=== PATIENT | female | born 1965 | race Caucasian/White ===

== ENCOUNTER 2020-09-06 07:46 | Outpatient (REF) | payer BC, SELFPAY ==
--- NOTE | 2020-09-06 08:43 | XR_ITS ---
EXAMINATION: XR CERVICAL SPINE CLINICAL INFORMATION: Pain COMPARISON: None TECHNIQUE: 3 views of the cervical spine were obtained. FINDINGS: Bone alignment is normal. No fracture or dislocation is seen. There is degenerative spondylosis and degenerative disc disease at C5-C6 and C6-C7. There is mild degenerative spondylosis at C4-C5. Prevertebral soft tissues are normal. XR/XR cervical spine 2V IMPRESSION: Degenerative changes.
[2020-09-06 10:12] LABS: Alanine Aminotransferase 21 U/L (0-31); Albumin Level 4.7 g/dL (3.5-5.0); Alkaline Phosphatase 92 U/L (39-117); Anion Gap 11 (12-20); Aspartate Amino Transferase 22 U/L (5-31); Bilirubin Total 0.4 mg/dL (0.0-1.0); Blood Urea Nitrogen 22 mg/dL (9-16); C Reactive Protein 0.26 mg/dL (< or = 0.50); Calcium 9.6 mg/dL (8.4-10.2); Carbon Dioxide 30 mmol/L (22-29); Chloride 101 mmol/L (96-108); Estimated Glomerular Filt Rate > 60; Glucose Random 93 mg/dL (60-115); Potassium 4.2 mmol/l (3.3-5.1); Rheumatoid Factor < 15.0 IU/mL (<15.0); Sodium 138 mmol/L (135-145); Total Protein 7.4 g/dL (6.5-8.0)
[2020-09-06 10:35] LABS: Thyroid Stimulating Hormone 1.24 uIU/mL (0.32-4.0)
[2020-09-07 11:42] LABS: Thyroglobulin Antibodies <1 IU/mL (< or = 1); Thyroid Peroxidase Antibodies 1 IU/mL (<9)
[2020-09-07 12:53] LABS: Anti DNA DS Antibody 1 IU/mL; Antibody to SS-A Antigen <1.0 NEG AI (<1.0 NEG); Antibody to SS-B Antigen <1.0 NEG AI (<1.0 NEG); SM/Ribonucleoprotein Ab <1.0 NEG AI (<1.0 NEG); Smith Protein <1.0 NEG AI (<1.0 NEG)
[2020-09-07 13:17] LABS: Complement C3 127 mg/dL (83-193)
[2020-09-10 11:37] LABS: Vitamin D 25-OH, D2 <4 ng/mL; Vitamin D 25-OH, D3 27 ng/mL; Vitamin D 25-OH, Total 27 ng/mL (30-100)
[2020-09-11 13:03] LABS: Anti Nuclear Antibody Screen POSITIVE (NEGATIVE); Anti Nuclear Antibody Titer 1:40 titer
[2020-09-11 13:33] LABS: Cyclic Citrullinated Peptide <16 UNITS
== END 2020-09-06 07:47 | disposition home or self-care (01) ==
LOC: HO.LAB 07:46
PROVIDERS: PCP Internal Medicine; Referring Provider Internal Medicine; Visit Provider Student in an Organized Health Care Education/Training Program
DX: M54.5 Low back pain (principal); M54.2 Cervicalgia
CPT/HCPCS: 36415; 72040; 80053; 82306; 82550; 84443; 86038; 86039; 86140; 86160; 86200; 86225; 86235; 86376; 86431; 86800

== ENCOUNTER → 2020-09-22 07:36 | Outpatient (BNVA) | payer BC, SELFPAY | PROVIDERS: PCP Internal Medicine; Visit Provider Student in an Organized Health Care Education/Training Program | DX: Z13.89 Encounter for screening for other disorder (principal) ==

== ENCOUNTER 2020-11-18 18:33 | Emergency (ER) | payer BC, SELFPAY ==
--- NOTE | ~2020-11-18 | XR_ITS ---
EXAMINATION: XR SHOULDER, RIGHT CLINICAL INFORMATION: Fall. Pain COMPARISON: None TECHNIQUE: Three views of the right shoulder. FINDINGS: Normal alignment. No fracture focal lesion or periosteal new bone. Surgical clips project in the axilla. No suspicious abnormality in the visualized portions of the chest. XR/XR shoulder RT min 2V IMPRESSION: No fracture or subluxation around the right shoulder.
[2020-11-18 18:44] VITALS: BP 138/75; PULSE 71; RESP 18; TEMP 36.7; O2SAT 98; BMI 29.2
--- NOTE | 2020-11-18 19:16 | ED.EXTPRO ---
HPI - Extremity Problem General Chief complaint: Extremity Injury, Upper Stated complaint: R shoulder pain Time Seen by Provider: 11/18/20 18:49 Source: patient Mode of arrival: ambulatory Limitations: no limitations History of Present Illness HPI Narrative: 55 yo female here with shoulder pain s/p fall. Patient tells me she was out hiking and slipped on the ice. She tried to catch herself with her right arm and so she grabbed a tree branch externally rotating and hyperextending her arm backwards. Denies hitting her head or loss of consciousness. The patient is here with right upper extremity pain and limited range of motion Related Data Home Medications Medication Instructions Recorded Confirmed acetaminophen 325 mg tablet 650 mg PO Q6H PRN 09/06/20 09/06/20 ibuprofen 200 mg tablet 400 mg PO Q8H 09/06/20 09/06/20 Previous Rx's Medication Instructions Recorded levothyroxine 50 mcg tablet 50 mcg PO DAILY #90 tab 08/15/20 lisinopril 10 1 tab PO DAILY #90 tab 08/15/20 mg-hydrochlorothiazide 12.5 mg tablet citalopram 20 mg tablet 10 mg PO DAILY #45 tab 09/01/20 trazodone 50 mg tablet 50 mg PO BEDTIME PRN #90 tab 09/06/20 Allergies Allergy/AdvReac Type Severity Reaction Status Date / Time codeine [CODEINE] Allergy Intermediate VOMIT Verified 09/22/20 07:40 Review of Systems Review of Systems: Yes all other systems are reviewed and are negative Constitutional: Constitutional: Reports no additional constitutional complaints, Denies body ache(s), Denies chills, Denies fever(s), Denies headache(s) and Denies weakness Eyes: Eyes: Reports no additional eye complaints and Denies change in vision ENT: Reports system reviewed and no additional complaints, except as documented, Denies dizziness, Denies headache(s), Denies nasal congestion, Denies nasal discharge and Denies neck pain Cardiovascular: Cardiovascular: Reports no additional cardiovascular complaints, Denies chest pain, Denies leg edema and Denies dyspnea Respiratory: Respiratory: Reports no additional respiratory complaints, Denies cough and Denies dyspnea Gastrointestinal: Gastrointestinal: Reports no additional gastrointestinal complaints, Denies abdominal pain, Denies diarrhea, Denies nausea and Denies vomiting Genitourinary: Genitourinary: Reports no additional female genitourinary complaints and Denies urinary incontinence Musculoskeletal: Musculoskeletal: Reports no additional musculoskeletal complaints, Denies back pain, Reports arthralgias, Denies joint swelling, Reports limited range of motion, Denies neck pain, Denies numbness and Denies tingling Integumentary/Breasts: Skin/Breast: Reports system reviewed and no additional complaints, except as docu and Denies rash Neurologic: Reports system reviewed and no additional complaints, except as documented, Denies Abnormal speech present, Denies dizziness, Denies headache(s), Denies numbness, Denies tingling and Denies weakness PMF Past Medical History Attestation statement: The following information was validated with the patient. Source: old records reviewed and nursing notes reviewed Medical History Breast cancer Hypertension Hypothyroid Surgical History H/O bilateral mastectomy Social History Social History Alcohol intake: never Smoking Status: Never smoker Advance Directives: No Advance Directives Information Provided: No Physical Exam Vital Signs: Vital Signs: Last Vital Signs Temp 98.1 F 11/18/20 18:44 Pulse 71 11/18/20 18:44 Resp 18 11/18/20 18:44 BP 138/75 11/18/20 18:44 Pulse Ox 98 11/18/20 18:44 Body Mass Index 29.2 Const: General: cooperative, healthy appearing, comfortable and no acute distress Orientation/consciousness: patient oriented x3 Limitations: no limitations HENMT: Head: Yes normal to inspection Ears: hearing grossly normal bilaterally General nose exam: Normal external nose present Face and sinus: Yes normal facial exam Mouth: Normal oral and palatal mucosa present Throat: Yes posterior oropharynx normal Eyes: General: appearance normal, both eyes and all related structures Pupils: Equal, round and reactive pupils present Neck: Neck: Yes normal visual inspection Chest: Chest palpation & inspection: normal inspection of the chest Resp: Effort & Inspection: normal respiratory effort Auscultation: clear to auscultation bilaterally Cardio: Rate: regular rate Rhythm: regular rhythm Peripheral pulses: Peripheral pulses 2+ throughout GI: Inspection: Yes normal to inspection Palpation (GI): Soft to palpation and nontender Auscultation: normal bowel sounds Back/Spine/Pelvis: Thoracic/Lumbar Spine: thoracic and lumbar spine normal to inspection Skin: General skin exam: no rashes or lesions noted Neuro: General: patient oriented x3, no focal motor deficits and normal sensation to monofilament Cranial nerves: Yes Equal, round and reactive pupils present Cognition (Neuro): normal cognition Speech: No Abnormal speech present Gait exam (Neuro): Normal gait present Motor exam (neuro): 5/5 motor strength present throughout Extrem: General: Yes normal to inspection Right upper extremity: normal to inspection (Tenderness over the anterior shoulder), full ROM (Patient with very limited range of motion with abduction. ) and normal capillary refill; no cyanosis, no edema and joint enlargement noted Course Course Course Narrative: 55 yo female here with right shoulder pain, limited rom after a external rotation/hyperextension injury today. X-rays show no acute fracture or subluxation. Over the mid shaft of the clavicle concern for ?fx however discussed with radiologist who tells me this is a nutrient vessel and no fx. AC joint intact. Due to limited ROM and moderate pain on exam will place in sling and refer to orthopedics for repeat evaluation. Reviewed worrisome signs and symptoms would return to the emergency department. Comfortable discharge home. Procedures Orthopedic Splinting/Casting Injury #1: Side: right Upper Extremity Injury Location: shoulder Upper Extremity Immobilizer: sling/shoulder immobilizer MDM - Extremity (Nontraumatic) Imaging Data shoulder x-ray: Attestation: I personally reviewed and interpreted this imaging study as follows: Radiologist's impression: [address] [id number] ReportSigned Patient: Shana Dove#: [id number]: 1965Acct:[id number]/Sex: 55 / FADM Date: 11/18/20Loc: [facility] Dr: Ordering Physician: VIN WILKINSON NP Date of Service: 11/18/20 Procedure(s): XR shoulder RT min 2V Accession Number(s): [id number] cc: VIN WILKINSON NP~ EXAMINATION: XR SHOULDER, RIGHT CLINICAL INFORMATION: Fall. Pain COMPARISON: None TECHNIQUE: Three views of the right shoulder. FINDINGS: Normal alignment. No fracture focal lesion or periosteal new bone. Surgical clips project in the axilla. No suspicious abnormality in the visualized portions of the chest. XR/XR shoulder RT min 2V IMPRESSION: No fracture or subluxation around the right shoulder. Discharge Plan Discharge Clinical Impression: Right shoulder strain Qualifiers: Encounter type: initial encounter Qualified Code(s): S46.911A - Strain of unspecified muscle, fascia and tendon at shoulder and upper arm level, right arm, initial encounter Patient Disposition: Home, Self-Care Instructions: Muscle Strain (ED) Additional Instructions: Ice to the area. 20 minutes on 20 minutes off Sling for comfort Call orthopedics Friday for a follow-up appointment. Your x-rays were read as unremarkable however due to the mechanism of injury and your amount of pain with limited range of motion we will refer you to orthopedics. Prescriptions: No Action levothyroxine 50 mcg tablet 50 mcg PO DAILY Qty: 90 RF: 1 lisinopril-hydrochlorothiazide 10-12.5 mg tablet 1 tab PO DAILY Qty: 90 RF: 1 citalopram 20 mg tablet 10 mg PO DAILY Qty: 45 RF: 1 trazodone 50 mg tablet 50 mg PO BEDTIME PRN (Reason: insomnia) Qty: 90 RF: 1 ibuprofen 200 mg tablet 400 mg PO Q8H RF: 0 acetaminophen [Tylenol] 325 mg tablet 650 mg PO Q6H PRNRF: 0 Referrals: Jam Rodgers PA-C [Physician [employer] Refe[employer]] - 2 days Interventions: ED Discharge Assessment Last Done: 11/18/20 19:48 Discharge Date/Time: 11/18/20 19:49
[2020-11-18] MEDS: Ibuprofen 400 MG TABLET 600 MG PO (19:37)
== END 2020-11-18 19:49 | disposition home or self-care (01) ==
PROVIDERS: Emergency Provider Internal Medicine; PCP Internal Medicine
DX: S46.911A Strain of unspecified muscle, fascia and tendon at shoulder and upper arm level, right arm, initial encounter (principal); W00.0XXA Fall on same level due to ice and snow, initial encounter; I10 Essential (primary) hypertension; Y93.31 Activity, mountain climbing, rock climbing and wall climbing; Y92.828 Other wilderness area as the place of occurrence of the external cause; Y99.8 Other external cause status; Z85.3 Personal history of malignant neoplasm of breast
CPT/HCPCS: 73030; 99283

== ENCOUNTER 2021-06-13 10:32 | Outpatient (REF) | payer BC, SELFPAY ==
[2021-06-13 11:29] LABS: Hematocrit 37.2 % (37-47); Hemoglobin 12.6 g/dl (12.0-16.0); Mean Corpuscular HGB Conc 33.9 g/dl (31.0-35.0); Mean Corpuscular Hemoglobin 30.7 pg (27.0-33.0); Mean Corpuscular Volume 90.7 fL (80-98); Mean Platelet Volume 9.4 fL (9.4-12.3); Platelet Count 265 X10*3/uL (160-400); Red Cell Distribution Width 11.7 % (11.0-16.0); White Blood Count 4.6 X10*3/uL (4.8-10.8)
[2021-06-13 12:11] LABS: Creatinine Urine 92.32 mg/dL; Microalbum/Creatinine Ratio Ur 10.8 ug/mg cr
[2021-06-13 12:54] LABS: Alanine Aminotransferase 12 U/L (0-31); Albumin Level 4.5 g/dL (3.5-5.0); Alkaline Phosphatase 78 U/L (39-117); Anion Gap 12 (12-20); Aspartate Amino Transferase 16 U/L (5-31); Bilirubin Total 0.2 mg/dL (0.0-1.0); Blood Urea Nitrogen 23 mg/dL (9-16); Calcium 9.4 mg/dL (8.4-10.2); Carbon Dioxide 28 mmol/L (22-29); Chloride 104 mmol/L (96-108); Cholesterol 232 mg/dL; Estimated Glomerular Filt Rate > 60; Glucose Fasting 96 mg/dL (60-99); HDL Cholesterol 81 mg/dL; LDL Cholesterol Calculated 143 mg/dl; Potassium 4.1 mmol/L (3.3-5.1); Sodium 140 mmol/L (135-145); Triglycerides 42 mg/dL
== END 2021-06-13 10:33 | disposition home or self-care (01) ==
LOC: HO.LAB 10:32
PROVIDERS: PCP Internal Medicine; Visit Provider Physician Assistant
DX: I10 Essential (primary) hypertension (principal); E78.1 Pure hyperglyceridemia; E03.9 Hypothyroidism, unspecified
CPT/HCPCS: 36415; 80053; 80061; 82043; 84443; 85027

== ENCOUNTER 2021-07-01 10:27 | Emergency (ER) | payer BC, SELFPAY ==
--- NOTE | ~2021-07-01 | CT_ITS ---
EXAMINATION: CT HEAD WITHOUT CONTRAST CLINICAL INFORMATION: Left frontal headaches COMPARISON: None TECHNIQUE: Contiguous axial imaging was performed from the skull base to vertex without intravenous administration of contrast. This CT examination was performed using dose optimization techniques as appropriate, variously including the following: *Automated exposure control *Adjustment of mA and/or kV according to patient size (this includes techniques or standardized protocols for targeted exams where dose is matched to indication/reason for exam; i.e. extremities or head) *Use of iterative reconstruction technique DLP: 609 mGy-cm FINDINGS: There is no evidence of acute intracranial hemorrhage or territorial infarction. No abnormal mass effect or midline shift is seen. Dean to white matter differentiation is well preserved. No extra-axial fluid collections are identified. The ventricles are normal in size. There is no abnormal attenuation within the brain parenchyma. The osseous structures and soft tissues are normal. The mastoid air cells and visualized portions of the paranasal sinuses are well aerated. CT/CT head/brain wo con IMPRESSION: No acute intracranial pathology.
[2021-07-01 10:35] VITALS: BP 153/94; PULSE 73; RESP 18; TEMP 36.6; O2SAT 100; BMI 28.3
[2021-07-01 10:54] VITALS: BP 157/58; PULSE 67; RESP 12; TEMP 36.8; O2SAT 98
--- NOTE | 2021-07-01 11:13 | ED.HA ---
HPI - Headache General Chief Complaint: Headache Stated Complaint: l sided head pain sweats Time Seen by Provider: 07/01/21 10:39 Source: patient and family Mode of arrival: ambulatory Limitations: no limitations History of Present Illness HPI Narrative: 55-year-old female presents complaining of left-sided headache. She states that is much better than it was yesterday. She states she took her regular migraine medication yesterday and symptoms have resolved but yesterday she had sweating and it was a sharp pain to left side. Asked if this is her typical migraine she stated that it was different but could not explain how it was different. She states she typically has pain to the back of her neck. She denies any falls fevers nausea vomiting or diarrhea. Patient states she was at work yesterday was holding her head. She has been taking aspirin for the past several days for her headache as well. She states she has longstanding history of migraines negative herself Imitrex. Her talked her into coming in here Related Data Previous Rx's Medication Instructions Recorded trazodone 50 mg tablet 50 mg PO BEDTIME PRN #90 tab 06/05/21 citalopram 20 mg tablet 20 mg PO DAILY #90 tab 06/06/21 levothyroxine 50 mcg tablet 50 mcg PO DAILY #90 tab 06/06/21 lisinopril 10 1 tab PO DAILY #90 tab 06/06/21 mg-hydrochlorothiazide 12.5 mg tablet sumatriptan succinate 25 mg tablet 25 mg PO Q2-4H PRN 30 Days #9 tab 06/06/21 Allergies Allergy/AdvReac Type Severity Reaction Status Date / Time codeine [CODEINE] Allergy Intermediate VOMIT Verified 06/06/21 13:58 Review of Systems Review of Systems: Review of systems: General: Patient denies any fever chills recent illness or falls Musculoskeletal: Denies back pain or body aches or other injuries HEENT: denies headache, runny nose, ear pain Respiratory: denies shortness of breath, cough Cardiovascular: no chest pain or palpitations : denies dysuria, frequency Abdomen: no nausea vomiting denies abdominal pain Extremities: no swelling, no pain Skin: no diaphoresis Yes all other systems are reviewed and are negative PMF Past Medical History Medical History (Updated 07/01/21 @ 12:26 by Malik Mejia DO) Breast cancer Hypertension Hypothyroid Surgical History H/O bilateral mastectomy Social History Social History Housing: House Alcohol intake: never Patient Tobacco Use Status: Never used Tobacco e-Cigarette/Vaping Use: Never Used Second Hand Smoke Exposure: No Use of substances other than those prescribed or required for medical reasons: No Advance Directives: No Advance Directives Information Provided: No Patient : No Physical Exam Vital Signs: Vital Signs: Last Vital Signs Temp 98.2 F 07/01/21 11:57 Pulse 56 07/01/21 11:57 Resp 16 07/01/21 11:57 BP 147/76 H 07/01/21 11:57 Pulse Ox 98 07/01/21 11:57 Body Mass Index 28.3 Neurological exam: CN II- XII tested. Patient is alert and oriented to person place and time. Patient has no dysphagia or dysarthia, denies good vision in all four vision olguin no nystagmus on exam, good strength to upper and lower extremities with normal reflexes to brachioradialis, wrist, patella and achilles. Negative romberg, good finger to nose and heel to prather. General: Well-appearing well-nourished in no signs of distress HEENT: Normocephalic atraumatic Neck: No signs of JVD, no masses no tenderness or lymphadenopathy Cardiovascular: Regular rate and rhythm Respiratory: Clear to auscultation bilaterally Abdomen: Soft nontender no masses Extremities: Normal pedal pulses no signs of edema Skin: Dry warm no rashes Back: No tenderness full ROM MDM - Headache MDM Narrative Medical decision making narrative: Patient with signs of a migraine pain is unilateral yesterday she had sharp pains and she states she had some sweating. She has chronic neck pain and stiffness but no fevers no signs of meningitis. Patient looks well and she states she has never had any imaging even though she has had migraines for years. She did take her normal migraine cocktail yesterday. I offered to give her a migraine cocktail here but she refuses to have any IVs. She states she only wants meds and pill form and is adamant that she has to have neuro imaging at this time. I will give the patient naproxen and reassess. CT head was ordered. CT is normal patient looks well I will discharge home Discharge Plan Discharge Clinical Impression: Headache Patient Disposition: Home, Self-Care Instructions: General Headache (ED) Additional Instructions: Her CT scan was completely normal please take Tylenol ibuprofen for pain please call follow-up with her doctor. Prescriptions: No Action trazodone 50 mg tablet 50 mg PO BEDTIME PRN (Reason: for insomnia) Qty: 90 RF: 1 citalopram 20 mg tablet 20 mg PO DAILY Qty: 90 RF: 1 levothyroxine 50 mcg tablet 50 mcg PO DAILY Qty: 90 RF: 1 lisinopril-hydrochlorothiazide 10-12.5 mg tablet 1 tab PO DAILY Qty: 90 RF: 1 sumatriptan succinate 25 mg tablet 25 mg PO Q2-4H PRN (Reason: migraine headache) 30 Days Qty: 9 RF: 0 Stand Alone Forms: Work/School Release
[2021-07-01] MEDS: NaPROXEN 500 MG TABLET PO (11:43)
[2021-07-01 11:57] VITALS: BP 147/76; PULSE 56; RESP 16; TEMP 36.8; O2SAT 98
== END 2021-07-01 12:30 | disposition home or self-care (01) ==
PROVIDERS: Emergency Provider Student in an Organized Health Care Education/Training Program; PCP Internal Medicine
DX: R51.9 Headache, unspecified (principal); I10 Essential (primary) hypertension
CPT/HCPCS: 70450; 99284

== ENCOUNTER 2022-01-12 19:00 | Emergency (ER) | payer BC, SELFPAY ==
--- NOTE | ~2022-01-12 | XR_ITS ---
EXAMINATION: XR SHOULDER, LEFT CLINICAL INFORMATION: Left shoulder pain. COMPARISON: None TECHNIQUE: AP external rotation, Grashey, scapular Y, and axillary views of the left shoulder. FINDINGS: No acute fracture or dislocation. Small acromioclavicular marginal osteophytes. No osseous erosion. No abnormal soft tissue calcification. Left axillary surgical clips. XR/XR shoulder LT min 2V IMPRESSION: Mild acromioclavicular osteoarthritis.
[2022-01-12 19:11] VITALS: BP 143/64; PULSE 67; RESP 18; TEMP 36.5; O2SAT 99; BMI 29.2
--- NOTE | 2022-01-12 19:42 | ED_ITS ---
HPI - Extremity Injury (Upper) General Chief Complaint: Extremity Injury, Lower Stated Complaint: left shoulder pain work injury Time Seen by Provider: 01/12/22 19:16 Source: patient Mode of arrival: ambulatory Limitations: no limitations History of Present Illness HPI narrative: This is a 56-year-old female past medical history significant for hypertension, hyperlipidemia, migraines, anxiety, hypothyroidism presenting to the emergency department with complaints of left shoulder pain atraumatic, and pain with deep inspiration. Patient tells me that she works at the [employer] and does a lot of overhead motions with her shoulders, she tells me that today she started having a sharp pain to the left shoulder, and shortness of breath, worse with deep inspiration all at the same time. She tells me at this time she has full range of motion to that shoulder however painful. She tells me she typically has a sore shoulder however not painful like this. She denies chest pain, nausea, vomiting, abdominal pain, fevers, chills. Patient is currently not taking any control medication, denies long travel, she tells me she does not have a sedentary lifestyle, no history of PE or DVT. Patient is not on anticoagulation MD complaint: injury to: left Onset (ago): hour(s) (5) Handedness: left Place: work Severity: severe Relieving factors: none Exacerbating factors: movement of extremity Associated symptoms: denies other symptoms Related Data Previous Rx's Medication Instructions Recorded trazodone 50 mg tablet 50 mg PO BEDTIME PRN #90 tab 06/05/21 citalopram 20 mg tablet 20 mg PO DAILY #90 tab 06/06/21 levothyroxine 50 mcg tablet 50 mcg PO DAILY #90 tab 06/06/21 lisinopril 10 1 tab PO DAILY #90 tab 06/06/21 mg-hydrochlorothiazide 12.5 mg tablet sumatriptan succinate 25 mg tablet 25 mg PO Q2-4H PRN 30 Days #9 tab 06/06/21 Allergies Allergy/AdvReac Type Severity Reaction Status Date / Time codeine [CODEINE] Allergy Intermediate VOMIT Verified 06/06/21 13:58 Review of Systems Review of Systems: Constitutional : No Weight loss, No Fever, No Chills, No Fatigue, No Malaise ENT/Mouth : No sore throat, No Rhinorrhea Eyes: No Eye Pain, No Swelling, No Redness Cardiovascular : No Chest Pain, + SOB, No Dyspnea on Exertion, No Orthopnea, No Edema, No Palpitations Respiratory : No Cough, No Sputum, No Wheezing Gastrointestinal : No Nausea, No Vomiting, No Diarrhea, No Constipation, No abdominal Pain, No Hematochezia, No Melena Genitourinary : No Dysuria, No Urinary Frequency, No Hematuria, Musculoskeletal : + joint pain, No Myalgias, No Joint Swelling Skin : No Skin Lesions, No rash Neuro : No Weakness, No Numbness, No Dizziness, No Headache Psych : No Anxiety/Panic, No Depression All other systems reviewed and are negative Yes all other systems are reviewed and are negative [facility] Past Medical History Attestation statement: The following information was validated with the patient. Source: old records reviewed and nursing notes reviewed Medical History (Updated 01/12/22 @ 19:57 by SANTIAGO Chapman) Breast cancer Hypertension Hypothyroid Surgical History H/O bilateral mastectomy Social History Social History Housing: House Alcohol intake: never Patient Tobacco Use Status: Never used Tobacco e-Cigarette/Vaping Use: Never Used Second Hand Smoke Exposure: No Advance Directives: No Physical Exam Vital Signs: Vital Signs: Last Vital Signs Temp 97.7 F 01/12/22 19:11 Pulse 67 01/12/22 19:11 Resp 18 01/12/22 19:11 BP 143/64 H 01/12/22 19:11 Pulse Ox 99 01/12/22 19:11 BMI result Body Mass Index 29.2 Vital signs stable Appearance: Alert.? Oriented X3.? No acute distress.? Head: Normocephalic, atraumatic, no step-offs or deformities Eyes: Pupils equal, round and reactive to light.? ENT: Pharynx normal.? Neck: Normal inspection.? Neck supple.? CVS: Normal heart rate and rhythm.? Pulses normal.? Respiratory: No respiratory distress.? Breath sounds normal.? Abdomen: Soft and nontender.? Skin: Skin warm and dry.? Normal skin color.? Normal skin turgor.? Extremities: No lower extremity edema.? No calf ttp. 5/5 strength to bilateral upper and lower extremities +full range of motion to b/l shoulders, elbows however she reports pain with ROM of left shoulder. No wrist drop bilaterally. No step-offs or deformities. No pain with palpation over AC joint, no separation noted. Radial pulses 2+ equal bilateral. Sensory and motor intact b/l. Neuro: Oriented X 3.? No motor deficit.? No sensory deficit. CN 2-12 intact Course Reevaluation(s) Reevaluation #1: Troponin negative. EKG nonischemic showing sinus bradycardia. Patient is having bradycardia however asymptomatic no dizziness, vision changes, lightheadedness. D-dimer negative. Unlikely that this is a PE or ACS. Patient not complaining of chest pain or shortness of breath. She now tells me that her pain with inspiration is worse when her shoulder hurts. Advised patient to follow-up with her PCP and orthopedics in 2 weeks if pain does not improve. Advised her she can take ibuprofen every 6 hours, Tylenol every 4 as needed for pain or discomfort. I educated patient on the fact that x-ray is not the preferred modality to evaluate ligaments or tendons and she may require further imaging such as an MRI in the future if pain persists. Advised her to return with new or worsening symptoms, outlined them on her discharge. Comfortable discharge home with PCP and Ortho follow-up as needed. Time: 21:04 MDM - Extremity Injury (Upper) [facility] Narrative Medical decision making narrative: 1945 56 yo f presents w/ atraumatic left shoulder pain progressively worsening over months, with an acute episode of severe shoulder pain today and associated shortness of breath, and pain with inspiration. Physical examination significant for full range of motion to bilateral shoulders, elbows however she reports pain with means of motion to left shoulder. No wrist drop bilaterally. radial pulses 2+ equal bilateral. Sensory and motor intact. Neurovascularly intact. Lungs clear. Regular rate and rhythm. Neuro nonfocal. Plan at this time is to obtain plain films to rule out acute fracture, dislocation, effusions, osteoarthritis Based off patient history and physical examination unlikely that this is a ligament or tendon tear. Likely osteoarthritis or rotator cuff inflammation. Due to patient's history and physical exam will also rule out ACS and PE. Medical Records Attestation: I reviewed the patient's medical records. Lab Data Attestation: I reviewed the patient's lab results. Labs: Lab Results 01/12/22 01/12/22 01/12/22 Range/Units 20:28 20:28 20:30 D-Dimer High Sensitivty < 150 NG/ML Troponin I High Sens < 3.5 (<3.5-17.0) ng/L Hold Yellow Top See Note Critical Care Time Critical Care Time Critical Care Time: No Discharge Plan Discharge Clinical Impression: Osteoarthritis of AC (acromioclavicular) joint, Osteoarthritis Patient Disposition: Home, Self-Care Instructions: Swollen Shoulder Joint (ED) Additional Instructions: Take your medications as prescribed. If you were prescribed antibiotics today, it is important that you take your medication to their entirety, do not skip any doses, do not finish them early. Follow-up with your primary care provider this week. Follow-up with orthopedics if symptoms do not improve within 1-2 weeks. You may require further imaging such as an MRI. You can take ibuprofen every 6 hours, Tylenol every 4 as needed for pain or discomfort. Return to the emergency department with new or worsening symptoms. Such as fevers, chills, chest pain, shortness of breath, nausea, vomiting, dizziness, headache, vision changes, lethargy, numbness, tingling, calf pain or tenderness, leg swelling. In case of emergency call 911 Your EKG looked good, no signs of acute ischemia. Your screening test for blood clot was negative. Your cardiac enzyme was also negative. Prescriptions: No Action trazodone 50 mg tablet 50 mg PO BEDTIME PRN (Reason: for insomnia) Qty: 90 1RF citalopram 20 mg tablet 20 mg PO DAILY Qty: 90 1RF levothyroxine 50 mcg tablet 50 mcg PO DAILY Qty: 90 1RF lisinopril-hydrochlorothiazide 10-12.5 mg tablet 1 tab PO DAILY Qty: 90 1RF sumatriptan succinate 25 mg tablet 25 mg PO Q2-4H PRN (Reason: migraine headache) 30 Days Qty: 9 0RF Rx Instructions: do not exceed 8 doses per 24 hrs Referrals: [facility] [Provider Group] - 2 weeks Jovanni Jimenez PA-C [Primary Care Provider] - 3 days Stand Alone Forms: Work/School Release
--- NOTE | 2022-01-12 20:12 | ECG_ITS ---
Test Reason : CHEST PAIN Blood Pressure : / mmHG Vent. Rate : 056 BPM Atrial Rate : 056 BPM P-R Int : 158 ms QRS Dur : 086 ms QT Int : 432 ms P-R-T Axes : 066 010 030 degrees QTc Int : 416 ms Sinus bradycardia Otherwise normal ECG No previous ECGs available Referred By: Rogelio Swan Electronically Signed By:HARDIK ZARAGOZA
[2022-01-12 20:59] LABS: Troponin-I High Sensitivity < 3.5 ng/L (<3.5-17.0)
[2022-01-12 21:02] LABS: D Dimer High Sensitivity < 150 NG/ML
== END 2022-01-12 21:28 | disposition home or self-care (01) ==
PROVIDERS: Physician Assistant; Emergency Provider Emergency Medicine Emergency Medical Services; PCP Physician Assistant
DX: M19.012 Primary osteoarthritis, left shoulder (principal); R06.02 Shortness of breath; I10 Essential (primary) hypertension
CPT/HCPCS: 36415; 73030; 84484; 85379; 93005; 99283

== ENCOUNTER 2022-01-14 10:46 | Emergency (ER) | payer BC, SELFPAY ==
[2022-01-14 11:04] VITALS: BP 134/69; PULSE 70; RESP 16; TEMP 36.3; O2SAT 100; BMI 28.3
--- NOTE | 2022-01-14 11:04 | ECG_ITS ---
Test Reason : cp,shldr pain Blood Pressure : / mmHG Vent. Rate : 069 BPM Atrial Rate : 069 BPM P-R Int : 136 ms QRS Dur : 088 ms QT Int : 402 ms P-R-T Axes : 066 014 056 degrees QTc Int : 430 ms Normal sinus rhythm Normal ECG When compared with ECG of 12-JAN-2022 20:34, Nonspecific T wave abnormality now evident in Lateral leads Referred By: Generic ED Physician Electronically Signed By:SHIKHA WALKER MD
== END 2022-01-14 16:01 | disposition left against medical advice (07) ==
PROVIDERS: Emergency Provider Emergency Medicine; PCP Physician Assistant
DX: R07.89 Other chest pain (principal); M25.512 Pain in left shoulder; M25.511 Pain in right shoulder
CPT/HCPCS: 93005; 99282; 99283

== ENCOUNTER 2022-01-30 15:46 | Outpatient (REF) | payer BC, SELFPAY ==
--- NOTE | ~2022-01-30 | XR_ITS ---
EXAMINATION: XR HIP, LEFT CLINICAL INFORMATION: Pain COMPARISON: None TECHNIQUE: Two views of the left hip. FINDINGS: Bones and soft tissues are normal. No fracture. Alignment is anatomic. Hip joint space is maintained. XR/XR hip LT min 2V IMPRESSION: Normal left hip.
== END 2022-01-30 15:47 | disposition home or self-care (01) ==
LOC: HO.XRAY 15:46
PROVIDERS: PCP Physician Assistant; Visit Provider Physician Assistant
DX: M25.552 Pain in left hip (principal)
CPT/HCPCS: 73502

== ENCOUNTER → 2022-02-01 08:18 | Outpatient (BNVA) | payer BC, SELFPAY | PROVIDERS: PCP Physician Assistant; Visit Provider Physician Assistant | DX: M75.102 Unspecified rotator cuff tear or rupture of left shoulder, not specified as traumatic (principal); M54.12 Radiculopathy, cervical region; M70.62 Trochanteric bursitis, left hip | CPT/HCPCS: 20610; J1040 ==

== ENCOUNTER → 2022-02-05 11:19 | Outpatient (BNVA) | payer BC, SELFPAY | PROVIDERS: PCP Physician Assistant; Visit Provider Physician Assistant | DX: M75.102 Unspecified rotator cuff tear or rupture of left shoulder, not specified as traumatic (principal) | CPT/HCPCS: 20610; J1040 ==

== ENCOUNTER 2022-02-17 13:41 | Emergency (ER) | payer BC, SELFPAY ==
--- NOTE | 2022-02-17 | ECG_ITS ---
Test Reason : CP Blood Pressure : / mmHG Vent. Rate : 065 BPM Atrial Rate : 065 BPM P-R Int : 134 ms QRS Dur : 094 ms QT Int : 404 ms P-R-T Axes : 070 019 051 degrees QTc Int : 420 ms Normal sinus rhythm Incomplete right bundle branch block Borderline ECG When compared with ECG of 14-JAN-2022 11:01, No significant change was found Referred By: Generic ED Physician Electronically Signed By:HARDIK ZARAGOZA
[2022-02-17 14:02] VITALS: BP 146/77; PULSE 68; RESP 18; TEMP 36.3; O2SAT 99; BMI 28.3
--- NOTE | 2022-02-17 15:51 | ED.EXTPRO ---
HPI - Extremity Problem General Chief complaint: Extremity Problem Stated complaint: L hip pain Time Seen by Provider: 02/17/22 14:12 Source: patient Mode of arrival: ambulatory History of Present Illness HPI Narrative: 56-year-old female with history of thyroid dysfunction presents with complaints of left hip giving out at work last night. She did not hit her head or lose consciousness. In the triage note patient states that she felt a snap with a burning pain, however she endorses that her hip has been an ongoing problem and she has seen both her primary care provider as well as Orthopedics. She states that Orthopedics ?injected her? but that she continues to have left hip pain. She denies any fever, chills, bowel or bladder dysfunction, fevers, chills. Patient has concerns regarding MS. Related Data Previous Rx's Medication Instructions Recorded citalopram 20 mg tablet 20 mg PO DAILY #90 tab 06/06/21 levothyroxine 50 mcg tablet 50 mcg PO DAILY #90 tab 06/06/21 sumatriptan succinate 25 mg tablet 25 mg PO Q2-4H PRN 30 Days #9 tab 06/06/21 trazodone 50 mg tablet 50 mg PO BEDTIME PRN #90 tab 01/15/22 lisinopril 10 1 tab PO DAILY #90 tab 02/07/22 mg-hydrochlorothiazide 12.5 mg tablet diclofenac sodium 75 mg 75 mg PO BID PRN 15 Days #30 tab 02/12/22 tablet,delayed release Allergies Allergy/AdvReac Type Severity Reaction Status Date / Time codeine [CODEINE] Allergy Intermediate VOMIT Verified 02/17/22 14:02 Review of Systems Review of Systems: Pertinent positives and negatives as stated in HPI 10 point review of systems is otherwise negative. [facility] Past Medical History Source: nursing notes reviewed Medical History Arthritis Breast cancer Costochondritis Fibromyalgia Hypertension Hypothyroid Surgical History H/O bilateral mastectomy Social History Social History Housing: House Alcohol intake: never Patient Tobacco Use Status: Never used Tobacco e-Cigarette/Vaping Use: Never Used Second Hand Smoke Exposure: No Advance Directives: No Advance Directives Information Provided: No service: No Current occupational status: employed Current occupation: [employer] Cognitive needs: No Hearing needs: No Vision needs: No Physical Exam Vital Signs: Vital Signs: Last Vital Signs Temp 97.3 F 02/17/22 14:02 Pulse 68 02/17/22 14:02 Resp 18 02/17/22 14:02 BP 146/77 H 02/17/22 14:02 Pulse Ox 99 02/17/22 14:02 BMI result Body Mass Index 28.3 VITAL SIGNS: Reviewed. GENERAL: Well developed, well nourished, in no acute distress. HEAD: Normocephalic/atraumatic EYES: PERRLA, EOMI EARS: Ext canals without abnormality OROPHARYNX: no oral lesions noted, posterior pharynx clear LUNGS: Normal breath sounds. No adventitious sounds or accessory muscle use. SpO2<99> CARDIOVASCULAR: Regular rate and rhythm without noted murmurs ABDOMEN: Soft, non-tender, non-distended with bowel sounds. MUSCULOSKELETAL: No tenderness, deformities, or effusions noted on gross inspection. EXTREMITIES: No cyanosis, clubbing or edema. SKIN: Inspection of the skin reveals no rashes NEUROLOGIC: Alert and oriented x 4. Strength and sensation to light touch were grossly intact x 4. Course Course Course Narrative: 56-year-old female with history and clinical presentation consistent multiple areas of osteoarthritis and now with left hip pain. Will obtain basic labs and will for inflammatory markers but patient was extensively counseled that there is no concern for hip or pelvic fracture and no evidence Notified by nursing that patient eloped MDM - Extremity (Nontraumatic) ECG Data Attestation EKG: I personally reviewed and interpreted this ECG as follows: Prior ECG tracings: available for review Interpretation: Normal sinus rhythm, incomplete right bundle branch block, heart rate 65, no STEMI, CT/QRS/QTC is within normal limits. Discharge Plan Discharge Clinical Impression: Hip pain, left Patient Disposition: Elopement Prescriptions: No Action trazodone 50 mg tablet 50 mg PO BEDTIME PRN (Reason: for insomnia) Qty: 90 0RF lisinopril-hydrochlorothiazide 10-12.5 mg tablet 1 tab PO DAILY Qty: 90 2RF diclofenac sodium 75 mg tablet,delayed release (DR/EC) 75 mg PO BID PRN (Reason: pain) 15 Days Qty: 30 0RF citalopram 20 mg tablet 20 mg PO DAILY Qty: 90 1RF levothyroxine 50 mcg tablet 50 mcg PO DAILY Qty: 90 1RF sumatriptan succinate 25 mg tablet 25 mg PO Q2-4H PRN (Reason: migraine headache) 30 Days Qty: 9 0RF Rx Instructions: do not exceed 8 doses per 24 hrs
== END 2022-02-17 17:28 | disposition left against medical advice (07) ==
PROVIDERS: Emergency Provider Student in an Organized Health Care Education/Training Program; PCP Physician Assistant
DX: M25.552 Pain in left hip (principal); I10 Essential (primary) hypertension; E78.5 Hyperlipidemia, unspecified
CPT/HCPCS: 93005; 99282; 99283

== ENCOUNTER 2022-02-26 11:38 | Outpatient (REF) | payer BC, SELFPAY ==
--- NOTE | ~2022-02-26 | XR_ITS ---
EXAMINATION: SI JOINTS. SACRUM/COCCYX CLINICAL INFORMATION: Sacrococcygeal disorder. COMPARISON: None TECHNIQUE: Sacrum/coccyx 3 views. SI joints 3 views. FINDINGS: SI joint: There is mild sclerosis seen along bilateral SI joints slightly greater on the right side but no erosive changes. No visible fracture or lytic process seen. Sacrum/coccyx: There is no visible fracture or lytic process. The soft tissues are normal. XR/XR sacroiliac joint min 3V IMPRESSION: Bilateral sacroiliitis. There is no visible acute fracture involving the sacrum or coccyx. The soft tissues are normal..
--- NOTE | ~2022-02-26 | XR_ITS ---
EXAMINATION: SI JOINTS. SACRUM/COCCYX CLINICAL INFORMATION: Sacrococcygeal disorder. COMPARISON: None TECHNIQUE: Sacrum/coccyx 3 views. SI joints 3 views. FINDINGS: SI joint: There is mild sclerosis seen along bilateral SI joints slightly greater on the right side but no erosive changes. No visible fracture or lytic process seen. Sacrum/coccyx: There is no visible fracture or lytic process. The soft tissues are normal. XR/XR sacrum coccyx min 2V IMPRESSION: Bilateral sacroiliitis. There is no visible acute fracture involving the sacrum or coccyx. The soft tissues are normal..
== END 2022-02-26 11:39 | disposition home or self-care (01) ==
LOC: HO.XRAY 11:38
PROVIDERS: PCP Physician Assistant; Visit Provider Nurse Practitioner Family
DX: M53.3 Sacrococcygeal disorders, not elsewhere classified (principal)
CPT/HCPCS: 72202; 72220

== ENCOUNTER 2022-05-07 06:09 | Outpatient (REF) | payer BC, SELFPAY ==
--- NOTE | ~2022-05-07 | FL_ITS ---
EXAMINATION: XR FLUOROSCOPY WITH IMAGES CLINICAL INFORMATION: Sacroiliac joint injections COMPARISON: February 26, 2022 TECHNIQUE: Fluoroscopy performed by Dr. Dakotah Ramirez. Fluoroscopy time: 0.5 minutes. Cumulative Dose: 7.58 mGy. DAP: 2.06 Gy-cm2. Images: 2. FINDINGS: [place] and contrast seen in the location of both left and right sacroiliac joints. FL/FL guidance in treatment room IMPRESSION: Fluoroscopy provided for pain management procedure.
== END 2022-05-07 06:10 | disposition home or self-care (01) ==
LOC: HO.RADIR 06:09
PROVIDERS: Visit Provider Anesthesiology
DX: M53.3 Sacrococcygeal disorders, not elsewhere classified (principal); M62.838 Other muscle spasm; M79.7 Fibromyalgia; M54.12 Radiculopathy, cervical region; M25.552 Pain in left hip
CPT/HCPCS: 27096; J3300

== ENCOUNTER 2022-05-08 10:00 | Outpatient (RCR) | payer BC, SELFPAY ==
[2022-05-01 09:09] VITALS: BP 135/67; PULSE 68; O2SAT 100
--- NOTE | 2022-05-01 11:39 | MHC.PT.EP ---
[facility] [place] Office [place] Office [place] Office [address] Tiny Gallo [address] [phone] F: [phone] F: [phone] F: [phone] F: [phone] Physical Therapy Plan of Care Date of Evaluation: Date of Surgery: Diagnosis: RADICULOPATHY, CERVICAL REGION Assessment: 56 YO FEMALE REF TO PT FOR CERVICAL PAIN W RADICULOPATHY EXACERBATED 02/17/22. 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 Pt HAS OTHER PMH INCLUDING BREAST CA W POLY MASTECTOMIES 9 YRS AGO, FIBROMYALGIA, ARTHRITIS, AND LEFT HIP/ SI Jt PAIN. OBJECTIVE FINDINGS: (+) LUMBOPELVIS ASYM, DECR POSTURAL AWARENESS, POST RC/ SCAP WEAKNESS, TIGHT ANT CHEST/ TISSUES, DECR CERV AROM, AND INTERM PAIN W RADIC SXS INTO HER Lt > Rt HAND. FUNCTIONALLY, Pt HAS DIFFIC W PAINTING, LOOKING UPWARDS, CHEWING, AND LIFTING OBJECTS. Pt WOULD BENEFIT FROM PT TO ADDRESS SOFT TISSUE IRRIT/ TIGHTNESS, POSTERIOR WEAKNESS, OVERALL POSTURE/ BODY MECH TO REDUCE CERV STRESS W ADLS/ WORK TASKS. Frequency and Duration: The patient will be seen 1 x WK (Pt REQUEST) x 6 WKS Short Term Goals: *Pt INDEP SELF CORRECT POSTURE *Pt'S CERV PAIN DECR TO 2-3/10 AND RADICULAR SXS DECR BY 75% *Pt DEMON IMPROVED CERV AROM W DECR UT COMPEN Usp Goals: *Pt INDEP W PROGR HEP AND SELF-SX MGMT STRATEGIES FOR CERV REGION IN 6 WKS Pt RESUME REG ADLs/ WORK TASKS EVIDENT IN IMPROVED NPDI BY 5-8 POINTS ( AT EVAL 18/50 ) IN 6 WKS *Pt DEMON IMPROVED POST RC/ SCAP STRENGTH AND STAB W SIMUL ADLs IN 6 WKS Treatment Plan: Modalities to reduce pain, spasms and effusion. Manual therapy to restore motion and function. Therapeutic exercise to improve strength and flexibility. Neuromuscular re-education for posture and balance. Therapeutic activities to return to functional activities of daily living. Electronically signed by: Nuvia Maddox,PT Please sign and return to therapist. Thank you for your referral.
--- NOTE | 2022-07-15 14:53 | MHC.PT.DC ---
[facility] [place] Office [place] Office [place] Office [address] Tiny Gallo [address] [phone] F: [phone] F: [phone] F: [phone] F: [phone] Physical Therapy Discharge Report Diagnosis: RADICULOPATHY, CERVICAL REGION Date of Surgery: Date of Evaluation: 05/01/22 Date of Discharge: 07/15/22 Treatments to Date: 2 Cancellations to Date: 5 No Shows to Date: Discharge Status: Patient Elected to Stop Discharge Summary: Pt DID PROGRESS WITH BRIEF PT, AT HER LAST ATTENDED SESSION HER RADICULAR SXS HAD CENTRALIZED ANDPt WAS INDEP W HEP AND IMPROVED W POSTURAL CORRECTION- SHE DID NOT MEET HER PT GOALS DUE TO DECR ATTENDANCE. Electronically signed by: LILA DARLING,Pt Please sign and return to therapist. Thank you for your referral.
== END 2022-07-15 14:51 | disposition home or self-care (01) ==
LOC: HO.PT 10:00
PROVIDERS: PCP Physician Assistant; Visit Provider Nurse Practitioner Family
DX: M54.12 Radiculopathy, cervical region (principal); M62.838 Other muscle spasm
CPT/HCPCS: 97110; 97140; 97162

== ENCOUNTER 2022-06-28 15:13 | Outpatient (REF) | payer BC, SELFPAY ==
[2022-06-28 15:25] LABS: MANUAL DIFF FLAG NO
[2022-06-28 15:35] LABS: Basophils Percent Auto 0.6 % (0-2); Eosinophils Absolute Auto 0.1 X10*3/uL (0.0-0.4); Hematocrit 34.9 % (37.0-47.0); Imm Gran Abs Auto 0.03 X10*3/uL (0.00-0.03); Imm Gran Pct Auto 0.6 % (0.0-0.4); Lymphocytes Absolute Auto 1.3 X10*3/uL (1.2-4.9); Lymphocytes Percent Auto 23.9 % (20-40); Mean Corpuscular HGB Conc 34.4 g/dl (31.0-35.0); Mean Corpuscular Hemoglobin 31.1 pg (27.0-33.0); Mean Corpuscular Volume 90.4 fL (80.0-98.0); Mean Platelet Volume 8.7 fL (9.4-12.3); Monocytes Absolute Auto 0.3 X10*3/uL (0.1-1.2); Monocytes Percent Auto 5.4 % (2-11); Neutrophils Absolute Auto 3.7 x10*3/uL (2.0-8.3); Neutrophils Percent Auto 67.5 % (45-73); Platelet Count 234 X10*3/uL (160-400); Red Blood Count 3.86 X10*6/uL (4.20-5.50); White Blood Count 5.4 X10*3/uL (4.8-10.8)
[2022-06-28 15:40] LABS: Prothrombin Time 11.3 SEC (10.0-13.1)
[2022-06-28 16:02] LABS: Alanine Aminotransferase 28 U/L (0-31); Albumin Level 4.3 g/dL (3.5-5.0); Alkaline Phosphatase 68 U/L (39-117); Anion Gap 14 (12-20); Aspartate Amino Transferase 23 U/L (5-31); Bilirubin Total 0.2 mg/dL (0.0-1.0); Blood Urea Nitrogen 17 mg/dL (9-16); Calcium 9.5 mg/dL (8.4-10.2); Carbon Dioxide 29 mmol/L (22-29); Chloride 101 mmol/L (96-108); Estimated Glomerular Filt Rate > 60; Glucose Random 101 mg/dL (60-115); Potassium 3.9 mmol/L (3.3-5.1); Sodium 140 mmol/L (135-145); Total Protein 6.6 g/dL (6.5-8.0)
[2022-06-28 16:24] LABS: Erythrocyte Sedimentation Rate 14 MM/HR (0-20)
== END 2022-06-28 15:14 | disposition home or self-care (01) ==
LOC: HO.LAB 15:13
PROVIDERS: PCP Physician Assistant; Visit Provider Nurse Practitioner Family
DX: R58 Hemorrhage, not elsewhere classified (principal)
CPT/HCPCS: 36415; 80053; 85025; 85610; 85652

== ENCOUNTER 2022-08-02 09:06 | Day surgery (SDC) | payer BC, SELFPAY ==
--- NOTE | 2022-08-01 12:33 | P.CONAN_ITS ---
Documented by User: Clarisa Bliss NP 08/01/22 12:36 HPI - Anesthesia Eval Consult details Narrative: 56yo F for Bilateral Diagnostic Sacroiliac Joint Innervation Injection PMFSH Active Problems Active Problems: All Active Problems (Updated 06/28/22 @ 14:54 by ROCÍO Noel) Ecchymosis (Acute) Bilateral sacroiliitis (Acute) Fibromyalgia (Acute) Muscle spasm (Acute) Sacroiliac joint dysfunction (Acute) Trochanteric bursitis, left hip (Acute) Cervical radiculopathy (Acute) Painful arc syndrome of left shoulder (Acute) Left hip pain (Acute) Arthralgia of left acromioclavicular joint (Acute) Polyarthralgia (Acute) VALARIE (generalized anxiety disorder) (Acute) HLD (hyperlipidemia) (Acute) Migraines (Acute) Annual physical exam (Acute) 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 (Acute) Hypothyroid (Acute) Hypertension (Acute) Past Medical History Medical History Arthritis Breast cancer Costochondritis Hypertension Hypothyroid Surgical History Surgical History H/O bilateral mastectomy Social History Social History Housing: House Alcohol intake: never Patient Tobacco Use Status: Never used Tobacco e-Cigarette/Vaping Use: Never Used Second Hand Smoke Exposure: No Use of substances other than those prescribed or required for medical reasons: No Are you DNR?: No Advance Directives: No Advance Directives Information Provided: Yes Advance Directives on File: No service: No Current occupational status: employed Current occupation: [employer] Cognitive needs: No Hearing needs: No Vision needs: Yes (glasses) Meds Allergies Allergy/AdvReac Type Severity Reaction Status Date / Time codeine [CODEINE] Allergy Intermediate VOMIT Verified 07/22/22 13:10 Exam Exam Date and Time: August 01, 2022 1233 Pertinent Lab Results Pertinent Lab Results: Laboratory Tests 06/28/22 06/28/22 15:24 15:24 WBC 5.4 Hgb 12.0 Hct 34.9 L Plt Count 234 Sodium 140 Potassium 3.9 Chloride 101 Carbon Dioxide 29 BUN 17 H Creatinine 0.86 Narrative Narrative: EKG 02/2022 Vent. Rate : 065 BPM ? ? Atrial Rate : 065 BPM ?? P-R Int : 134 ms? QRS Dur : 094 ms ? ? QT Int : 404 ms ? ? ? P-R-T Axes : 070 019 051 degrees ?? QTc Int : 420 ms ? Normal sinus rhythm Incomplete right bundle branch block Borderline ECG When compared with ECG of 14-JAN-2022 11:01, No significant change was found ? Assessment and Plan Assessment Anesthesia Assessment: Chart Reviewed Documented by User: Gwyn Simpson MD 08/02/22 10:08 [facility] Past Medical History Medical History Arthritis Breast cancer Costochondritis Hypertension Hypothyroid Family History Family history of problems with anesthesia: No Surgical History Surgical History H/O bilateral mastectomy History of Problems with Anesthesia: No Social History Social History Housing: House Alcohol intake: never Patient Tobacco Use Status: Never used Tobacco e-Cigarette/Vaping Use: Never Used Second Hand Smoke Exposure: No Use of substances other than those prescribed or required for medical reasons: No Are you DNR?: No Advance Directives: No Advance Directives Information Provided: Yes Advance Directives on File: No service: No Current occupational status: employed Current occupation: [employer] Cognitive needs: No Hearing needs: No Vision needs: Yes (glasses) Meds Allergies Allergy/AdvReac Type Severity Reaction Status Date / Time codeine [CODEINE] Allergy Intermediate VOMIT Verified 07/22/22 13:10 Exam Airway Mallampati Class: II TM Dist: >3cm Neck ROM: Full Loose/Missing/Broken Teeth: No Heart: rrr Lungs: clear Assessment and Plan Final Anesthetic Review Family History of Problems with Anesthesia: No History of Problems with Anesthesia: No NPO: Yes ASA Class: II Final Preanesthetic Review: No Changes in Pt Med Stat, Meds/Allgs Chart Reviewed, Consent Obtained/Reviewed and Anes Risks/Benef Reviewed Patient Risk: Intermediate Procedure Risk: Low Anesthetic Plan Anesthetic Plan: MAC: Disposition: Standard PACU
--- NOTE | ~2022-08-02 | FL_ITS ---
EXAMINATION: XR FLUOROSCOPY WITH IMAGES CLINICAL INFORMATION: Diagnostic sacroiliac injections. COMPARISON: Radiographs SI joints 02/26/2022 TECHNIQUE: Fluoroscopy Supervised By: Dr. Dakotah Ramirez. Fluoroscopy Time: 0.8 minutes. Cumulative Dose: 1.11 mGy. DAP: 3.04 Gycm2. Images: 8. FINDINGS: There are spinal needles overlying the upper to mid right and left sacral wings in variable positions. Some images showing contrast without vascular communication. There are degenerative changes both SI joints. FL/FL guidance in OR IMPRESSION: Fluoroscopy for pain management procedure.
[2022-08-02 09:23] VITALS: BMI 29.5
[2022-08-02 09:35] VITALS: BP 120/66; PULSE 72; RESP 16; TEMP 36.7; O2SAT 98
[2022-08-02] MEDS: Lactated Ringers 1,000 ML 100 ML IVCONT (09:41)
--- NOTE | 2022-08-02 09:49 | P.HPSUR_ITS ---
Pre-Procedural Eval Section A Date of Service: 08/02/22 The patient is an INPATIENT: No Changes since office visit: Yes Patient answered all questions The History & Physical has been completed within 30 days and I have reviewed it.: No Section B Chief Complaint: Sacrococcygeal disorders, not elsewhere classified Details of Present Illness: as above Relevant Family History (Specify if Yes): No Relevant Social History: None Present Medications: see Short Stay Collaborative assessment Medical History: No relevant PMH History of Previous Operations: No relevant previous surgery Allergies: Allergies Allergy/AdvReac Type Severity Reaction Status Date / Time codeine [CODEINE] Allergy Intermediate VOMIT Verified 07/22/22 13:10 Review of Systems Sugical H&P ROS: Negative: Constitution, Cardiovascular, Respiratory, Neurological, Psychiatric, Hem-Onc, Allergic/Immunologic, Gastrointestinal, Genitourinary, Musculoskeletal, Integumentary, Endocrine and Eyes/Ears/N ose/Throat Exam Surgical H&P Exam: Normal: HEENT, Normal: Heart, Normal: Lungs, Normal: Extremities, Normal: Abdomen, Normal: Skin and Normal: Neurological Plan Diagnosis/Plan: Unchanged I have reviewed the history and physical and performed a pertinent physical examination on my patient. No changes have occurred unless specified.
--- NOTE | 2022-08-02 10:03 | W.PM.OPN ---
Operative Note Operative Note Date of Service: 08/02/22 Narrative: Sacroiliac joint innervation injection bilateral Informed consent was explained thoroughly to the patient.? All questions about benefits and risks for the procedure were answered. Patient came to the operating room she was positioned prone on the operating table with the pillow under her pelvis.? ASA monitor were applied and the patient was deeply sedated. ? Her lower back and buttocks was prepped with ChloraPrep prepped and draped with sterile towels.? Sterilely draped C-arm was brought over the operating field and sq picture of patient's pelvis was demonstrated on the screen.?Attention was first concentrated on the left side. The point of interests were delineated 1st:? Point A? : Left S1 superior articular process at it's connection with sacral alae.? The point B?was determined as the lowest point of the sacroiliac joint on sacral side of the joint on the left? The rest of the point of interests were determined as the line between the point A and the point B . ? The needles between point A and POINT B were planned to insert in the straight line in palisade fashion.? The skin in the projection of the points of interest were injected with small amount of local lidocaine 2%, after that 22 gauge 3-1/2 inch needles were driven to the point of interest in tunnel vision fashion. ? When needles gently contacted the bone- the each point of interest small amount of ropivacaine 0.5% less than 1 cc was injected into each needle. After completion of the injection on the left side the procedure was repeated on the right in mirroring fashion. total dose of local anesthetic was 28 ml . Upon completion of the injections the needles were removed sterile dressing was applied.? The patient tolerated procedure well.? She went outside of the operating room to PACU where she recovered uneventfully.?
--- NOTE | 2022-08-02 10:06 | P.BOP_ITS ---
Brief Operative Note Date of Service: 08/02/22 Pre-op diagnosis: sacroiliitis, sacroiliac joint pain Post-op diagnosis: same Procedure: bilateral sacroiliac joint innervation injection Implants: none permanent Surgeon: Dakotah Ramirez MD Anesthesia: MAC Was an Automatic Maintainer used for this Procedure?: No Estimated blood loss (mL): 3 Condition: stable Disposition: PACU
[2022-08-02 10:52] VITALS: BP 108/62; PULSE 71; RESP 18; TEMP 36.8; O2SAT 96
[2022-08-02 11:07] VITALS: BP 122/58; PULSE 62; RESP 18; TEMP 36.7; O2SAT 100
== END 2022-08-02 11:50 | disposition home or self-care (01) ==
PROVIDERS: PCP Physician Assistant; Visit Provider Anesthesiology
PROC: (CPT 64450; principal; 2022-08-02 10:50)
DX: M53.3 Sacrococcygeal disorders, not elsewhere classified (principal); M46.1 Sacroiliitis, not elsewhere classified; G89.29 Other chronic pain; M62.838 Other muscle spasm; M47.22 Other spondylosis with radiculopathy, cervical region; M54.2 Cervicalgia; M25.552 Pain in left hip; M25.572 Pain in left ankle and joints of left foot; M79.662 Pain in left lower leg; M79.652 Pain in left thigh; M25.512 Pain in left shoulder; M25.511 Pain in right shoulder; M79.642 Pain in left hand; M79.641 Pain in right hand; M79.7 Fibromyalgia; Z79.899 Other long term (current) drug therapy; Z88.8 Allergy status to other drugs, medicaments and biological substances
CPT/HCPCS: 64450; J2250; J2795; Q9965

== ENCOUNTER 2022-08-23 07:20 | Day surgery (SDC) | payer BC, SELFPAY ==
[2022-08-19 11:35] VITALS: BMI 29.5
--- NOTE | 2022-08-22 09:35 | HO.ANESPROP2 ---
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 (Acute) Fibromyalgia (Acute) Arthralgia of left acromioclavicular joint (Acute) Left hip pain (Acute) Painful arc syndrome of left shoulder (Acute) Cervical radiculopathy (Acute) Trochanteric bursitis, left hip (Acute) Sacroiliac joint dysfunction (Acute) Muscle spasm (Acute) Bilateral sacroiliitis (Acute) Ecchymosis (Acute) Lumbar back pain with radiculopathy affecting lower extremity (Acute) Urine incontinence (Acute) Hypothyroid (Acute) Hypertension (Acute) Past Medical History Medical History (Updated 08/19/22 @ 11:24 by Sunitha Nieto RN) Arthritis Breast cancer Costochondritis Hypertension Hypothyroid Migraine headache Family History Family history of problems with anesthesia: No Surgical History Surgical History H/O bilateral mastectomy History of Problems with Anesthesia: No Social History Social History Housing: House Alcohol intake: never Patient Tobacco Use Status: Never used Tobacco e-Cigarette/Vaping Use: Never Used Second Hand Smoke Exposure: No Use of substances other than those prescribed or required for medical reasons: No Are you DNR?: No Advance Directives: No Advance Directives Information Provided: Yes service: No Current occupational status: employed Current occupation: [employer] Cognitive needs: No Hearing needs: No Vision needs: Yes (glasses) Meds Allergies Allergy/AdvReac Type Severity Reaction Status Date / Time codeine [CODEINE] Allergy Intermediate VOMIT Verified 08/19/22 11:23 Exam Exam Date and Time: August 22, 2022 0935 Height,Weight and Vital Signs: Height 4 ft 11 in Weight 66.224 kg Pertinent Lab Results Pertinent Lab Results: Laboratory Tests 06/28/22 06/28/22 15:24 15:24 WBC 5.4 Hgb 12.0 Hct 34.9 L Plt Count 234 Sodium 140 Potassium 3.9 Chloride 101 Carbon Dioxide 29 BUN 17 H Creatinine 0.86 Narrative Narrative: EKG 02/2022 Vent. Rate : 065 BPM ? ? Atrial Rate : 065 BPM ?? P-R Int : 134 ms? QRS Dur : 094 ms ? ? QT Int : 404 ms ? ? ? P-R-T Axes : 070 019 051 degrees ?? QTc Int : 420 ms ? Normal sinus rhythm Incomplete right bundle branch block Borderline ECG When compared with ECG of 14-JAN-2022 11:01, No significant change was found Assessment and Plan Assessment Anesthesia Assessment: Chart Reviewed Final Anesthetic Review Family History of Problems with Anesthesia: No History of Problems with Anesthesia: No Documented by User: Ramila Forman MD 08/23/22 08:15 [facility] Past Medical History Medical History (Updated 08/19/22 @ 11:24 by Sunitha Nieto RN) Arthritis Breast cancer Costochondritis Hypertension Hypothyroid Migraine headache Surgical History Surgical History H/O bilateral mastectomy Social History Social History Housing: House Alcohol intake: never Patient Tobacco Use Status: Never used Tobacco e-Cigarette/Vaping Use: Never Used Second Hand Smoke Exposure: No Use of substances other than those prescribed or required for medical reasons: No Are you DNR?: No Advance Directives: No Advance Directives Information Provided: Yes service: No Current occupational status: employed Current occupation: [employer] Cognitive needs: No Hearing needs: No Vision needs: Yes (glasses) Meds Allergies Allergy/AdvReac Type Severity Reaction Status Date / Time codeine [CODEINE] Allergy Intermediate VOMIT Verified 08/19/22 11:23 Exam Airway Mallampati Class: II TM Dist: >3cm Neck ROM: Full Heart: rrr Lungs: cta Assessment and Plan Assessment Anesthesia Assessment: Anesthesia Plan Discussed Final Anesthetic Review NPO: Yes ASA Class: II Final Preanesthetic Review: No Changes in Pt Med Stat, Meds/Allgs Chart Reviewed and Consent Obtained/Reviewed Patient Risk: Intermediate Procedure Risk: Intermediate Anesthetic Plan Anesthetic Plan: MAC: Disposition: Standard PACU
--- NOTE | ~2022-08-23 | FL_ITS ---
EXAMINATION: XR FLUOROSCOPY WITH IMAGES CLINICAL INFORMATION: Sacral coccygeal disorder. Right SI joint RFA. Pain management. COMPARISON: Sacrum and coccyx 02/26/2022. TECHNIQUE: Fluoroscopy Supervised By: Dr. Dakotah Ramirez. Fluoroscopy Time: 0.3 minutes. Cumulative Dose: 4.73 mGy. DAP: 1.28 Gycm2. Images: 4. FINDINGS: There are 4 needle/electrodes overlying the right sacral wing. The 4 needles are seen in 2 separate positions, treating 2 areas. There is sacroiliitis again seen with subchondral sclerosis and mild joint narrowing. FL/FL guidance in OR IMPRESSION: Fluoroscopy for pain management procedure.
[2022-08-23 07:42] VITALS: BMI 29.5
[2022-08-23] MEDS: Lactated Ringers 1,000 ML 100 ML IVCONT (07:57)
[2022-08-23 07:58] VITALS: BP 110/60; PULSE 76; RESP 18; TEMP 36.1; O2SAT 97; BMI 29.5
--- NOTE | 2022-08-23 09:33 | MHC.SHP ---
Pre-Procedural Eval Section A Date of Service: 08/23/22 The patient is an INPATIENT: No Changes since office visit: Yes Patient answered all questions The History & Physical has been completed within 30 days and I have reviewed it.: No Section B Chief Complaint: Sacroiliitis,sacrococcygeal disorders Details of Present Illness: sacroiliitis, SI joint pain Relevant Family History (Specify if Yes): No Relevant Social History: None Present Medications: None Medical History: No relevant PMH History of Previous Operations: No relevant previous surgery Allergies: Allergies Allergy/AdvReac Type Severity Reaction Status Date / Time codeine [CODEINE] Allergy Intermediate VOMIT Verified 08/19/22 11:23 Review of Systems Sugical H&P ROS: Negative: Constitution, Cardiovascular, Respiratory, Neurological, Psychiatric, Hem-Onc, Allergic/Immunologic, Gastrointestinal, Genitourinary, Musculoskeletal, Integumentary, Endocrine and Eyes/Ears/Nose/Throat Exam Surgical H&P Exam: Normal: HEENT, Normal: Heart, Normal: Lungs, Normal: Extremities, Normal: Abdomen, Normal: Skin and Normal: Neurological Plan Diagnosis/Plan: Unchanged I have reviewed the history and physical and performed a pertinent physical examination on my patient. No changes have occurred unless specified.
--- NOTE | 2022-08-23 09:34 | PM.OP ---
Brief Operative Note Date of Service: 08/23/22 Pre-op diagnosis: Right sacroiliac joint pain, Post-op diagnosis: same Procedure: right sacroiliac joint innervation radiofrequensy ablation. Surgeon: Dakotah Ramirez MD Anesthesia: MAC Was an Water Plant Pump Operator Supervisor used for this Procedure?: No Estimated blood loss (mL): 3.5 Condition: stable Disposition: PACU
[2022-08-23 09:35] VITALS: BP 119/66; PULSE 68; RESP 16; TEMP 36.5; O2SAT 95
--- NOTE | 2022-08-23 09:36 | W.PM.OPN ---
Operative Note Operative Note Date of Service: 08/23/22 Narrative: Valerie Nino pleasant 56 years old female who is suffering from right sacroiliac joint pain. She came today to the operating room for sacroiliac joint innervation radiofrequency ablation. The patient was brought to the operating room and positioned prone on operating table. [place] [employer] monitors were applied and patient was moderately to deeply sedated. Time-out was performed delineating correct site and side of the procedure name and date of of the patient allergies needs for antibiotic prophylaxis. Her lower back and upper buttocks were prepped with ChloraPrep and draped with sterile utility towels. C-arm was brought over the operating field and square picture of the patient's pelvis was demonstrated on the screen, point of interest were delineated as confluence of the superior articular process of S1 with sacral ala as well as medial side of the lowest point of the sacroiliac joint as well as all points in between 1 cm apart in palisade fashion. The projections of the point interest to the skin was injected with small amount of lidocaine2% mixed with ropivacaine0.5% 1-1.After that 100 mm RFA cannullas were inserted through the skin and advanced to the points of the interests in tunnel vision fashion. When the cannullas contacted gently the bones the stylettes were removed and nitinol testing probes were inserted. the motor stimulation was performed on all the needle . There was no muscular response om 2 mA stimulation. After that the canullas were injected with small amount of lidocaine 2% mixed with ropivacaine 0.5% 1:1 with added trace amount of kenalog.The nitinol electrodes were reinserted and after 60 seconds waiting energy was applied at 89C for 90 seconds. The canulas were rotated each 180 degrees and energy application was repeated at the same setting once more. After that the cannullas were removed and bandaid was applied. The patient tolerated procedure well was awaken and taken to recovery room where recovered uneventfully.
[2022-08-23 09:50] VITALS: BP 112/59; PULSE 57; RESP 16; O2SAT 96
[2022-08-23] MEDS: Acetaminophen 325 MG TABLET 650 MG PO (10:04)
[2022-08-23 10:05] VITALS: BP 117/51; PULSE 59; RESP 16; O2SAT 100
[2022-08-23 10:19] VITALS: BP 128/66; PULSE 59; RESP 16; TEMP 36.6; O2SAT 100
== END 2022-08-23 10:51 | disposition home or self-care (01) ==
PROVIDERS: PCP Physician Assistant; Visit Provider Anesthesiology
PROC: (CPT 64635; principal; 2022-08-23 09:00)
DX: M46.1 Sacroiliitis, not elsewhere classified (principal); M53.3 Sacrococcygeal disorders, not elsewhere classified; I10 Essential (primary) hypertension; Z88.6 Allergy status to analgesic agent
CPT/HCPCS: 64625; J1885; J2250; J2405; J2795; J3010; J3301

== ENCOUNTER 2022-09-06 06:15 | Day surgery (SDC) | payer BC, SELFPAY ==
[2022-09-03 10:48] VITALS: BMI 29.5
--- NOTE | ~2022-09-06 | FL_ITS ---
EXAMINATION: XR FLUOROSCOPY WITH IMAGES CLINICAL INFORMATION: Left SI joint pain. COMPARISON: None. TECHNIQUE: Fluoroscopy Supervised By: Dr. Dakotah Ramirez. Fluoroscopy Time: 0.6 minutes. Cumulative Dose: 20.0 mGy. DAP: 5.45 Gycm2. Images: 2. FINDINGS: 2 images obtained in OR reveal 5 needles positioned posterior to left inferior sacrum close to SI joint for radiofrequency ablation. Visualized bones are grossly unremarkable. FL/FL guidance in OR IMPRESSION: Fluoroscopy was provided to referring physician for radiofrequency ablation.
[2022-09-06 06:40] VITALS: BP 119/64; PULSE 65; RESP 15; TEMP 36.8; O2SAT 98
--- NOTE | 2022-09-06 08:05 | MHC.SHP ---
Pre-Procedural Eval Section A Date of Service: 09/06/22 Section B Chief Complaint: Sacrococcygeal disorders,sacroiliitis, Details of Present Illness: as ab ove Relevant Family History (Specify if Yes): No Relevant Social History: None Present Medications: see Short Stay Collaborative assessment Medical History: No relevant PMH History of Previous Operations: No relevant previous surgery Allergies: Allergies Allergy/AdvReac Type Severity Reaction Status Date / Time codeine [CODEINE] Allergy Intermediate VOMIT Verified 09/06/22 06:45 Review of Systems Sugical H&P ROS: Negative: Constitution, Cardiovascular, Respiratory, Neurological, Psychiatric, Hem-Onc, Allergic/Immunologic, Gastrointestinal, Genitourinary, Musculoskeletal, Integumentary, Endocrine and Eyes/Ears/Nose/Throat Exam Surgical H&P Exam: Normal: HEENT, Normal: Heart, Normal: Lungs, Normal: Extremities, Normal: Abdomen, Normal: Skin and Normal: Neurological Plan Diagnosis/Plan: Unchanged I have reviewed the history and physical and performed a pertinent physical examination on my patient. No changes have occurred unless specified. Time Spent With Patient Time: Total time managing care of this patient today _5___ minutes.
[2022-09-06] MEDS: Lactated Ringers 1,000 ML 100 ML IVCONT (08:16)
[2022-09-06 09:10] VITALS: BP 100/54; PULSE 69; RESP 16; TEMP 36.6; O2SAT 97
--- NOTE | 2022-09-06 09:21 | W.PM.OPN ---
Operative Note Operative Note Date of Service: 09/06/22 Narrative: Valerie is pleasant 56 years old female who is suffering from right sacroiliac joint pain. She came today to the operating room for sacroiliac joint innervation radiofrequency ablation on the left. The patient was brought to the operating room and positioned prone on operating table. [place] [employer] monitors were applied and patient was moderately to deeply sedated. Time-out was performed delineating correct site and side of the procedure name and date of of the patient allergies needs for antibiotic prophylaxis. Her lower back and upper buttocks were prepped with ChloraPrep and draped with sterile utility towels. C-arm was brought over the operating field and square picture of the patient's pelvis was demonstrated on the screen, point of interest were delineated as confluence of the superior articular process of S1 with sacral ala on the left as well as medial side of the lowest point of the sacroiliac joint as well as all points in between 1 cm apart in palisade fashion. The projections of the point interest to the skin was injected with small amount of lidocaine2% mixed with ropivacaine0.5% 1-1.After that 100 mm RFA cannullas were inserted through the skin and advanced to the points of the interests in tunnel vision fashion. When the cannullas contacted gently the bones the stylettes were removed and nitinol testing probes were inserted. the motor stimulation was performed on all the needle . There was no muscular response om 2 mA stimulation. After that the canullas were injected with small amount of lidocaine 2% mixed with ropivacaine 0.5% 1:1 with added trace amount of kenalog.The nitinol electrodes were reinserted and after 90 seconds waiting energy was applied at 89C for 90 seconds. The canulas were rotated each 180 degrees and energy application was repeated at the same setting once more. After that the cannullas were removed and bandaids were applied. The patient tolerated procedure well was awaken and taken to recovery room where recovered uneventfully.
--- NOTE | 2022-09-06 09:23 | PM.OP ---
Brief Operative Note Date of Service: 09/06/22 Pre-op diagnosis: sacroiliitis, SI joint pain left. Post-op diagnosis: same Procedure: Left SI joint innervation RFA Surgeon: Dakotah Ramirez MD Anesthesia: MAC Was an Cottonseed Meat Presser used for this Procedure?: No Estimated blood loss (mL): 0 Condition: stable Disposition: PACU
[2022-09-06 09:25] VITALS: BP 91/45; PULSE 63; RESP 16; O2SAT 97
[2022-09-06 09:40] VITALS: BP 133/64; PULSE 67; RESP 16; TEMP 36.3; O2SAT 100
== END 2022-09-06 10:15 | disposition home or self-care (01) ==
PROVIDERS: PCP Physician Assistant; Visit Provider Anesthesiology
PROC: (CPT 64635; principal; 2022-09-06 08:10)
DX: M46.1 Sacroiliitis, not elsewhere classified (principal); M53.3 Sacrococcygeal disorders, not elsewhere classified; M94.0 Chondrocostal junction syndrome [Tietze]; I10 Essential (primary) hypertension; Z79.899 Other long term (current) drug therapy; Z88.0 Allergy status to penicillin; Z85.3 Personal history of malignant neoplasm of breast; Z90.13 Acquired absence of bilateral breasts and nipples
CPT/HCPCS: 64625; J2795; J3301

== ENCOUNTER 2022-09-11 08:38 | Outpatient (REF) | payer BC, SELFPAY ==
--- NOTE | ~2022-09-11 | MR_ITS ---
MR LUMBAR SPINE WITHOUT CONTRAST CLINICAL INFORMATION: Lumbar region radiculopathy. COMPARISON: None available. TECHNIQUE: MRI of the lumbar spine was obtained using routine sequences without contrast. FINDINGS: There are 5 nonrib-bearing lumbar-type vertebral bodies. Lumbar alignment is normal. The vertebral body heights are maintained. There is no bone marrow edema within the lumbar spine. The vertebral body heights are maintained. Disc lines are preserved and the disc remain well-hydrated. There are no acute fractures. Partially imaged T2 signal changes within the soft tissues just dorsal to the left sacrum extending beyond the field of view of this exam, possibly related to the recent left SI joint injection performed on 09/06/2022 which can be clinically correlated. There is significant hypertrophic degenerative changes across the right SI joint. Conus terminates at the L1 level. At T10-T11, facet arthropathy and ligamentum flavum thickening indent the left dorsal thecal sac and likely slightly flatten the left dorsal cord at the uppermost aspects of this study. The L1-L2, L2-L3, and L3-L4 disc contours are normal. No central canal stenosis and no foraminal stenosis at these levels. L4-L5: Small annular disc bulge and moderate bilateral facet arthropathy and ligamentum flavum thickening resulting in narrowing of the left subarticular zone and probable mild mass effect on the traversing left L5 nerve root. There is mild foraminal encroachment bilaterally without exiting nerve root compression. No central canal stenosis. L5-S1: Small annular disc bulge and moderate left facet arthropathy. No central canal stenosis and no foraminal stenosis. MR/MR lumbar spine wo con IMPRESSION: - Partially imaged T2 signal changes within the soft tissues just dorsal to the left sacrum extending beyond the field of view of this exam, possibly related to the recent left SI joint injection performed on 09/06/2022 which can be clinically correlated. There is significant hypertrophic degenerative changes across the right SI joint. - At L4-L5, spondylitic changes result in left subarticular zone stenosis and probable mild mass effect on the traversing left L5 nerve root. There is moderate facet arthropathy bilaterally at this level. - At T10-T11, facet arthropathy and ligamentum flavum thickening indent the left dorsal thecal sac and likely slightly flatten the left dorsal cord at the uppermost aspects of this study.
== END 2022-09-11 08:39 | disposition home or self-care (01) ==
LOC: HO.MRI 08:38
PROVIDERS: Visit Provider Nurse Practitioner Family
DX: M54.16 Radiculopathy, lumbar region (principal); M62.838 Other muscle spasm; R32 Unspecified urinary incontinence
CPT/HCPCS: 72148

== ENCOUNTER 2022-09-11 12:07 | Emergency (ER) | payer BC, SELFPAY ==
--- NOTE | ~2022-09-11 | XR_ITS ---
EXAMINATION: XR ANKLE, RIGHT CLINICAL INFORMATION: Inability to bear weight COMPARISON: None TECHNIQUE: AP, lateral, and mortise views of the right ankle. FINDINGS: No fracture. Alignment is anatomic. Joint spaces are maintained. No joint effusion. Calcaneal spurs. XR/XR ankle RT min 3V IMPRESSION: Calcaneal spurs. Otherwise unremarkable exam.
[2022-09-11 12:09] VITALS: BP 152/69; PULSE 71; RESP 16; TEMP 36.4; O2SAT 100; BMI 28.8
--- NOTE | 2022-09-11 12:09 | ED.LOWEXIN ---
HPI - Extremity Injury (Lower) General Chief Complaint: Extremity Problem <SANTIAGO Sarmiento - Last Filed: 09/11/22 12:12> Stated Complaint: R Ankle Pain <SANTIAGO Sarmiento - Last Filed: 09/11/22 12:12> Time Seen by Provider: 09/11/22 12:25 <SANTIAGO Sarmiento - Last Filed: 09/11/22 12:12> Source: patient <SANTIAGO Piper - Last Filed: 09/11/22 15:24> Mode of arrival: ambulatory <SANTIAGO Piper - Last Filed: 09/11/22 15:24> Limitations: no limitations <SANTIAGO Piper Last Filed: 09/11/22 15:24> History of Present Illness HPI Narrative: Patient is a 56 year old assigned female at with a history of breast cancer, HTN, and hypothyroidism presenting to the emergency department today with right ankle pain. Patient states that yesterday she heard her right ankle pop and has been having intermittent issues bearing weight on it ever since. Patient denies any dizziness, lightheadedness, abdominal pain, nausea, vomiting, fever, chills, blurry vision, double vision, loss of vision, chest pain, difficulty breathing, shortness of breath, back pain, night sweats, pain with urination, increased urinary frequency, increased urinary urgency, blood in her urine or stool, syncope or a near syncopal episode, recent trauma or falls, bowel incontinence, bladder incontinence, bowel retention, bladder retention, or any other complaints at this time. <SANTIAGO Piper - Last Filed: 09/11/22 15:24> MD complaint: ankle injury <SANTIAGO Piper - Last Filed: 09/11/22 15:24> Onset (ago): day(s) (1) <SANTIAGO Piper Last Filed: 09/11/22 15:24> Place: home <SANTIAGO Piper Last Filed: 09/11/22 15:24> Severity: mild <SANTIAGO Piper Last Filed: 09/11/22 15:24> Severity scale (1-10): 3 <SANTIAGO Piper Last Filed: 09/11/22 15:24> Exacerbating factors: weight bearing <SANTIAGO Piper - Last Filed: 09/11/22 15:24> Associated symptoms: snap/pop sensation and swelling <SANTIAGO Piper - Last Filed: 09/11/22 15:24> Other symptoms: none <SANTIAGO Piper - Last Filed: 09/11/22 15:24> Related Data Home Medications: Previous Rx's Medication Instructions Recorded sumatriptan succinate 25 mg tablet 25 mg PO Q2-4H PRN migraine 06/06/21 headache 30 days #9 tabs lisinopril 10 1 tab PO DAILY #90 tabs 02/07/22 mg-hydrochlorothiazide 12.5 mg tablet tizanidine 4 mg tablet 4 mg PO Q8H PRN muscle spasticity 02/26/22 30 days #90 tabs citalopram 20 mg tablet 20 mg PO DAILY #90 tabs 04/22/22 gabapentin 300 mg capsule 300 mg PO TID for pain 30 days #90 07/08/22 caps levothyroxine 50 mcg tablet 50 mcg PO DAILY #90 tabs 07/18/22 trazodone 50 mg tablet 50 mg PO BEDTIME PRN for insomnia 07/18/22 #90 tabs <SANTIAGO Sarmiento - Last Filed: 09/11/22 12:12> Allergies/Adverse Reactions: Allergies Allergy/AdvReac Type Severity Reaction Status Date / Time codeine [CODEINE] Allergy Intermediate VOMIT Verified 09/11/22 12:11 <SANTIAGO Sarmiento - Last Filed: 09/11/22 12:12> [facility] Past Medical History Medical History: Medical History (Updated 09/11/22 @ 13:45 by SANTIAGO Piper) Arthritis Breast cancer Costochondritis Hypertension Hypothyroid Migraine headache <SANTIAGO Sarmiento - Last Filed: 09/11/22 12:12> Surgical History: Surgical History H/O bilateral mastectomy History of surgery History of surgery <SANTIAGO Sarmiento - Last Filed: 09/11/22 12:12> Social History Social History: Social History Housing: House Alcohol intake: never Patient Tobacco Use Status: Never used Tobacco e-Cigarette/Vaping Use: Never Used Second Hand Smoke Exposure: No Advance Directives: No Advance Directives Information Provided: Yes service: No Current occupational status: employed Current occupation: [employer] Cognitive needs: No Hearing needs: No Vision needs: Yes (glasses) <SANTIAGO Sarmiento - Last Filed: 09/11/22 12:12> Physical Exam Vital Signs: Vital Signs: Last Vital Signs Temp 97.5 F 09/11/22 12:09 Pulse 71 09/11/22 12:09 Resp 16 09/11/22 12:09 BP 152/69 H 09/11/22 12:09 Pulse Ox 100 09/11/22 12:09 O2 Del Method 09/11/22 12:09 BMI result Body Mass Index 28.8 <SANTIAGO Sarmiento - Last Filed: 09/11/22 12:12> Vital Signs: Last Vital Signs Temp 97.5 F 09/11/22 12:09 Pulse 71 09/11/22 12:09 Resp 16 09/11/22 12:09 BP 152/69 H 09/11/22 12:09 Pulse Ox 100 09/11/22 12:09 O2 Del Method 09/11/22 12:09 BMI result Body Mass Index 28.8 <SANTIAGO Piper - Last Filed: 09/11/22 15:24> Const: General: cooperative, no acute distress, alert and awake <SANTIAGO Piper - Last Filed: 09/11/22 15:24> Nutritional Appearance: well nourished <SANTIAGO Piper - Last Filed: 09/11/22 15:24> Orientation/consciousness: patient oriented x3 <SANTIAGO Piper - Last Filed: 09/11/22 15:24> Limitations: no limitations <SANTIAGO Piper Last Filed: 09/11/22 15:24> HEENT: Head: Yes normal to inspection and Yes atraumatic <SANTIAGO Piper - Last Filed: 09/11/22 15:24> Ears: hearing grossly normal bilaterally and external ears normal <SANTIAGO Piper Last Filed: 09/11/22 15:24> General nose exam: Normal external nose present, no nasal discharge noted and no epistaxis <Luly Mariscal [facility] Last Filed: 09/11/22 15:24> Face and sinus: Yes normal facial exam, No abrasion and No laceration <Luly Mariscal [place] - Last Filed: 09/11/22 15:24> Mouth: Normal oral and palatal mucosa present, no drooling and no muffled voice <Luly Mariscal [facility] Last Filed: 09/11/22 15:24> Eyes: General: appearance normal, both eyes and all related structures <Luly Mariscal [facility] Last Filed: 09/11/22 15:24> Periorbital: periorbital findings normal <Luly Mariscal [place] - Last Filed: 09/11/22 15:24> Eyelids: Yes eyelids normal <Luly Mariscal [facility] Last Filed: 09/11/22 15:24> Conjunctivae: conjunctivae normal <Luly Mariscal [place] - Last Filed: 09/11/22 15:24> Pupils: Equal, round and reactive pupils present <Luly Mariscal [place] - Last Filed: 09/11/22 15:24> EOM: EOMs intact bilaterally <Luly Mariscal [facility] Last Filed: 09/11/22 15:24> Neck: Neck: Yes normal visual inspection, Yes full ROM and Yes no lymphadenopathy <Luly Mariscal [facility] Last Filed: 09/11/22 15:24> Chest: Chest palpation & inspection: normal inspection of the chest <Luly Mariscal [facility] Last Filed: 09/11/22 15:24> Resp: Effort & Inspection: normal respiratory effort and able to speak in complete sentences <Luly Mariscal [facility] Last Filed: 09/11/22 15:24> Auscultation: clear to auscultation bilaterally <Luly Mariscal [facility] Last Filed: 09/11/22 15:24> Cardio: Rate: regular rate <Luly Mariscal [place] - Last Filed: 09/11/22 15:24> Rhythm: regular rhythm <Luly Mariscal [place] - Last Filed: 09/11/22 15:24> GI: Inspection: Yes normal to inspection <Luly Mariscal [place] - Last Filed: 09/11/22 15:24> Neuro: General: patient oriented x3 and moves all extremities <Luly MariscalSANTIAGO - Last Filed: 09/11/22 15:24> Cranial nerves: Yes Equal, round and reactive pupils present <Luly Mariscal SANTIAGO - Last Filed: 09/11/22 15:24> Cognition (Neuro): normal cognition <Luly Mariscal SANTIAGO - Last Filed: 09/11/22 15:24> Motor exam (neuro): 5/5 motor strength present throughout <Luly Mariscal SANTIAGO - Last Filed: 09/11/22 15:24> Sensory Exam: Normal double simultaneous stimulation for sensation <Luly MariscalSANTIAGO - Last Filed: 09/11/22 15:24> Coordination: [id number] test normal <Luly Mariscal SANTIAGO - Last Filed: 09/11/22 15:24> Extrem: General: Yes normal to inspection, Yes full ROM and Yes capillary refill normal <Luly MariscalSANTIAGO - Last Filed: 09/11/22 15:24> Psych: Appearance: grossly normal <Luly MariscalSANTIAGO - Last Filed: 09/11/22 15:24> Mental Status: mental status grossly normal <Luly Mariscal SANTIAGO - Last Filed: 09/11/22 15:24> Affect: normal affect <Luly Mariscal SANTIAGO - Last Filed: 09/11/22 15:24> Attitude: cooperative <Luly Mariscal [place] - Last Filed: 09/11/22 15:24> Thought process: Normal thought process present <Luly MariscalSANTIAGO - Last Filed: 09/11/22 15:24> Thought content: Normal thought content present <Luly MariscalSANTIAGO - Last Filed: 09/11/22 15:24> Insight: Good insight present (Psych) <Luly MariscalSANTIAGO - Last Filed: 09/11/22 15:24> Course Course Course Narrative: 12:09 - RME - 56 yo female with hx fibromyalgia, chronic back pain followed by Pain Management, HTN, cervical radiculopathy, anxiety coming in with right ankle pain. Yesterday stood up and heard a pop and was unable to bear weight. Slowly got better and she would walk on it. This recurred a few times and her doctor told her to come here for evaluation. Ambulated into triage room. Reports lateral ankle soreness. Will get XRs. <SANTIAGO Sarmiento - Last Filed: 09/11/22 12:12> Medical Decision Making Medical Decision Making MDM Narrative: Patient is a 56 year old assigned female at with a history of HLD, breast cancer, and hypothyroidism presenting to the emergency department today with right ankle pain. Patient's physical exam was unremarkable. Patient's right ankle x-ray showed no acute process. Patient's clinical presentation is suspicious for a CFL injury. I explained my physical exam findings as well as all test results to the patient. I answered all questions asked by the patient. Patient was placed in a walking boot and given crutches with crutch instructions. I stressed the importance of the patient taking her medication as prescribed. I stressed the importance of the patient following up with her primary care provider and an orthopedic provider. I stressed the importance of the patient returning to the emergency department immediately if her symptoms were to worsen or if she were to develop any dizziness, shortness of breath, difficulty breathing, chest pain, blurry vision, loss of vision, nausea, vomiting, abdominal pain, fever, chills, back pain, or any other complaints. Patient verbalized agreement and understanding with this treatment plan and discharge. <SANTIAGO Piper - Last Filed: 09/11/22 15:24> Differential Diagnosis Differential Diagnoses: The differential diagnosis associated with the presentation includes <SANTIAGO Piper - Last Filed: 09/11/22 15:24> CFL injury, right foot injury, right foot pain <SANTIAGO Piper - Last Filed: 09/11/22 15:24> Radiology Impression Discussion of test interpretation with radiology: I have reviewed the radiologist's reading. <SANTIAGO Piper - Last Filed: 09/11/22 15:24> Radiologist Impression: My interpretation is in agreement with the radiologist's impression of this imaging study. EXAMINATION: XR ANKLE, RIGHT CLINICAL INFORMATION: Inability to bear weight? COMPARISON: None? TECHNIQUE: AP, lateral, and mortise views of the right ankle. FINDINGS: No fracture. Alignment is anatomic. Joint spaces are maintained. No joint effusion. Calcaneal spurs. XR/XR ankle RT min 3V IMPRESSION: Calcaneal spurs. Otherwise unremarkable exam Dictated By: Ranjana Lopez MD Signed By: Electronically signed by Ranjana Lopez MD 09/11/22 1335 <SANTIAGO Piper - Last Filed: 09/11/22 15:24> Procedures Orthopedic Splinting/Casting Injury #1: Side: right <SANTIAGO Piper - Last Filed: 09/11/22 15:24> Lower Extremity Injury Location: ankle <SANTIAGO Piper - Last Filed: 09/11/22 15:24> Lower Extremity Immobilizer: boot orthosis <SANTIAGO Piper - Last Filed: 09/11/22 15:24> Other Orthopedic Equipment: crutches <SANTIAGO Piper - Last Filed: 09/11/22 15:24> Discharge Plan Discharge Clinical Impression: Ankle injury <SANTIAGO Sarmiento - Last Filed: 09/11/22 12:12> Patient Disposition: Home, Self-Care <SANTIAGO Sarmiento - Last Filed: 09/11/22 12:12> Instructions: Crutch Instructions (ED) <SANTIAGO Sarmeinto - Last Filed: 09/11/22 12:12> Additional Instructions: Follow up with your primary care provider and an orthopedic provider. Return to the emergency department immediately if your symptoms worsen or if you develop any dizziness, shortness of breath, difficulty breathing, chest pain, blurry vision, loss of vision, nausea, vomiting, abdominal pain, fever, chills, back pain, or any other complaints. <SANTIAGO Sarmiento - Last Filed: 09/11/22 12:12> Prescriptions: No Action lisinopril-hydrochlorothiazide 10-12.5 mg tablet 1 tab PO DAILY Qty: 90 2RF citalopram 20 mg tablet 20 mg PO DAILY Qty: 90 1RF gabapentin 300 mg capsule 300 mg PO TID 30 Days Qty: 90 1RF trazodone 50 mg tablet 50 mg PO BEDTIME PRN (Reason: for insomnia) Qty: 90 3RF levothyroxine 50 mcg tablet 50 mcg PO DAILY Qty: 90 3RF sumatriptan succinate 25 mg tablet 25 mg PO Q2-4H PRN (Reason: migraine headache) 30 Days Qty: 9 0RF Rx Instructions: do not exceed 8 doses per 24 hrs tizanidine 4 mg tablet 4 mg PO Q8H PRN (Reason: muscle spasticity) 30 Days Qty: 90 0RF Rx Instructions: Start at bedtime as medication can be sedating. <SANTIAGO Sarmiento - Last Filed: 09/11/22 12:12> Referrals: [facility] [place] [facility] [place]Provider Group] Jovanni Jimenez PA-C [Primary Care Provider] - <SANTIAGO Sarmiento - Last Filed: 09/11/22 12:12> Stand Alone Forms: Work/School Release <SANTIAGO Sarmiento - Last Filed: 09/11/22 12:12> Interventions: ED Discharge Assessment Last Done: 09/11/22 14:19 <SANTIAGO Sarmiento - Last Filed: 09/11/22 12:12> Discharge Date/Time: 09/11/22 14:20 <SANTIAGO Sarmiento - Last Filed: 09/11/22 12:12> Print Language: Estonian <SANTIAGO Sarmiento - Last Filed: 09/11/22 12:12>
== END 2022-09-11 14:20 | disposition home or self-care (01) ==
PROVIDERS: Emergency Provider Student in an Organized Health Care Education/Training Program; PCP Physician Assistant
DX: S93.401A Sprain of unspecified ligament of right ankle, initial encounter (principal); X50.1XXA Overexertion from prolonged static or awkward postures, initial encounter; Y93.9 Activity, unspecified; Y92.9 Unspecified place or not applicable; Y99.9 Unspecified external cause status; Z79.899 Other long term (current) drug therapy
CPT/HCPCS: 29515; 73610; 99283; 99284

== ENCOUNTER → 2022-09-23 14:50 | Outpatient (BNVA) | payer BC, SELFPAY | PROVIDERS: PCP Physician Assistant; Visit Provider Anesthesiology | DX: Z13.89 Encounter for screening for other disorder (principal) ==

== ENCOUNTER 2022-09-24 10:09 | Outpatient (REF) | payer BC, SELFPAY ==
--- NOTE | ~2022-09-24 | XR_ITS ---
EXAMINATION: XR HIP, RIGHT CLINICAL INFORMATION: M16.11 - Unilateral primary osteoarthritis, right hip COMPARISON: SI joints 02/26/2022, MR lumbar spine 09/11/2022. TECHNIQUE: Two views of the right hip. FINDINGS: No fracture, dislocation, destructive process. No hip joint narrowing or erosive change or chondrocalcinosis. There are arthritic changes again noted right SI joint. XR/XR hip RT min 2V IMPRESSION: -Unremarkable right hip. -Chronic changes right SI joint similar to prior radiographs 02/26/2022.
== END 2022-09-24 10:10 | disposition home or self-care (01) ==
LOC: HO.XRAY 10:09
PROVIDERS: PCP Physician Assistant; Visit Provider Anesthesiology
DX: M16.11 Unilateral primary osteoarthritis, right hip (principal)
CPT/HCPCS: 73502

== ENCOUNTER → 2022-10-04 10:22 | Outpatient (BNVA) | payer BC, SELFPAY | PROVIDERS: PCP Physician Assistant; Visit Provider Physician Assistant | DX: Z13.89 Encounter for screening for other disorder (principal) ==

== ENCOUNTER → 2022-10-07 13:38 | Outpatient (BNVA) | payer BC, SELFPAY | PROVIDERS: PCP Physician Assistant; Visit Provider Anesthesiology | DX: M46.1 Sacroiliitis, not elsewhere classified (principal); M53.3 Sacrococcygeal disorders, not elsewhere classified; M70.61 Trochanteric bursitis, right hip | CPT/HCPCS: J2795; J3301 ==

== ENCOUNTER 2022-10-22 07:18 | Outpatient (REF) | payer BC, SELFPAY ==
--- NOTE | ~2022-10-22 | MR_ITS ---
EXAMINATION: MRI ANKLE WITHOUT CONTRAST, RIGHT CLINICAL INFORMATION: Right ankle pain with occasional swelling. Peroneal tendon subluxation. COMPARISON: Right ankle radiographs dated 09/11/2022. TECHNIQUE: Multisequence MR imaging of the right ankle was obtained without contrast on a high-field strength scanner. FINDINGS: BONE AND ARTICULAR CARTILAGE: Mild degenerative spurring at the dorsal aspect of the talonavicular joint. No marrow edema. No acute fracture or dislocation. The ankle mortise is maintained. No talar osteochondral lesion. ACHILLES TENDON: Intact. OTHER TENDONS: Flattening and longitudinal split tearing of the peroneal brevis tendon at the level of the lateral malleolus, in the region of the overlying skin marker. This measures up to 5.5 cm in length. No transverse tendon tear or tendon retraction. The remaining flexor and extensor tendons are intact. LIGAMENTS: No evidence of acute ligament injury. JOINT FLUID AND SOFT TISSUES: Small posterior subtalar joint effusion. PLANTAR FASCIA: Intact. SINUS TARSI AND TARSAL TUNNEL: Patent. MR/MR ankle RT wo con IMPRESSION: 1. Flattening and longitudinal split tearing of the peroneal brevis tendon at the level of the lateral malleolus, in the region of the overlying skin marker. This measures up to 5.5 cm in length. No transverse tendon tear or tendon retraction. 2. Small posterior subtalar joint effusion. 3. Mild degenerative spurring at the dorsal aspect of the talonavicular joint.
== END 2022-10-22 07:19 | disposition home or self-care (01) ==
LOC: HO.MRI 07:18
PROVIDERS: Visit Provider Physician Assistant
DX: S93.331A Other subluxation of right foot, initial encounter (principal); X58.XXXA Exposure to other specified factors, initial encounter; Y93.9 Activity, unspecified; Y92.9 Unspecified place or not applicable; Y99.9 Unspecified external cause status
CPT/HCPCS: 73721

== ENCOUNTER → 2022-11-21 15:47 | Outpatient (BNVA) | payer BC, SELFPAY | PROVIDERS: PCP Physician Assistant; Visit Provider Physician Assistant | DX: Z13.89 Encounter for screening for other disorder (principal) ==

== ENCOUNTER 2023-03-11 10:41 | Outpatient (REF) | payer BC, SELFPAY | END 2023-03-11 10:42 | disposition home or self-care (01) | LOC: HO.XRAY 10:41 | PROVIDERS: PCP Physician Assistant; Visit Provider Physician Assistant | DX: M54.12 Radiculopathy, cervical region (principal) | CPT/HCPCS: 72050 ==

== ENCOUNTER 2023-09-02 09:18 | Outpatient (REF) | payer BC, SELFPAY ==
[2023-09-02 09:59] LABS: Hematocrit 36.2 % (37.0-47.0); Hemoglobin 12.5 g/dl (12.0-16.0); Mean Corpuscular HGB Conc 34.5 g/dl (31.0-35.0); Mean Corpuscular Hemoglobin 30.7 pg (27.0-33.0); Mean Corpuscular Volume 88.9 fL (80.0-98.0); Mean Platelet Volume 8.9 fL (9.4-12.3); Platelet Count 240 X10*3/uL (160-400); Red Blood Count 4.07 X10*6/uL (4.20-5.50); Red Cell Distribution Width 11.8 % (11.0-16.0); White Blood Count 4.6 X10*3/uL (4.8-10.8)
[2023-09-02 10:40] LABS: Alanine Aminotransferase 10 U/L (0-31); Albumin Level 4.4 g/dL (3.5-5.0); Alkaline Phosphatase 83 U/L (39-117); Anion Gap 13 (12-20); Aspartate Amino Transferase 16 U/L (5-31); Bilirubin Total 0.5 mg/dL (0.0-1.0); Blood Urea Nitrogen 19 mg/dL (9-16); Calcium 9.9 mg/dL (8.4-10.2); Carbon Dioxide 29 mmol/L (22-29); Chloride 103 mmol/L (96-108); Cholesterol 225 mg/dL (<200); Estimated Glomerular Filt Rate > 60; Glucose Fasting 104 mg/dL (60-99); HDL Cholesterol 78 mg/dL (>40); LDL Cholesterol Calculated 127 mg/dL (<100); Potassium 4.7 mmol/L (3.3-5.1); Sodium 140 mmol/L (135-145); Total Protein 7.3 g/dL (6.5-8.0); Triglycerides 100 mg/dL (<150)
[2023-09-02 10:58] LABS: TSH reflex Free T4 1.21 uIU/mL (0.32-4.0)
[2023-09-02 12:16] LABS: Creatinine Urine 29.06 mg/dL; Microalbum/Creatinine Ratio Ur 17.2 ug/mg cr (<30)
== END 2023-09-02 09:19 | disposition home or self-care (01) ==
LOC: HO.LAB 09:18
PROVIDERS: PCP Physician Assistant; Visit Provider Physician Assistant
DX: E03.9 Hypothyroidism, unspecified (principal); E78.1 Pure hyperglyceridemia; I10 Essential (primary) hypertension
CPT/HCPCS: 36415; 80053; 80061; 82043; 82570; 84443; 85027

== ENCOUNTER 2023-09-02 09:55 | Outpatient (AMB) | payer BC, SELFPAY ==
--- NOTE | 2023-09-02 09:58 | MHC.PC.OV ---
Vital Signs 09/02/23 10:02 Height 4 ft 11 in Weight 154 lb BMI 31.1 BP 120/64 Blood Pressure Location Lt brachial Position Sitting Pulse 70 Pulse Source Palpation Intake Visit Reasons: Follow-up hypertension [employer] Superintendent Required: No Accompanied by: Self / Same As Patient Allergies codeine [CODEINE] Allergy (Intermediate, Verified 09/02/23 10:30) VOMIT Medication List - Last Reconciled 09/02/23 by Jovanni Jimenez PA-C citalopram 20 mg PO DAILY gabapentin 300 mg PO TID PRN 30 days levothyroxine 50 mcg PO DAILY lisinopril-hydrochlorothiazide 10-12.5 mg 1 tab PO DAILY sumatriptan succinate 25 mg PO Q2-4H PRN 30 days tizanidine 4 mg PO Q8H PRN 30 days trazodone 50 mg PO BEDTIME PRN Tobacco use date assessed: 03/11/23 Dental Screening Dental Screen Date: 09/02/23 Did you have a dental visit in the last 12 months?: Yes Did you have a dental problem in the last 6 months where you did not have access to dental care?: No Was dental information given to patient?: Patient has dentist HPI Follow-up hypertension HPI Details Patient is a 57-year-old female here today for follow-up visit Patient has a past medical history significant for generalized anxiety disorder, hyperlipidemia, history of breast cancer status post bilateral mastectomy, migraines, hypothyroidism. Sharon--> has found somewhat discouraged that she has been having difficulty losing weight. Does exercise several times a week and feels she eats fairly well. She attributes her weight to perhaps her thyroid issue. .. HTN: Blood pressure today in office acceptable. 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 Hypertension Hypothyroid Breast cancer Surgical History History of surgery History of surgery H/O bilateral mastectomy Family History Father CAD (coronary artery disease) Mother Cervical cancer Social History Housing: House Alcohol intake: never Patient Tobacco Use Status: Never used Tobacco e-Cigarette/Vaping Use: Never Used Second Hand Smoke Exposure: No service: No Current occupational status: employed 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 Eugene Chua, Adela Pelayo, Selvin Thornton and colleagues, with an educational christi from [employer]. Review of Systems Const Denies headache(s) Eyes Denies loss of vision ENT Denies vertigo, Denies dizziness, Denies headache(s) and Denies sore throat Card Denies chest pain, Denies leg edema and Denies lightheadedness Resp Denies cough, Denies hemoptysis and Denies wheezing GI Denies abdominal pain, Denies melena, Denies constipation, Denies diarrhea and Denies vomiting Denies urinary frequency, Denies dysuria and Denies urinary urgency Musc Denies arthralgias, Denies joint swelling, Denies numbness and Denies tingling Neuro Denies Abnormal speech present, Denies behavioral changes, Denies vertigo, Denies dizziness, Denies headache(s), Denies loss of vision, Denies memory loss, Denies numbness and Denies tingling Psych Denies anxiety, Denies behavioral changes, Denies depression, Denies memory loss and Denies panic attacks Jorge/Lymph Denies easy bleeding and Denies easy bruising Aller/Immun Denies wheezing Physical exam (Primary Care) Vital Signs: Last Vital Signs Pulse 70 09/02/23 10:02 BP 120/64 09/02/23 10:02 BMI result Body Mass Index 31.1 Tobacco/Smoking Status: Tobacco use Status Tobacco use date assessed 03/11/23 09/02/23 09:58 Patient Tobacco Use Status Never used Tobacco 09/02/23 09:58 e-Cigarette/Vaping Use Never Used 09/02/23 09:58 Thrive Assessment: Date of Thrive Assessment Date Thrive assessed 09/19/22 09/02/23 09:58 Const General: healthy appearing, no acute distress, alert and awake Nutritional Appearance: well nourished Orientation/consciousness: oriented to person, oriented to place and oriented to time HENMT Ears: TM's normal bilaterally General nose exam: Normal nasal mucous membranes and turbinates present Eyes Conjunctivae: conjunctivae normal Sclerae: sclerae normal Pupils: Equal, round and reactive pupils present Neck Neck: Yes no lymphadenopathy and Yes no JVD Thyroid: Thyroid normal Carotids: no bruits Resp Effort & Inspection: normal respiratory effort and not tachypneic Auscultation: no crackles, no rales, no rhonchi and no wheezes Cardio Rate: regular rate Rhythm: regular rhythm Heart sounds: no murmurs and normal S1 and S2 GI Palpation (GI): Soft to palpation, nontender, no hepatomegaly and no splenomegaly Auscultation: normal bowel sounds Skin General skin exam: no rashes or lesions noted and dry skin Neuro General: oriented to person, oriented to place and oriented to time Cranial nerves: Yes Equal, round and reactive pupils present Speech: No Abnormal speech present Gait exam (Neuro): Normal gait present Motor exam (neuro): no tremor noted Extrem Right upper extremity: full ROM Left upper extremity: full ROM Right lower extremity: full ROM; no edema Left lower extremity: full ROM; no edema Ankle/foot/toe images: 1. RAISED PAPULE LIKE LESION OVER LEFT ANTERIOR PRATHER. Psych Mental Status: mental status grossly normal Speech and movement: Normal speech and movement present Affect: normal affect Attitude: cooperative Thought process: Normal thought process present Assessment and Plan Assessment & Plan (1) Hypothyroid: Code(s): E03.9 - Hypothyroidism, unspecified Qualifiers: Hypothyroidism type: unspecified Qualified Code(s): E03.9 - Hypothyroidism, unspecified Plan: Patient continues on low-dose levothyroxine with good effect. Patient's TSH has been stable. Will continue phone TSH to assure normal. (2) Hypertension: Code(s): I10 - Essential (primary) hypertension Qualifiers: Hypertension type: primary hypertension Qualified Code(s): I10 - Essential (primary) hypertension Plan: Patient's blood pressure acceptable today in office. Will continue her current dose of antihypertensive medication with goal blood pressure to be below 140/90 (3) Obese: Code(s): E66.9 - Obesity, unspecified Qualifiers: Obesity type: due to excess calories Obesity classification: adult class 1 (BMI 30 - 34.9) Serious obesity comorbidity presence: without serious comorbidity Body mass index: BMI 30.0-30.9 Qualified Code(s): E66.09 - Other obesity due to excess calories; Z68.30 - Body mass index [BMI] 30.0-30.9, adult Plan: Having difficulty losing weight. Patient does understand her BMI is over 30 will work on being a bit more physically active and adapting to better eating habits to reduce her weight (4) Leg skin lesion, left: Code(s): L98.9 - Disorder of the skin and subcutaneous tissue, unspecified Plan: Has had a skin lesion over her left prather over the last several years. She believes it was a bug bite though has healed in [place]. Does bleed/ scab at times. Will refer to dermatology for possible biopsy Orders: Orders Lipid Panel 6 Months E78.1 - Pure hyperglyceridemia Complete Blood Count no Diff 6 Months I10 - Essential (primary) hypertension Comprehensive [place]. Panel Fast 6 Months E78.1 - Pure hyperglyceridemia TSH reflex Free T4 6 Months E03.9 - Hypothyroidism, unspecified Microalbumin, Random (w Creat) 6 Months I10 - Essential (primary) hypertension Referrals Dermatology Referral L98.9 - Disorder of the skin and subcutaneous tissue, unspecified Medications: Refilled tizanidine Start at bedtime as medication can be sedating. 4 mg PO Q8H 30 days PRN 90 tabs 0RF muscle spasticity M62.838 - Other muscle spasm Coding Level of Care Code Est Pt Level 4 (11782) Diagnoses Hypothyroidism, unspecified type E03.9 Hypothyroidism type: unspecified Primary hypertension I10 Hypertension type: primary hypertension Class 1 obesity due to excess calories without serious comorbidity with body mass index (BMI) of 30.0 to 30.9 in adult E66.09; Z68.30 Obesity type: due to excess calories Obesity classification: adult class 1 (BMI 30 - 34.9) Serious obesity comorbidity presence: without serious comorbidity Body mass index: BMI 30.0-30.9 Leg skin lesion, left L98.9
[2023-09-02 10:02] VITALS: BP 120/64; PULSE 70; BMI 31.1
== END 2023-09-02 10:43 | disposition home or self-care (01) ==
PROVIDERS: PCP Physician Assistant; Visit Provider Physician Assistant
DX: E03.9 Hypothyroidism, unspecified (principal); I10 Essential (primary) hypertension; E66.09 Other obesity due to excess calories; Z68.30 Body mass index [BMI] 30.0-30.9, adult; L98.9 Disorder of the skin and subcutaneous tissue, unspecified
CPT/HCPCS: 99214

== ENCOUNTER 2023-11-28 10:53 | Outpatient (AMB) | payer BC, SELFPAY ==
--- NOTE | 2023-11-28 10:54 | A.OFFVIS_ITS ---
Intake Vital Signs 11/28/23 11:03 Height 4 ft 11 in Weight 156 lb BMI 31.5 BP 136/66 Blood Pressure Location Lt brachial Position Sitting Respiration 14 Pulse 68 Pulse Source Pulse Oximeter Pulse Oximetry (%) 98 Oxygen Delivery Method Room Air Intake Visit Reasons: medication follow up Allergies codeine [CODEINE] Allergy (Intermediate, Verified 11/28/23 11:03) VOMIT HPI HPI Comments History of Present Illness Details Patient presents today for follow up for medication review and refill. She was last seen in our office in September 2022. Patient is 1 year 3 months s/p bilateral sacroiliac joint RFA procedures with ongoing 60-70% pain relief, improved functioning, mobility, sleep and social interactions. She had right ankle sprain in September, and was followed by [facility]. Patient reports she has been taking gabapentin with good tolerance and no side effects for her chronic pain generators. She notes SIJ pain has been low but she intermittently gets tightness in her groin and lateral hips, right>work. Patient is interested to repeat sacroiliac joint RFA when her symptoms return to baseline. She is also aware of neuromodulation options and therapeutic injections. Denies any recent cough, cold, infection, fever, any significant changes in her medical history, medications or recent hospitalizations. Past Procedures: 10/07/22: Right GTB steroid injection-70 % pain relief 09/06/22: Left SIJ RFA-70% pain relief 08/23/22: Right SIJ RFA-60% pain relief 08/02/22: Bilateral SIJ Innervation Inje ction-80-90% pain relief for 3 days 05/07/22: Bilateral intra-articular SIJ injections with steroids- 50% pain relief for 1 week PRIOR: Patient presents today for follow up after PT and medication review. Unfortunately, due to high copays for PT, patient was not been able to start PT and has been doing stretching exercises on her own. Patient states she is trying to work out financial concerns with PT office and her insurance and is hopeful to start PT soon, especially for her ongoing neck pain. She reports tizanidine and gabapentin have been effective, well tolerates and no noted side effects except drowsiness with muscle relaxant which she is mainly takes at bedtime. Patient also has been taking Tylenol and NSAIDs with minimal pain relief. She requests refill for gabapentin. Patient continues to reports fibromyalgia, neck pain, left hip and bilateral SI joint pain, left side worse than right. We reviewed her xray imaging which is consistent with bilateral sacroiliitis. Today we discussed SIJ innervation, SIJ fusion, neuromodulation and ablation as well diagnostic and therapeutic intra- articular SIJ injections. Patient is interested to proceed with bilateral therapeutic SIJ injections at this time. PRIOR: Patient is a pleasant 56 years old female presents today for initial evaluation of multiple pain generators, including fibromyalgia, chronic left hip and ankle, left posterior thigh and left leg, neck, bilateral shoulders and hands pain. Denies any recent trauma, injury, or falls. She had multiple ER visits for multiple pain generators. Patient reports most concerning pain is the left hip that gives out at times. Pain exacerbated with prolonged sitting, walking, weight bearing, climbing stairs. Patient reports she is unable to lay on her left side due to pain. She states the pain is interfering with her sleep, activities, mood, quality of life, daily living and she cannot function normally. Patient works in a [employer] and walks over 8 miles per shift which significantly aggravates her symptoms. She reports chronic neck pain with muscle spasms related to osteoarthritis that radiates to her both shoulders with intermittent bilateral hand numbness and aching. Patient had a fall over a year ago and had hyperextension of her right hand backwards. She is right hand dominant. Reports bilateral aching and numbness in her hands. Patient has been seen by orthopedic services and received left shoulder cortisone on 02/05/22 and left hip cortisone injection 2 weeks ago and diclofenac gel provided her short term pain relief. Recent imaging shows no concern for left hip or pelvic fracture or dislocation. She has bilateral sacroiliitis, which is consistent with her imaging findings and exam. Left shoulder imaging showed mild acromioclavicular osteoarthritis. Patient denies previous physical therapy, chiropractic manipulation, massage or TENS unit. She denies any fever, chills, malaise, abdominal pain, lower extremity numbness or tingling, weight changes, bladder/bowel dysfunction or saddle anesthesia. She reports intermittent weakness of her left leg and both hands.? 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 Hypertension Hypothyroid Breast cancer Surgical History History of surgery History of surgery H/O bilateral mastectomy Family History Father CAD (coronary artery disease) Mother Cervical cancer Social History Housing: House Alcohol intake: never Patient Tobacco Use Status: Never used Tobacco e-Cigarette/Vaping Use: Never Used Second Hand Smoke Exposure: No service: No Current occupational status: employed 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 Alert and oriented. Mood and affect appropriate. Follows and participates in conversation appropriately. Respiratory effort is unlabored. No cough. No nasal discharge. Able to transition from sit to stand unassisted. Ambulates with bilaterally normal heel strike and toe off. Back/Spine/Pelvis Thoracic/Lumbar Spine: thoracic and lumbar spine normal to inspection, pain with thoraco-lumbar ROM, No thoracic spinal tenderness and No lumbar spinal tenderness Sacroiliac joints: bilaterally (mild tightness in both groins and lateral hips) tender to palpation (mild) Results Reviewed Results Reviewed: MRI of the lumbar spine 09/11/2022. Findings: 5 non rib-bearing lumbar type vertebral bodies. Lumbar alignment is normal. Vertebral body heights is maintained. No bone marrow edema. Discs remain well hydrated. No acute fractures. There is significant hypertrophic degenerative changes across the right SI joint. Conus terminates at L1. T10-11 facet arthropathy and ligamentum flavum thickening indent the left thecal sac and likely slightly flatten the left dorsal cord at the uppermost aspect of the study. L1-L2, L2-L3, L3-L4 disc orders are normal. No central canal stenosis and no foraminal stenosis at this levels. L4-5: Small annular disc bulge and moderate bilateral facet arthropathy and ligamentum flavum thickening resulting in narrowing of the left subarticular zone and probable mild mass effect on the traversing left L5 nerve root. There is mild foraminal encroachment bilaterally without exiting nerve root compression. No central canal stenosis. L5-S1: Small annular disc bulge and moderate left facet arthropathy. No central canal stenosis and no foraminal stenosis. Assessment & Plan Assessment & Plan (1) Fibromyalgia: Code(s): M79.7 - Fibromyalgia (2) Sacroiliac joint dysfunction: Code(s): M53.3 - Sacrococcygeal disorders, not elsewhere classified (3) Chronic lower back pain: Code(s): M54.50 - Low back pain, unspecified; G89.29 - Other chronic pain Plan Continue gabapentin 300 mg TID prn. Continue to monitor for any side effects, safety and precautions were reviewed with patient. Patient encouraged to continue daily physical activity, aerobics and gentle stretching exercises, good posture and adequate hydration. She will also notify our office when her sacroiliac joint pain returns to baseline for potential therapeutic injections vs repeat RFA. Neuromodulation treatment options were reviewed also. All questions and concerns have been answered and patient agreed with the plan. Follow up as needed. Coding Level of Care Code Est Pt Level 3 (88563) Diagnoses Fibromyalgia M79.7 Sacroiliac joint dysfunction M53.3 Chronic lower back pain M54.50; G89.29
[2023-11-28 11:03] VITALS: BP 136/66; PULSE 68; RESP 14; O2SAT 98; BMI 31.5
== END 2023-11-28 11:15 | disposition home or self-care (01) ==
PROVIDERS: PCP Physician Assistant; Visit Provider Nurse Practitioner Family
DX: M79.7 Fibromyalgia (principal); M53.3 Sacrococcygeal disorders, not elsewhere classified; M54.50 Low back pain, unspecified; G89.29 Other chronic pain
CPT/HCPCS: 99213

== ENCOUNTER → 2023-11-28 10:53 | Outpatient (BNVA) | payer BC, SELFPAY | PROVIDERS: PCP Physician Assistant; Visit Provider Nurse Practitioner Family ==

== ENCOUNTER 2024-01-03 09:18 | Outpatient (AMB) | payer BC, SELFPAY ==
[2024-01-03 10:41] VITALS: BP 120/68; PULSE 60; O2SAT 100; BMI 32.2
--- NOTE | 2024-01-03 10:41 | MHC.OFFWIV ---
Intake Vital Signs 01/03/24 10:41 Height 4 ft 11 in Weight 159 lb 4 oz BMI 32.2 BP 120/68 Blood Pressure Location Lt brachial Position Sitting Pulse 60 Pulse Source Pulse Oximeter Pulse Oximetry (%) 100 Oxygen Delivery Method Room Air Intake Visit Reasons: EP lump on LT wrist/painful/difficulty with hand Intake Note: Since Friday, patient has lump on left wrist with pain, numbness, soreness. Patient Tobacco Use Status: Never used Tobacco Allergies codeine [CODEINE] Allergy (Intermediate, Verified 01/03/24 10:42) VOMIT Medication List - Last Reconciled 01/03/24 by Artie Sanabria MD citalopram 20 mg PO DAILY gabapentin 300 mg PO TID PRN 30 days levothyroxine 50 mcg PO DAILY lisinopril-hydrochlorothiazide 10-12.5 mg 1 tab PO DAILY meloxicam 15 mg PO DAILY 30 days sumatriptan succinate 25 mg PO Q2-4H PRN 30 days tizanidine 4 mg PO Q8H PRN 30 days trazodone 50 mg PO BEDTIME PRN Do you need a note to return to daycare/school/sports/work: Yes HPI EP lump on LT wrist/painful/difficulty with hand HPI Details Pain at left wrist and dorsal base of thumb. Worsening over the past few days. No injury. Does have a history of arthritis and tendinitis. 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 Hypertension Hypothyroid Breast cancer Surgical History History of surgery History of surgery H/O bilateral mastectomy Family History Father CAD (coronary artery disease) Mother Cervical cancer Social History Housing: House Alcohol intake: never Patient Tobacco Use Status: Never used Tobacco e-Cigarette/Vaping Use: Never Used Second Hand Smoke Exposure: No service: No Current occupational status: employed 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 Cognitive needs: No Hearing needs: No Vision needs: Yes (glasses) Review of Systems Const Details: Left thumb and wrist pain - see HPI Denies chills, Denies fatigue, Denies fever(s), Denies headache(s) and Denies weakness ENT Denies dizziness and Denies headache(s) Card Denies dyspnea Resp Denies cough, Denies dyspnea, Denies wheezing and Denies other ( shortness of breath) Musc Denies numbness and Denies tingling Neuro Denies dizziness, Denies headache(s), Denies numbness, Denies tingling, Denies paresthesias and Denies weakness Psych Denies anxiety and Denies depression Endo Denies fatigue Aller/Immun Denies wheezing Physical Exam Vital Signs: Last Vital Signs Pulse 60 01/03/24 10:41 BP 120/68 01/03/24 10:41 Pulse Ox 100 01/03/24 10:41 Oxygen Delivery Method Room Air 01/03/24 10:41 BMI result Body Mass Index 32.2 Const General: no acute distress and well developed Nutritional Appearance: well nourished Orientation/consciousness: patient oriented x3 HEENT Head: Yes normocephalic and Yes atraumatic Eyes General: appearance normal, both eyes and all related structures Pupils: Equal, round and reactive pupils present EOM: EOMs intact bilaterally Resp Effort & Inspection: normal respiratory effort Neuro General: patient oriented x3 and gait normal Cranial nerves: Yes Equal, round and reactive pupils present Extrem Other: Mild bony prominence/swelling at dorsal aspect of base of thumb and wrist. Mild tenderness. No erythema or excess warmth. Negative Carlos sign. Psych Affect: normal affect Assessment & Plan Assessment & Plan (1) Left wrist pain: Code(s): M25.532 - Pain in left wrist Plan: Xu Cabrera Wrist arthritis Probable tendonitis as well Check Xray to r/o occult fracture or mass Meloxicam Ice/Heat Wrist brace when working Orders: Orders XR hand wrist LT Today M25.532 - Pain in left wrist Medications: New meloxicam 15 mg PO DAILY 30 days 30 tabs 2RF M25.532 - Pain in left wrist Coding Level of Care Code Est Pt Level 3 (48203) Diagnoses Left wrist pain M25.532
== END 2024-01-03 14:17 | disposition home or self-care (01) ==
PROVIDERS: PCP Physician Assistant; Visit Provider Family Medicine
DX: M25.532 Pain in left wrist (principal)
CPT/HCPCS: 99213

== ENCOUNTER 2024-01-03 11:47 | Outpatient (REF) | payer BC, SELFPAY ==
--- NOTE | ~2024-01-03 | XR_ITS ---
EXAMINATION: XR HAND/WRIST, LEFT CLINICAL INFORMATION: Pain COMPARISON: None TECHNIQUE: PA, lateral, and oblique views of the left hand and wrist. FINDINGS: The bones and soft tissues are normal. No fracture. Alignment is anatomic. Joint spaces are maintained. No erosions or soft tissue calcifications. XR/XR hand wrist LT IMPRESSION: Normal radiographs of the hand and wrist.
== END 2024-01-03 11:48 | disposition home or self-care (01) ==
LOC: HO.HMGCX 11:47
PROVIDERS: PCP Physician Assistant; Visit Provider Family Medicine
DX: M25.532 Pain in left wrist (principal)
CPT/HCPCS: 73110; 73130

== ENCOUNTER 2024-02-18 10:00 | Outpatient (AMB) | payer BC, SELFPAY ==
[2024-02-18 10:18] VITALS: BP 112/72; PULSE 59; O2SAT 97; BMI 30.9
--- NOTE | 2024-02-18 10:18 | A.OFFPC_ITS ---
Vital Signs 3 02/18/24 10:18 Height 4 ft 11 in Weight 153 lb 2 oz BMI 30.9 BP 112/72 Blood Pressure Location Lt brachial Position Sitting Pulse 59 Pulse Source Pulse Oximeter Pulse Oximetry (%) 97 Oxygen Delivery Method Room Air Intake Visit Reasons: Lump on breast Intake Note: Pt is here for lump n the right side of the chest cavity feeling tenderness. Cpht Required: No Accompanied by: Self / Same As Patient Allergies codeine [CODEINE] Allergy (Intermediate, Verified 02/18/24 10:36) VOMIT Medication List - Last Reconciled 02/18/24 by Jovanni Jimenez PA-C citalopram 20 mg PO DAILY gabapentin 300 mg PO TID PRN 30 days levothyroxine 50 mcg PO DAILY lisinopril-hydrochlorothiazide 10-12.5 mg 1 tab PO DAILY sumatriptan succinate 25 mg PO Q2-4H PRN 30 days tizanidine 4 mg PO Q8H PRN 30 days trazodone 50 mg PO BEDTIME PRN Tobacco use date assessed: 02/18/24 Dental Screening Dental Screen Date: 02/18/24 Did you have a dental visit in the last 12 months?: Yes Did you have a dental problem in the last 6 months where you did not have access to dental care?: No Was dental information given to patient?: Patient has dentist HPI Lump on breast 2 HPI0 Details Patient is a 58-year-old female here today for problem visit. She reports has noted a lump over her right chest over last week. She does report the lump is slightly tender. Of note did have breast cancer in did have a total bilateral mastectomy In 2011. Hypertension: She does note her blood pressures have been a bit lower as of late. Does report some fatigue and had checked her blood pressure and noted systolic blood pressures of 100-110. PLAN: Will transition to a single blood pressure agent with lisinopril 10 mg. Will discontinue hydrochlorothiazide. 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 Hypertension Hypothyroid Breast cancer Surgical History History of surgery History of surgery H/O bilateral mastectomy Family History Father CAD (coronary artery disease) Mother Cervical cancer Social History Housing: House Alcohol intake: never Patient Tobacco Use Status: Never used Tobacco e-Cigarette/Vaping Use: Never Used Second Hand Smoke Exposure: No service: No Current occupational status: employed 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 1. Little interest or pleasure in doing things: not at all 2. Feeling down, depressed, or hopeless: not at all 3. Trouble falling or staying asleep, or sleeping too much: not at all 4. Feeling tired or having little energy: not at all 5. Poor appetite or overeating: not at all 6. Feeling bad about yourself - or that you are a failure or have let yourself or your family down: not at all 7. Trouble concentrating on things, such as reading the newspaper or watching television: not at all 8. Moving or speaking so slowly that other people could have noticed. Or the opposite - being so fidgety or restless that you have been moving around a lot more than usual: not at all 9. Thoughts that you would be better off or of hurting yourself in some way: not at all Total score: 0 Depression Screening Interpretation: Negative Depression Screening Done: Yes 49683 - PHQ-9 Billing: Yes Source: Developed by Drs. Eugene Chua, Adela Pelayo, Selvin Thornton and colleagues, with an educational christi from [employer]. Thrive Questionnaire Date Thrive assessed: 02/18/24 I am a: Patient What is your living situation today?: I have a steady place to live Within the past 12 months, did the food you bought not last and you didn't have the money to get more?: Never true Within the past 12 months, did you worry whether your food would run out before you got money to buy more?: Never true Do you have trouble paying for medicines?: No Do you have trouble getting transportation to medical appointments?: No Do you have trouble paying your heating and electricity bill?: No Do you have trouble taking care of your child, family member or friend?: No Do you have trouble with day-to-day activities such as bathing, preparing meals, shopping, managing finances, etc.?: No Are you currently unemployed and looking for a job?: No Are you interested in more education?: No Please select the resources that you would like help with: None Currently or been in a relationship where the following occur: no concerns reported THRIVE Score: 0 AUDIT C Alcohol Use Questionnaire (AUDIT-C) 1. How often do you have a drink containing alcohol?: Never 3. How often do you have six or more drinks on one occasion?: Never Total Score: 0 Score Reviewed/Action Taken: No VALARIE-7 AMB Questionnaire VALARIE-7 Date VALARIE - 7 assessed: 02/18/24 Feeling nervous, anxious, or on edge: 0 = Not at all Not being able to stop or control worryin = Not at all Worrying too much about different things: 0 = Not at all Trouble relaxin = Not at all Being so restless that it is hard to sit still: 0 = Not at all Becoming easily annoyed or irritable: 0 = Not at all Feeling afraid as if something awful might happen: 0 = Not at all Total VALARIE-7 score (0-4 normal; 5-9 mild; 10-14 moderate; 15-21 severe): 0 Source: Developed by Drs. Eugene Chua, Adela Pelayo, Selvin Thornton and colleagues, with an educational christi from [employer]. VALARIE-7 Assessment Billing VALARIE-7 Assessment Tool: VALARIE-7 Assessment 55475 Physical exam (Primary Care) Vital Signs: Last Vital Signs Pulse 59 02/18/24 10:18 BP 112/72 02/18/24 10:18 Pulse Ox 97 02/18/24 10:18 Oxygen Delivery Method Room Air 02/18/24 10:18 BMI result Body Mass Index 30.9 Tobacco/Smoking Status: Tobacco use Status Tobacco use date assessed 02/18/24 02/18/24 10:23 Patient Tobacco Use Status Never used Tobacco 02/18/24 10:23 e-Cigarette/Vaping Use Never Used 02/18/24 10:23 PHQ-9: PHQ-9 Score PHQ-9: Total score 0 02/18/24 10:39 Depression Screening Interpretation: Negative Thrive Assessment: Date of Thrive Assessment Date Thrive assessed 02/18/24 02/18/24 10:23 Currently or been in a relationship where the following occur: no concerns reported Chest Chest/axillae images: 2 1. SMALL PALPABLE MOBILE LUMP NOTED IN THE AREA OUTLINED AT 12:00 O'CLOCK FROM THE AREOLA Assessment and Plan Assessment & Plan (1) Breast mass, right: Code(s): N63.10 - Unspecified lump in the right breast, unspecified quadrant Qualifiers: Breast mass location: upper outer quadrant Qualified Code(s): N63.11 - Unspecified lump in the right breast, upper outer quadrant Plan: As per HPI there is a small mobile palpable mass on the right chest 12:00 o'clock from areola noted over last 2 weeks. Of note patient has a history of breast cancer and has had bilateral total mastectomies in 2012. (2) Hypertension: Code(s): I10 - Essential (primary) hypertension Qualifiers: Hypertension type: primary hypertension Qualified Code(s): I10 - Essential (primary) hypertension Plan: Blood pressure acceptable today in office. She does admit to having lower blood pressure readings as of late. She does report some fatigue. Will discontinue hydrochlorothiazide . Advised to continue monitoring blood pressure Orders: Orders 2 US breast RT limited Today N63.11 - Unspecified lump in the right breast, upper outer quadrant Referrals 2 General Surgery Referral N63.11 - Unspecified lump in the right breast, upper outer quadrant Medications: New 2 lisinopril 10 mg PO DAILY 90 tabs 1RF 90 days I10 - Essential (primary) hypertension, N63.11 - Unspecified lump in the right breast, upper outer quadrant Discontinued 2 lisinopril-hydrochlorothiazide 10-12.5 mg Discontinued Reason: Doctor's Order 1 tab PO DAILY 90 tabs 2RF E03.9 - Hypothyroidism, unspecified Patient Instructions: Goal: Blood pressure to remain below 140/90 and above 100/60 Barrier: Adherence to physical activity and healthy eating habits Coding Level of Care Code Est Pt Level 4 (94061) Diagnoses Mass of upper outer quadrant of right breast N63.11 Breast mass location: upper outer quadrant Primary hypertension I10 Hypertension type: primary hypertension Additional Codes VALARIE-7 Assessment Billing - VALARIE-7 Assessment Tool: VALARIE-7 Assessment 15084 ([id number])
== END 2024-02-18 10:50 | disposition home or self-care (01) ==
PROVIDERS: PCP Physician Assistant; Visit Provider Physician Assistant
DX: N63.11 Unspecified lump in the right breast, upper outer quadrant (principal); I10 Essential (primary) hypertension
CPT/HCPCS: 99214

== ENCOUNTER 2024-03-03 14:17 | Outpatient (REF) | payer BC, SELFPAY ==
--- NOTE | ~2024-03-03 | US_ITS ---
EXAMINATION: US DIAGNOSTIC ULTRASOUND BREAST, RIGHT CLINICAL INFORMATION: Patient with bilateral mastectomies complaining of right lump and upper inner quadrant area x1 month. Patient has history of costochondritis. There is no remaining breast tissue. COMPARISON: 11/19/2018 left breast and axillary ultrasound. No prior right ultrasound. TECHNIQUE: Ultrasound of the right chest wall is performed with real-time lama scale imaging and color Doppler. Attention was given to the upper inner area with the patient marked as the area of lump and pain. FINDINGS: No breast tissue is visualized after mastectomy. Only subcutaneous fat, upper inner pectoralis muscle, and costochondral junction of several ribs is noted. Patient was tender on scanning related to the costochondral junctions, suggesting the underlying diagnosis is costochondral pain. Results are discussed with the patient at time of visit. US/US breast RT limited mamm only IMPRESSION: Findings consistent with costochondral pain in the upper inner quadrant right chest wall. Recommend clinical management and follow-up. ASSESSMENT: BI-RADS 2 - Benign Findings RECOMMENDATION: Clinical follow-up and management.
== END 2024-03-03 14:18 | disposition home or self-care (01) ==
LOC: HO.MAMMO 14:17
PROVIDERS: PCP Physician Assistant; Visit Provider Physician Assistant
DX: N63.11 Unspecified lump in the right breast, upper outer quadrant (principal)
CPT/HCPCS: 76642

== ENCOUNTER → 2024-03-03 14:19 | Outpatient (BNV) | payer BC, SELFPAY | PROVIDERS: PCP Physician Assistant; Visit Provider Radiology Diagnostic Radiology | DX: R07.9 Chest pain, unspecified (principal); Z90.13 Acquired absence of bilateral breasts and nipples | CPT/HCPCS: 76642 ==

== ENCOUNTER 2024-10-20 08:07 | Outpatient (AMB) | payer BC, SELFPAY ==
--- NOTE | 2024-10-20 08:17 | MHC.PC.OV ---
Vital Signs 10/20/24 08:19 Height 4 ft 11 in Weight 155 lb BMI 31.3 BP 130/72 Blood Pressure Location Lt brachial Position Sitting Pulse 74 Pulse Source Pulse Oximeter Pulse Oximetry (%) 97 Oxygen Delivery Method Room Air Intake Visit Reasons: 6M Follow Up Intake Note: Patient here for a 6 month follow up House Nurse Required: No Accompanied by: Self / Same As Patient Allergies codeine [CODEINE] Allergy (Intermediate, Verified 10/20/24 08:35) VOMIT Medication List - Last Reconciled 10/20/24 by Jovanni Jimenez PA-C citalopram 20 mg PO DAILY gabapentin 300 mg PO TID PRN 90 days levothyroxine 50 mcg PO DAILY lisinopril 10 mg PO DAILY 90 days sumatriptan succinate 25 mg PO Q2-4H PRN 30 days tizanidine 4 mg PO Q8H PRN 30 days trazodone 50 mg PO BEDTIME PRN Tobacco use date assessed: 10/20/24 Dental Screening Dental Screen Date: 10/20/24 Did you have a dental visit in the last 12 months?: Yes Did you have a dental problem in the last 6 months where you did not have access to dental care?: No Was dental information given to patient?: Patient has dentist HPI 6M Follow Up HPI Details Patient is a 58 year-old female here today for follow-up visit Patient has a past medical history significant for generalized anxiety disorder, hyperlipidemia, history of breast cancer status post bilateral mastectomy, migraines, hypothyroidism. Cocnerns--> The new chief complaint involves knee pain which began approximately two weeks ago, initially presenting while kneeling. The pain is localized to the anterior knee and is described as excruciating and associated with a sensation maximilian to kneeling on a carpet edge. There is remaining tenderness, particularly on the lateral aspect of the knee, without swelling or limitation in bending; however, kneeling exacerbates symptoms. No traumatic incidents are reported. .. HTN: Blood pressure today in office acceptable. Will continue her current dose of antihypertensive medication. .. Hypothyroidism: Hypothyroidism is managed with thyroxin, and regular labs are suggested for thyroid function monitoring. 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 Hypertension Hypothyroid Breast cancer Surgical History History of surgery History of surgery H/O bilateral mastectomy Family History Father CAD (coronary artery disease) Mother Cervical cancer Social History Housing: House Alcohol intake: never Patient Tobacco Use Status: Never used Tobacco e-Cigarette/Vaping Use: Never Used Second Hand Smoke Exposure: No service: No Current occupational status: employed 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 1. Little interest or pleasure in doing things: not at all 2. Feeling down, depressed, or hopeless: not at all 3. Trouble falling or staying asleep, or sleeping too much: not at all 4. Feeling tired or having little energy: not at all 5. Poor appetite or overeating: not at all 6. Feeling bad about yourself - or that you are a failure or have let yourself or your family down: not at all 7. Trouble concentrating on things, such as reading the newspaper or watching television: not at all 8. Moving or speaking so slowly that other people could have noticed. Or the opposite - being so fidgety or restless that you have been moving around a lot more than usual: not at all 9. Thoughts that you would be better off or of hurting yourself in some way: not at all Total score: 0 Depression Screening Interpretation: Negative Depression Screening Done: Yes 21523 - PHQ-9 Billing: Yes Source: Developed by Drs. Eugene Chua, Adela Pelayo, Selvin Thornton and colleagues, with an educational christi from [employer]. Thrive Questionnaire Date Thrive assessed: 10/20/24 I am a: Patient What is your living situation today?: I have a steady place to live Within the past 12 months, did the food you bought not last and you didn't have the money to get more?: Never true Within the past 12 months, did you worry whether your food would run out before you got money to buy more?: Never true Do you have trouble paying for medicines?: No Do you have trouble getting transportation to medical appointments?: No Do you have trouble paying your heating and electricity bill?: No Do you have trouble taking care of your child, family member or friend?: No Do you have trouble with day-to-day activities such as bathing, preparing meals, shopping, managing finances, etc.?: No Are you currently unemployed and looking for a job?: No Are you interested in more education?: No Please select the resources that you would like help with: None Currently or been in a relationship where the following occur: No concerns reported THRIVE Score: 0 AUDIT C Alcohol Use Questionnaire (AUDIT-C) 1. How often do you have a drink containing alcohol?: Never Total Score: 0 VALARIE-7 AMB Questionnaire VALARIE-7 Date VALARIE - 7 assessed: 10/20/24 Feeling nervous, anxious, or on edge: 0 = Not at all Not being able to stop or control worryin = Not at all Worrying too much about different things: 0 = Not at all Trouble relaxin = Not at all Being so restless that it is hard to sit still: 0 = Not at all Becoming easily annoyed or irritable: 0 = Not at all Feeling afraid as if something awful might happen: 0 = Not at all Total VALARIE-7 score (0-4 normal; 5-9 mild; 10-14 moderate; 15-21 severe): 0 Source: Developed by Drs. Eugene Chua, Adela Pelayo, Selvin Thornton and colleagues, with an educational christi from [employer]. VALARIE-7 Assessment Billing VALARIE-7 Assessment Tool: VALARIE-7 Assessment 68292 Review of Systems Const Denies headache(s) Eyes Denies loss of vision ENT Denies vertigo, Denies dizziness, Denies headache(s) and Denies sore throat Card Denies chest pain, Denies leg edema and Denies lightheadedness Resp Denies cough, Denies hemoptysis and Denies wheezing GI Denies abdominal pain, Denies melena, Denies constipation, Denies diarrhea and Denies vomiting Denies urinary frequency, Denies dysuria and Denies urinary urgency Musc Denies arthralgias, Denies joint swelling, Denies numbness and Denies tingling Neuro Denies Abnormal speech present, Denies behavioral changes, Denies vertigo, Denies dizziness, Denies headache(s), Denies loss of vision, Denies memory loss, Denies numbness and Denies tingling Psych Denies anxiety, Denies behavioral changes, Denies depression, Denies memory loss and Denies panic attacks Jorge/Lymph Denies easy bleeding and Denies easy bruising Aller/Immun Denies wheezing Physical exam (Primary Care) Vital Signs: Last Vital Signs Pulse 74 10/20/24 08:19 BP 130/72 10/20/24 08:19 Pulse Ox 97 10/20/24 08:19 Oxygen Delivery Method Room Air 10/20/24 08:19 BMI result Body Mass Index 31.3 Tobacco/Smoking Status: Tobacco use Status Tobacco use date assessed 10/20/24 10/20/24 08:23 Patient Tobacco Use Status Never used Tobacco 10/20/24 08:17 e-Cigarette/Vaping Use Never Used 10/20/24 08:17 PHQ-9: PHQ-9 Score PHQ-9: Total score 0 10/20/24 08:38 Depression Screening Interpretation: Negative Thrive Assessment: Date of Thrive Assessment Date Thrive assessed 10/20/24 10/20/24 08:23 Currently or been in a relationship where the following occur: No concerns reported Const General: healthy appearing, no acute distress, alert and awake Nutritional Appearance: well nourished Orientation/consciousness: oriented to person, oriented to place and oriented to time [facility] Ears: TM's normal bilaterally General nose exam: Normal nasal mucous membranes and turbinates present Eyes Conjunctivae: conjunctivae normal Sclerae: sclerae normal Pupils: Equal, round and reactive pupils present Neck Neck: Yes no lymphadenopathy and Yes no JVD Thyroid: Thyroid normal Carotids: no bruits Resp Effort & Inspection: normal respiratory effort and not tachypneic Auscultation: no crackles, no rales, no rhonchi and no wheezes Cardio Rate: regular rate Rhythm: regular rhythm Heart sounds: no murmurs and normal S1 and S2 GI Palpation (GI): Soft to palpation, nontender, no hepatomegaly and no splenomegaly Auscultation: normal bowel sounds Skin General skin exam: no rashes or lesions noted and dry skin Neuro General: oriented to person, oriented to place and oriented to time Cranial nerves: Yes Equal, round and reactive pupils present Speech: No Abnormal speech present Gait exam (Neuro): Normal gait present Motor exam (neuro): no tremor noted Extrem Right upper extremity: full ROM Left upper extremity: full ROM Right lower extremity: full ROM; no edema Left lower extremity: full ROM; no edema Psych Mental Status: mental status grossly normal Speech and movement: Normal speech and movement present Affect: normal affect Attitude: cooperative Thought process: Normal thought process present Office Procedures Flu Questionnaire Does the patient have a severe egg allergy?: No Immunizations Fluarix Triv [id number] (PF) 45 mcg (15 mcg x 3)/0.5 mL IM syringe Performing Provider: Jovanni Jimenez PA-C [place] [place] [facility] Documented (not given) by: GENESIS Huang on 10/20/24 08:34 Reason Not Given: Received Previously Coding Level of Care Code Est Pt Level 4 (04303) Diagnoses Pure hypertriglyceridemia E78.1 Hyperlipidemia type: pure hypertriglyceridemia Class 1 obesity E66.811 Primary hypertension I10 Hypertension type: primary hypertension Hypothyroidism, unspecified type E03.9 Hypothyroidism type: unspecified Sprain of lateral collateral ligament of right knee, initial encounter S83.421A Encounter type: initial encounter Laterality: right Additional Codes PHQ-9 - 00302 - PHQ-9 Billing: Yes ([id number]) VALARIE-7 Assessment Billing - VALARIE-7 Assessment Tool: VALARIE-7 Assessment 71261 ([id number]) Assessment & Plan Assessment & Plan (1) HLD (hyperlipidemia): Code(s): E78.5 - Hyperlipidemia, unspecified Category: Medical Qualifiers: Hyperlipidemia type: pure hypertriglyceridemia Qualified Code(s): E78.1 - Pure hyperglyceridemia Plan: Patient continues to work on low-cholesterol diet. Will recheck fasting lipid panel to ensure appropriate total cholesterol and LDL. Goal LDL is to be below 130. (2) Class 1 obesity: Code(s): E66.811 - Obesity, class 1 Category: Medical Plan: Patient does understand her BMI is over 30 and has been a bit discouraged that she has not been able to lose weight. She has been physically active and is compliant with a low (3) Hypertension: Code(s): I10 - Essential (primary) hypertension Category: Medical Qualifiers: Hypertension type: primary hypertension Qualified Code(s): I10 - Essential (primary) hypertension Plan: Patient's blood pressure acceptable today in office. She will continue on lisinopril 10 mg with goal blood pressure to remain below 140/90 (4) Hypothyroid: Code(s): E03.9 - Hypothyroidism, unspecified Category: Medical Qualifiers: Hypothyroidism type: unspecified Qualified Code(s): E03.9 - Hypothyroidism, unspecified Plan: Patient's most recent TSH stable. She continues on levothyroxine 50 mcg. Will continue to follow TSH to assure normal. (5) Sprain of LCL (lateral collateral ligament) of knee: Code(s): S83.429A - Sprain of lateral collateral ligament of unspecified knee, initial encounter Category: Medical Qualifiers: Encounter type: initial encounter Laterality: right Qualified Code(s): S83.421A - Sprain of lateral collateral ligament of right knee, initial encounter Plan: Patient reports kneeling on her right knee and feeling a sharp pain and tugging in her lateral right knee that radiate into the anterior aspect of her right knee. Signs symptoms consistent with ligamentous strain. Will watch and wait in treat with conservative measures for now. Orders: Orders Influenza [id number] Immunization Today Z23 - Encounter for immunization Microalbumin, Random (w Creat) Today I10 - Essential (primary) hypertension Comprehensive [place]. Panel Fast Today I10 - Essential (primary) hypertension Lipid Panel Today E78.1 - Pure hyperglyceridemia TSH reflex Free T4 Today E03.9 - Hypothyroidism, unspecified Complete Blood Count no Diff Today I10 - Essential (primary) hypertension Medications: Refilled tizanidine Start at bedtime as medication can be sedating. 4 mg PO Q8H PRN 90 tabs 0RF muscle spasticity 30 days M62.838 - Other muscle spasm Patient Instructions: Goal: Blood pressure to remain below 140/90, LDL to remain below 130 Barriers: Adherence to physical activity and healthy eating habits
[2024-10-20 08:19] VITALS: BP 130/72; PULSE 74; O2SAT 97; BMI 31.3
== END 2024-10-20 08:51 | disposition home or self-care (01) ==
PROVIDERS: PCP Physician Assistant; Visit Provider Physician Assistant
DX: E78.1 Pure hyperglyceridemia (principal); E66.811 Obesity, class 1; Z68.30 Body mass index [BMI] 30.0-30.9, adult; I10 Essential (primary) hypertension; E03.9 Hypothyroidism, unspecified; S83.421A Sprain of lateral collateral ligament of right knee, initial encounter

== ENCOUNTER → 2024-10-20 08:07 | Outpatient (BNVA) | payer BC, SELFPAY | PROVIDERS: PCP Physician Assistant; Visit Provider Physician Assistant | DX: E78.1 Pure hyperglyceridemia (principal); E66.811 Obesity, class 1; I10 Essential (primary) hypertension; E03.9 Hypothyroidism, unspecified; Z79.899 Other long term (current) drug therapy; X58.XXXA Exposure to other specified factors, initial encounter; Y93.9 Activity, unspecified; Y92.9 Unspecified place or not applicable; Y99.9 Unspecified external cause status | CPT/HCPCS: 96127 ==

== ENCOUNTER 2025-02-03 10:07 | Emergency (ER) | payer BC, SELFPAY ==
--- NOTE | ~2025-02-03 | CT_ITS ---
EXAMINATION: CT ANGIOGRAM HEAD AND NECK CLINICAL INFORMATION: Left-sided neck pain and headache. COMPARISON: None available. TECHNIQUE: Noncontrast axial imaging of the head was performed. This was followed by test bolus sequences and head and neck intravenous bolus administration 70 mL of Omnipaque 350. Helical imaging was performed in the axial plane from the aortic arch to the skull vertex. The data was processed at the sterile processing technologist's workstation for generation of MIP sequences. Angled MIPs and volume rendered reformatted images were also generated at an offline 3D workstation. Stenoses are assessed in accordance with NASCET criteria unless otherwise indicated. This CT examination was performed using dose optimization techniques as appropriate, variously including the following: *Automated exposure control *Adjustment of mA and/or kV according to patient size (this includes techniques or standardized protocols for targeted exams where dose is matched to indication/reason for exam; i.e. extremities or head) *Use of iterative reconstruction technique FINDINGS: NONCONTRAST HEAD CT: There is no evidence of intracranial hemorrhage or extra-axial fluid collection. There is no mass effect, or edema. No CT evidence of acute territorial infarct. Ventricles, sulci, and cisterns are normal in size and configuration for patient age. No hydrocephalus. No midline shift. No significant white matter abnormalities. Normal pituitary. Globes and orbital contents image normally. No extracranial soft tissue abnormalities. The paranasal sinuses, mastoid air cells, and tympanic cavities are normally aerated. No suspicious bony abnormalities. NECK CTA: -AORTIC ARCH: Normal in caliber. Mild atheromatous calcification. Three-vessel branching pattern. -GREAT VESSEL ORIGINS: Widely patent. No stenosis. -RIGHT COMMON CAROTID ARTERY: Extremely short course. Extremely early bifurcation. Normal in caliber. -CERVICAL RIGHT INTERNAL CAROTID ARTERY: Extremely early bifurcation, just after the subclavian artery origin. Normal in course and caliber into the skull base. -LEFT COMMON CAROTID ARTERY: Normal in course and caliber to the level of the bifurcation. -CERVICAL LEFT INTERNAL CAROTID ARTERY: Normal opacification without focal stenosis or occlusion. -CERVICAL RIGHT VERTEBRAL ARTERY: Codominant. Normal origin. Normal in course and caliber into the skull base. -CERVICAL LEFT VERTEBRAL ARTERY: Codominant. Normal origin. Normal in course and caliber into the skull base. OTHER, SOFT TISSUES: -No lymphadenopathy or mass. No abnormal fluid collection or soft tissue swelling. -Normal thyroid. -Imaged superior mediastinal structures normal. -Imaged lung apices demonstrate a right upper lobe 5 mm nodule (series 9, image 117). Lung apices are otherwise clear. CTA OF THE BRAIN: -INTRACRANIAL INTERNAL CAROTID ARTERIES: No focal stenosis or occlusion. -RIGHT ANTERIOR CEREBRAL ARTERY: The A1 segment is extremely diminutive. The A2 segment is supplied by the left LAYLA. Normal arborization of the distal segments. -LEFT ANTERIOR CEREBRAL ARTERY: Normal A1 segment.. Normal arborization of the distal segments. -ANTERIOR COMMUNICATING ARTERY: Normal. -RIGHT MIDDLE CEREBRAL ARTERY: Normal M1 segment of the MCA without focal stenosis or occlusion. Normal bifurcation. Normal arborization of the distal segments. -LEFT MIDDLE CEREBRAL ARTERY: Normal M1 segment of the MCA without focal stenosis or occlusion. Normal bifurcation. Normal arborization of the distal segments. -RIGHT VERTEBRAL ARTERY V4: Normal in course and caliber. -LEFT VERTEBRAL ARTERY V4: Normal in course and caliber. -BASILAR ARTERY: Normal without focal stenosis or occlusion. Normal appearance of the proximal superior cerebellar arteries. Normal basilar tip. -RIGHT POSTERIOR CEREBRAL ARTERY: Normal P1 segment. Normal opacification of the distal [employer] segments. -LEFT POSTERIOR CEREBRAL ARTERY: The P1 segment is diminutive. origin of the [employer] with robust opacification of the posterior communicating artery. Normal opacification of the distal [employer]GRAM [employer]OR segments. -POSTERIOR COMMUNICATING ARTERIES: Normal opacification of the superior sagittal, straight, transverse, and sigmoid sinuses. No venous thrombosis. No space-occupying hemorrhage or definite evolving infarct. CT/CT angio head neck IMPRESSION: NONCONTRAST HEAD CT: 1. No acute intracranial abnormality. CTA NECK: 1. 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 2. No significant stenosis, occlusion, dissection, or aneurysm of the major cervical arterial vasculature. 3. 5 mm right upper lobe nodule, nonspecific. One-year follow-up recommended in a high-risk patient. CTA HEAD: 1. No evidence of significant stenosis, occlusion, dissection, or aneurysm of the major intracranial arterial vasculature. 2. Anatomic variation as discussed. 3. Patent cortical and dural venous sinuses. Electronically signed by: Isaiah Dupree MD 02/03/2025 01:59 PM EDT
[2025-02-03 10:14] VITALS: BP 122/74; PULSE 75; RESP 18; TEMP 36.6; O2SAT 99; BMI 31.2
--- NOTE | 2025-02-03 10:14 | ED_ITS ---
HPI - General Adult General Chief complaint: Neck Pain/Injury Stated complaint: Neck & back pain, migraines Time Seen by Provider: 02/03/25 10:42 Source: patient and old records reviewed Mode of arrival: ambulatory Limitations: no limitations History of Present Illness ED Provider: FLAKITO MCCALLUM narrative: 59 yo female with PMH of neck arthritis, HTN, not on blood thinners who notes 2 days ago she turned her neck to the right and felt a pop. Since then she has had R sided headache and synagogue pain that will not go away. No numbness, weakness, no n/v, fevers but she felt her vision get blurry and resolve at times. She has no hx of dissection or aneurysm. MD complaint: neck pain, headache Onset (ago): day(s) (2) Location: head and neck Radiation: other (head) Severity: severe Quality: constant and other (throbbing) Pain Consistency: constant Relieving factors: none Exacerbating factors: none Associated symptoms: headaches Treatments prior to arrival: none Related Data Previous Rx's ?Medication ?Instructions ?Recorded sumatriptan succinate 25 mg tablet 25 mg PO Q2-4H PRN migraine 03/08/23 headache 30 days #9 tabs lisinopril 10 mg tablet 10 mg PO DAILY 90 days #90 tabs 05/27/24 trazodone 50 mg tablet 50 mg PO BEDTIME PRN for insomnia 06/28/24 #90 tabs levothyroxine 50 mcg tablet 50 mcg PO DAILY #90 tabs 08/05/24 citalopram 20 mg tablet 20 mg PO DAILY #90 tabs 09/21/24 gabapentin 300 mg capsule 300 mg PO TID PRN for pain 90 days 09/23/24 #270 caps tizanidine 4 mg tablet 4 mg PO Q8H PRN muscle spasticity 10/20/24 30 days #90 tabs hydrocodone 5 mg-acetaminophen 325 1 tab PO Q6H PRN pain #10 tabs 02/03/25 mg tablet lidocaine 5 % topical patch 1 patch topical DAILY #30 ea 02/03/25 ondansetron 4 mg disintegrating 4 mg PO Q8H PRN nausea and 02/03/25 tablet vomiting #20 tabs prednisone 10 mg tablet 10 mg PO DIRECTED #41 tabs 02/03/25 Allergies Allergy/AdvReac Type Severity Reaction Status Date / Time codeine [CODEINE] Allergy Intermediate VOMIT Verified 02/03/25 10:17 Review of Systems 2 Review of Systems: Constitutional : No Fever, No Chills, No Fatigue ENT/Mouth : No sore throat, No Rhinorrhea Eyes: No Eye Pain, No Swelling, No Redness Cardiovascular : No Chest Pain, No SOB, No Dyspnea on Exertion Respiratory : No Cough, No Sputum Gastrointestinal : No Nausea, No Vomiting, No Diarrhea, No abdominal Pain Genitourinary : No Dysuria, No Urinary Frequency, No Hematuria, Musculoskeletal : No joint pain, No Myalgias, No Joint Swelling, pos neck pain Skin : No Skin Lesions, No rash Neuro : No Weakness, No Numbness, No Dizziness, positive Headache All other systems reviewed and are negative [facility] Past Medical History Attestation statement: The following information was validated with the patient. 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 Hypertension Hypothyroid Breast cancer Surgical History History of surgery History of surgery H/O bilateral mastectomy Family History Family History Father CAD (coronary artery disease) Mother Cervical cancer Social History Social History Housing: House Alcohol intake: never Patient Tobacco Use Status: Never used Tobacco Smoked in Last 30 Days: No e-Cigarette/Vaping Use: Never Used Second Hand Smoke Exposure: No Use of substances other than those prescribed or required for medical reasons: No Advance Directives: No Advance Directives Information Provided: Yes service: No Current occupational status: employed Current occupation: [employer] Current occupational exposures/hazards: No Cognitive needs: No Hearing needs: No Vision needs: Yes (glasses) Physical Exam ED Vital Signs: Vital Signs - 24 hr 02/03/25 10:14 02/03/25 11:26 02/03/25 12:51 Temperature 98 F Pulse Rate 75 59 55 Respiratory Rate 18 16 14 Blood Pressure 122/74 146/73 H 149/63 H Pulse Oximetry 99 100 97 Oxygen Delivery Method Room Air Room Air Room Air 02/03/25 14:10 Temperature Pulse Rate 55 Respiratory Rate 14 Blood Pressure 155/54 H Pulse Oximetry 97 Oxygen Delivery Method Room Air BMI result Body Mass Index 31.2 Appearance: Alert. Oriented X3. No acute distress. Eyes: Pupils equal, round and reactive to light. ENT: Pharynx normal. R synagogue is sore over artery but it is not engorged or swollen Neck: Normal inspection. Neck supple. no bruit noted, no meningeal signs CVS: Normal heart rate and rhythm. Pulses normal. Respiratory: No respiratory distress. Breath sounds normal. Abdomen: Soft and nontender. Skin: Skin warm and dry. Normal skin color. Normal skin turgor. Extremities: No lower extremity edema. No calf ttp Neuro: Oriented X 3. No motor deficit. No sensory deficit. CN2-12 intact normal gait no ataxia Course Course Course Narrative: This is a rapid medical exam performed by Linda Belcher NP: Additional HPI, ROS, PE not included below will be deferred to primary provider. Patient is a 59-year-old female with history of ductal carcinoma in situ of bilateral breasts, HLD, HTN, hypothyroidism, migraines, VALARIE, fibromyalgia presenting with complaint of neck and back pain, migraines. Reports hx of arthritis to neck and back, often has popping. States that her neck popped a few days ago, has had migraine since, specifically to right synagogue. Rates pain at 5plus /10. Cannot find position of comfort. Medications Administered Discontinued Medications Generic Name Dose Route Start Last Admin Trade Name Saritha PRN Reason Stop Dose Admin Iohexol 100 ml 02/03/25 12:30 02/03/25 12:30 Iohexol 350 Mg/Ml 100 Ml Infus..Btl IV 02/03/25 12:31 70 ml ONCE ONE Administration Morphine Sulfate 4 mg 02/03/25 11:18 02/03/25 11:33 Morphine Sulfate 4 Mg/Ml Cartridge IVPUSH 02/03/25 11:19 4 mg ONCE ONE Administration Protocol Ondansetron HCl 4 mg 02/03/25 11:18 02/03/25 11:25 Ondansetron Hcl 4 Mg/2 Ml Vial IVPUSH 02/03/25 11:19 4 mg ONCE ONE Administration Medical Decision Making Medical Decision Making [facility] Narrative: 59 yo female with PMH of neck arthritis, HTN, not on blood thinners now here with neck pain on R after turning and feeling a pop - she now has a severe headache as well she is NV intact her BP is normal - she is neurologically intact will obtain labs, CTA of head and neck for dissection given her complaint. IV morphine for pain Differential Diagnosis Differential Diagnoses: The differential diagnosis associated with the presentation includes strain, arteritis, nerve impingement, dissection Admission/Observation Consideration of admission/observation: Escalation of care including admission/observation considered CTA negative neuro intact doubt dissection/SAH concern for possible GCA will start steroid taper she will call PCP and follow up by Friday Lab Data [facility] Lab Attestation statement: I reviewed the patient's lab results. 02/03/25 11:05 02/03/25 11:05 Labs: Lab Results 02/03/25 Range/Units 11:05 WBC 5.1 (4.8-10.8) X10*3/uL RBC 4.46 (4.20-5.50) X10*6/uL Hgb 13.8 (12.0-16.0) g/dl Hct 39.7 (37.0-47.0) % MCV 89.0 (80.0-98.0) fL MCH 30.9 (27.0-33.0) pg MCHC 34.8 (31.0-35.0) g/dl RDW 11.9 (11.0-16.0) % Plt Count 231 (160-400) X10*3/uL MPV 8.8 L (9.4-12.3) fL Immature Gran % (Auto) 0.2 (0.0-0.4) % Neut % (Auto) 63.0 (45-73) % Lymph % (Auto) 29.3 (20-40) % Rush % (Auto) 5.1 (2-11) % Eos % (Auto) 1.8 (0-4) % Baso % (Auto) 0.6 (0-2) % Lymph # (Auto) 1.5 (1.2-4.9) X10*3/uL Rush # (Auto) 0.3 (0.1-1.2) X10*3/uL Eos # (Auto) 0.1 (0.0-0.4) X10*3/uL Baso # (Auto) 0.0 (0.0-0.2) X10*3/uL Abs Immat Gran (auto) 0.01 (0.00-0.03) X10*3/uL Absolute Neuts (auto) 3.2 (2.0-8.3) x10*3/uL Absolute Nucleated RBC 0.000 (0.0-0.012) X10*3/uL Nucleated RBC % (auto) 0.0 (0.0-0.2) /100WBC ESR 14 (0-20) MM/HR Sodium 141 (135-145) mmol/L Potassium 4.1 (3.3-5.1) mmol/L Chloride 101 (96-108) mmol/L Carbon Dioxide 31 H (22-29) mmol/L Anion Gap 13 (12-20) BUN 15 (9-16) mg/dL Creatinine 1.12 (0.5-1.4) mg/dL Estim Creat Clear Calc 44.9 Estimated GFR 49 Random Glucose 99 (60-115) mg/dL Calcium 10.0 (8.4-10.2) mg/dL Magnesium 2.2 (1.6-2.6) mg/dL Independent Interpretation I performed an independent interpretation of an: CT Scan (no ICH, dissection) Radiology Impression Discussion of test interpretation with radiology: I have reviewed the radiologist's reading. External Record Review External record reviewed: Outpatient record Prescription Management I considered prescription management with: Pain Medication and Other Discharge Plan Discharge Clinical Impression: Acute headache Qualifiers: Headache type: unspecified Intractability: not intractable Qualified Code(s): R 51.9 - Headache, unspecified Acute strain of neck muscle Qualifiers: Encounter type: initial encounter Qualified Code(s): S16.1XXA - Strain of muscle, fascia and tendon at neck level, initial encounter Patient Disposition: Home, Self-Care Instructions: Cervical Strain (ED), Acute Headache (ED) Additional Instructions: your labs are reassuring. your CT scan is reassuring as well there is a concern for temporal arteritis based off your exam though your inflammatory ESR marker is negative at this time you need to see your doctor by Friday or Friday to reassess. take steroids with food CTA NECK: 1. 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 2. No significant stenosis, occlusion, dissection, or aneurysm of the major cervical arterial vasculature. 3. 5 mm right upper lobe nodule, nonspecific. One-year follow-up recommended in a high-risk patient. CTA HEAD: 1. No evidence of significant stenosis, occlusion, dissection, or aneurysm of the major intracranial arterial vasculature. 2. Anatomic variation as discussed. 3. Patent cortical and dural venous sinuses. Prescriptions: New prednisone 10 mg tablet 10 mg PO DIRECTED Qty: 41 0RF Rx Instructions: see taper instructions 60mg on day 1-5, 40mg on day 6, 30mg on day 7, 20mg on day 8, 10mg on day 9, 5mg on day 10 hydrocodone-acetaminophen 5-325 mg tablet 1 tab PO Q6H PRN (Reason: pain) Qty: 10 0RF Rx Instructions: partial fill okay; Partial Fill upon patient request. lidocaine 5 % adhesive patch,medicated 1 patch topical DAILY Qty: 30 0RF Rx Instructions: leave on most painful area for up to 12 hrs ondansetron 4 mg tablet,disintegrating 4 mg PO Q8H PRN (Reason: nausea and vomiting) Qty: 20 0RF No Action sumatriptan succinate 25 mg tablet 25 mg PO Q2-4H PRN (Reason: migraine headache) 30 Days Qty: 9 0RF Rx Instructions: do not exceed 8 doses per 24 hrs lisinopril 10 mg tablet 10 mg PO DAILY 90 Days Qty: 90 1RF trazodone 50 mg tablet 50 mg PO BEDTIME PRN (Reason: for insomnia) Qty: 90 3RF levothyroxine 50 mcg tablet 50 mcg PO DAILY Qty: 90 3RF citalopram 20 mg tablet 20 mg PO DAILY Qty: 90 1RF gabapentin 300 mg capsule 300 mg PO TID PRN (Reason: for pain) 90 Days Qty: 270 1RF tizanidine 4 mg tablet 4 mg PO Q8H PRN (Reason: muscle spasticity) 30 Days Qty: 90 0RF Rx Instructions: Start at bedtime as medication can be sedating. Stand Alone Forms: Work/School Release Print Language: Faroese
[2025-02-03 11:09] LABS: MANUAL DIFF FLAG NO
[2025-02-03 11:11] LABS: Basophils Percent Auto 0.6 % (0-2); Eosinophils Absolute Auto 0.1 X10*3/uL (0.0-0.4); Eosinophils Percent Auto 1.8 % (0-4); Hematocrit 39.7 % (37.0-47.0); Hemoglobin 13.8 g/dl (12.0-16.0); Imm Gran Abs Auto 0.01 X10*3/uL (0.00-0.03); Imm Gran Pct Auto 0.2 % (0.0-0.4); Lymphocytes Absolute Auto 1.5 X10*3/uL (1.2-4.9); Lymphocytes Percent Auto 29.3 % (20-40); Mean Corpuscular HGB Conc 34.8 g/dl (31.0-35.0); Mean Corpuscular Hemoglobin 30.9 pg (27.0-33.0); Mean Platelet Volume 8.8 fL (9.4-12.3); Monocytes Absolute Auto 0.3 X10*3/uL (0.1-1.2); Monocytes Percent Auto 5.1 % (2-11); Neutrophils Absolute Auto 3.2 x10*3/uL (2.0-8.3); Platelet Count 231 X10*3/uL (160-400); Red Blood Count 4.46 X10*6/uL (4.20-5.50); Red Cell Distribution Width 11.9 % (11.0-16.0); White Blood Count 5.1 X10*3/uL (4.8-10.8)
[2025-02-03 11:24] LABS: Anion Gap 13 (12-20); Blood Urea Nitrogen 15 mg/dL (9-16); Carbon Dioxide 31 mmol/L (22-29); Chloride 101 mmol/L (96-108); Creatinine Clr Calc Pharmacy 44.9; Estimated Glomerular Filt Rate 49; Glucose Random 99 mg/dL (60-115); Magnesium 2.2 mg/dL (1.6-2.6); Potassium 4.1 mmol/L (3.3-5.1); Sodium 141 mmol/L (135-145)
[2025-02-03] MEDS: ondansetron HCL 4 MG/2 ML VIAL IVPUSH (11:25)
[2025-02-03 11:26] VITALS: BP 146/73; PULSE 59; RESP 16; O2SAT 100
[2025-02-03] MEDS: Morphine Sulfate 4 MG/ML CARTRIDGE IVPUSH (11:33)
[2025-02-03 12:07] LABS: Erythrocyte Sedimentation Rate 14 MM/HR (0-20)
[2025-02-03] MEDS: iohexoL 350 MG/ML 100 ML INFUS..BTL IV (12:30)
[2025-02-03 12:51] VITALS: BP 149/63; PULSE 55; RESP 14; O2SAT 97
[2025-02-03 14:10] VITALS: BP 155/54; PULSE 55; RESP 14; O2SAT 97
[2025-02-03 14:40] VITALS: BP 150/60; PULSE 55; RESP 14; TEMP 37.1; O2SAT 97
== END 2025-02-03 14:40 | disposition home or self-care (01) ==
PROVIDERS: Emergency Provider Emergency Medicine; PCP Physician Assistant
DX: R51.9 Headache, unspecified (principal); S16.1XXA Strain of muscle, fascia and tendon at neck level, initial encounter; X50.1XXA Overexertion from prolonged static or awkward postures, initial encounter; I10 Essential (primary) hypertension; E78.5 Hyperlipidemia, unspecified; E03.9 Hypothyroidism, unspecified; Y93.9 Activity, unspecified; Y92.9 Unspecified place or not applicable; Y99.9 Unspecified external cause status
CPT/HCPCS: 36415; 70496; 70498; 80048; 83735; 85025; 85652; 96374; 96375; 99284; J2270; J2405; Q9967

== ENCOUNTER → 2025-02-03 10:44 | Outpatient (BNV) | payer BC, SELFPAY | PROVIDERS: Emergency Provider Emergency Medicine; PCP Physician Assistant; Visit Provider Radiology Diagnostic Radiology | DX: R51.9 Headache, unspecified (principal); M54.2 Cervicalgia | CPT/HCPCS: 70496; 70498 ==

== ENCOUNTER 2025-02-11 07:49 | Outpatient (AMB) | payer BC, SELFPAY ==
[2025-02-11 07:59] VITALS: BP 130/70; PULSE 59; O2SAT 98; BMI 32.3
--- NOTE | 2025-02-11 07:59 | A.OFFPC_ITS ---
Vital Signs 02/11/25 07:59 Height 4 ft 11 in Weight 160 lb BMI 32.3 BP 130/70 Blood Pressure Location Lt brachial Position Sitting Pulse 59 Pulse Source Pulse Oximeter Pulse Oximetry (%) 98 Oxygen Delivery Method Room Air Intake Visit Reasons: acute headache tieble arthritis Allergies codeine [CODEINE] Allergy (Intermediate, Verified 02/11/25 07:59) VOMIT Medication List - Last Reconciled 02/11/25 by Agnes Jade NP citalopram 20 mg PO DAILY gabapentin 300 mg PO TID PRN 90 days levothyroxine 50 mcg PO DAILY lisinopril 10 mg PO DAILY 90 days prednisone 10 mg PO DIRECTED sumatriptan succinate 25 mg PO Q2-4H PRN 30 days tizanidine 4 mg PO Q8H PRN 30 days trazodone 50 mg PO BEDTIME PRN Tobacco use date assessed: 10/20/24 Dental Screening Dental Screen Date: 10/20/24 HPI HPI Comments History of Present Illness Details 59 y/o Female patient who [facility] for EDF. 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 She was admitted at [facility] on 02/03/25 for an evaluation and treatment of possible Giant Cell Arteritis and Severe chronic Neck pain. CT neck/Head unremarkable. She was started on Prednisone and pain medications. She was discharged home the same day in stable condition. For chronic Neck pain - used to f/u with Pain management in the past - had Steroid injections on the neck with good relief. Patient milka like another referral to Pain management. 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 Hypertension Hypothyroid Breast cancer Surgical History History of surgery History of surgery H/O bilateral mastectomy Family History Father CAD (coronary artery disease) Mother Cervical cancer Social History Housing: House Alcohol intake: never Patient Tobacco Use Status: Never used Tobacco Tobacco use type: Cigarette e-Cigarette/Vaping Use: Never Used Second Hand Smoke Exposure: No service: No Current occupational status: employed 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 1. Little interest or pleasure in doing things: not at all 2. Feeling down, depressed, or hopeless: not at all 3. Trouble falling or staying asleep, or sleeping too much: more than half the days 4. Feeling tired or having little energy: more than half the days 5. Poor appetite or overeating: not at all 6. Feeling bad about yourself - or that you are a failure or have let yourself or your family down: not at all 7. Trouble concentrating on things, such as reading the newspaper or watching television: not at all 8. Moving or speaking so slowly that other people could have noticed. Or the opposite - being so fidgety or restless that you have been moving around a lot more than usual: not at all 9. Thoughts that you would be better off or of hurting yourself in some way: not at all Total score: 4 Depression Screening Interpretation: Positive Depression Screening Done: Yes Source: Developed by Drs. Eugene Chua, Adela Pelayo, Selvin Thornton and colleagues, with an educational christi from [employer]. Thrive Questionnaire Date Thrive assessed: 02/06/25 I am a: Patient What is your living situation today?: I have a steady place to live Within the past 12 months, did the food you bought not last and you didn't have the money to get more?: Never true Within the past 12 months, did you worry whether your food would run out before you got money to buy more?: Never true Do you have trouble paying for medicines?: No Do you have trouble getting transportation to medical appointments?: No Do you have trouble paying your heating and electricity bill?: No Do you have trouble taking care of your child, family member or friend?: No Do you have trouble with day-to-day activities such as bathing, preparing meals, shopping, managing finances, etc.?: No Are you currently unemployed and looking for a job?: No Are you interested in more education?: No Please select the resources that you would like help with: None Currently or been in a relationship where the following occur: No concerns reported THRIVE Score: 0 AUDIT C Alcohol Use Questionnaire (AUDIT-C) 1. How often do you have a drink containing alcohol?: Never 3. How often do you have six or more drinks on one occasion?: Never Total Score: 0 VALARIE-7 AMB Questionnaire VALARIE-7 Date VALARIE - 7 assessed: 10/20/24 Feeling nervous, anxious, or on edge: 0 = Not at all Not being able to stop or control worryin = Not at all Worrying too much about different things: 1 = Several days Trouble relaxin = Several days Being so restless that it is hard to sit still: 0 = Not at all Becoming easily annoyed or irritable: 0 = Not at all Feeling afraid as if something awful might happen: 0 = Not at all Total VALARIE-7 score (0-4 normal; 5-9 mild; 10-14 moderate; 15-21 severe): 2 Source: Developed by Drs. Eugene Chua, Adela Pelayo, Selvin Thornton and colleagues, with an educational christi from [employer]. Review of Systems Const All systems reviewed & are unremarkable except as noted in HPI and below Physical exam (Primary Care) Vital Signs: Last Vital Signs Pulse 59 02/11/25 07:59 BP 130/70 02/11/25 07:59 Pulse Ox 98 02/11/25 07:59 Oxygen Delivery Method Room Air 02/11/25 07:59 BMI result Body Mass Index 32.3 Tobacco/Smoking Status: Tobacco use Status Tobacco use date assessed 10/20/24 02/11/25 08:02 Patient Tobacco Use Status Never used Tobacco 02/11/25 08:02 Tobacco use type Cigarette 02/11/25 08:02 e-Cigarette/Vaping Use Never Used 02/11/25 08:02 PHQ-9: PHQ-9 Score PHQ-9: Total score 4 02/11/25 08:02 Depression Screening Interpretation: Positive Thrive Assessment: Date of Thrive Assessment Date Thrive assessed 02/06/25 02/11/25 08:02 Currently or been in a relationship where the following occur: No concerns reported Const General: no acute distress Nutritional Appearance: well nourished Orientation/consciousness: patient oriented x3 HENMT Head: Yes normocephalic Neck Neck: Yes full ROM, Yes no lymphadenopathy, Yes trachea midline and Yes supple Resp Effort & Inspection: normal respiratory effort Auscultation: clear to auscultation bilaterally Cardio Heart sounds: S1 normal heart sound present and S2 normal heart sound present Back/Spine/Pelvis Cervical Spine: cervical ROM normal, cervical muscular tenderness and Cervical spine tenderness Neuro General: patient oriented x3 Coding Level of Care Code Est Pt Level 4 (09292) Diagnoses Cervical radiculopathy M54.12 Giant cell arteritis M31.6 Time Spent (min) 20 Assessment & Plan Assessment & Plan (1) Cervical radiculopathy: Code(s): M54.12 - Radiculopathy, cervical region Category: Medical Plan: Referral placed to Pain management. NSAIDs and Acetaminophen for pain relief. (2) Giant cell arteritis: Code(s): M31.6 - Other giant cell arteritis Category: Medical Plan: Resolved for now. Orders: Referrals Pain Management Referral M54.12 - Radiculopathy, cervical region Medications: Discontinued hydrocodone-acetaminophen 5-325 mg partial fill okay; Partial Fill upon patient request. Discontinued Reason: Patient Completed Course 1 tab PO Q6H PRN 10 tabs 0RF pain lidocaine 5% leave on most painful area for up to 12 hrs Discontinued Reason: No Longer Medically Relevant 1 patch topical DAILY 30 ea 0RF ondansetron Discontinued Reason: Patient no longer taking 4 mg PO Q8H PRN 20 tabs 0RF nausea and vomiting
== END 2025-02-11 09:33 | disposition home or self-care (01) ==
LOC: HO.HMCH 07:50
PROVIDERS: PCP Physician Assistant; Visit Provider Nurse Practitioner Family
DX: M54.12 Radiculopathy, cervical region (principal); M31.6 Other giant cell arteritis

== ENCOUNTER → 2025-02-11 07:49 | Outpatient (BNVA) | payer BC, SELFPAY | PROVIDERS: PCP Physician Assistant; Visit Provider Nurse Practitioner Family | DX: Z13.89 Encounter for screening for other disorder (principal) ==

== ENCOUNTER 2025-02-17 13:14 | Outpatient (AMB) | payer BC, SELFPAY ==
[2025-02-17 13:30] VITALS: BMI 32.3
--- NOTE | 2025-02-17 13:30 | MHC.OFFVIS ---
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 Started 2 weeks ago as a different type of headache in the right rastafarian area from the base of her head. Vitamin Manager Required: No Accompanied by: Self / Same As Patient Allergies codeine [CODEINE] Allergy (Intermediate, Verified 02/17/25 13:33) VOMIT HPI HPI BILINGUAL OFFICE ASSISTANT/Temp Arteritis eval: Details: The patient is a 59-year-old female presenting with a severe headache and a need for vascular evaluation. The headache began approximately 10 days ago, described as originating from the back of the skull, progressing to a severe intensity prompting ER evaluation. A concern for giant cell arteritis has been raised due to the presentation of symptoms including chronic neck pain and blurry vision. The patient has not experienced any vision loss but notes long-standing blurry vision. During the prior medical evaluations, concerns regarding her kidney function were highlighted. She denies a history of smoking, diabetes, or using blood thinners, and there is no noted improvement in symptoms with treatment efforts thus far. 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 Hypertension Hypothyroid Breast cancer Surgical History History of surgery History of surgery H/O bilateral mastectomy Family History Father CAD (coronary artery disease) Mother Cervical cancer Social History Housing: House Alcohol intake: never Patient Tobacco Use Status: Never used Tobacco Tobacco use type: Cigarette e-Cigarette/Vaping Use: Never Used Second Hand Smoke Exposure: No service: No Current occupational status: employed 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 Current occupational exposures/hazards: No Cognitive needs: No Hearing needs: No Vision needs: Yes (glasses) Review of Systems Const All systems reviewed & are unremarkable except as noted in HPI and below Reports no additional complaints ENT Reports Normal hearing present Card Denies chest pain, Denies chest pain at rest, Denies chest pain with activity and Denies pedal edema Resp Denies cough GI Denies abdominal pain Musc Denies abnormal gait, Denies muscle cramps and Denies radiating pain into limb Skin/Breast Denies skin ulcer and Denies wounds Neuro Reports Normal hearing present and Denies abnormal gait Psych Reports no additional complaints Physical Exam Vital Signs: BMI result Body Mass Index 32.3 Const General: cooperative, healthy appearing and comfortable Orientation/consciousness: oriented to person, oriented to place and oriented to time HEENT Head: Yes normal to inspection Neck Neck: Yes normal visual inspection Carotids: no bruits Chest Chest palpation & inspection: normal inspection of the chest Resp Effort & Inspection: normal respiratory effort and able to speak in complete sentences Auscultation: clear to auscultation bilaterally, no crackles, no rales, no rhonchi and no wheezes Cardio Rate: regular rate Rhythm: regular rhythm Heart sounds: S1 normal heart sound present and S2 normal heart sound present Bruits: no carotid bruits Peripheral pulses: Peripheral pulses 2+ throughout GI Inspection: Yes normal to inspection Skin Wounds: no wounds Hair: normal Neuro General: oriented to person, oriented to place and oriented to time Cranial nerves: Yes CN's II-XII intact bilaterally and Yes Normal hearing present Cognition (Neuro): normal cognition Motor exam (neuro): 5/5 motor strength present throughout Extrem Other: venous exam: No significant superficial varicosities or spider telangiectasias, minimal edema General: No clubbing, No cyanosis and No edema Psych Appearance: grossly normal Mental Status: mental status grossly normal Speech and movement: Normal speech and movement present Results Reviewed Results Reviewed: ESR of 14 Assessment & Plan Assessment & Plan (1) Giant cell arteritis: Code(s): M31.6 - Other giant cell arteritis Category: Medical Plan: In short patient has right-sided temporal headaches. She will require right temporal artery biopsy. A temporal artery biopsy will be conducted to evaluate for giant cell arteritis due to the patient's severe headache and associated symptoms. The procedure will take place in the OR with sedation, and the incision will be made in front of the ear to obtain a section of the temporal artery for pathology. The patient is advised to arrange transport and understands the procedural risks, benefits, and alternatives, consenting to proceed anticipating pathology results within a week. Patient was informed and verbally consented to the use of an ambient scribe for clinic note documentation during this visit. Patient Instructions: - Arrange transport for the procedure day as sedation will be administered. - Anticipate some discomfort and potential temporary hair loss at the biopsy site. - Await pathology results, expected within three to five days post-procedure. - Follow up as directed for biopsy results and further management. - Report any significant changes in symptoms or new concerns promptly. Coding Level of Care Code New Pt Level 4 (83156) Diagnoses Giant cell arteritis M31.6
== END 2025-02-17 14:18 | disposition home or self-care (01) ==
LOC: HO.HVS 13:15
PROVIDERS: PCP Physician Assistant; Visit Provider Surgery Vascular Surgery
DX: M31.6 Other giant cell arteritis (principal)
CPT/HCPCS: 99204

== ENCOUNTER 2025-02-21 09:02 | Outpatient (REF) | payer BC, SELFPAY ==
--- NOTE | ~2025-02-21 | XR_ITS ---
CLINICAL HISTORY: M47.812 - Spondylosis without myelopathy or radiculopathy, cervical region 8 views cervical spine Comparison: None Findings: Normal alignment. No acute fractures or dislocation. Disc space narrowing and endplate osteophyte formation at C5-C6 and C6-C7. Multilevel facet arthropathy with moderate neural foraminal stenosis at C6-C7 on the left, mild neural foraminal stenosis at C4-C5 on the right, moderate neural foraminal stenosis at C5-C6 on the right and severe neural foraminal stenosis at C6-C7 on the right. Prevertebral soft tissues within normal limits. IMPRESSION: Multilevel degenerative changes as above. This document has been electronically signed by: Gee Ford MD on 02/21/2025 18:33:12
== END 2025-02-21 09:03 | disposition home or self-care (01) ==
LOC: HO.XRAY 09:02
PROVIDERS: PCP Physician Assistant; Referring Provider Nurse Practitioner Family; Visit Provider Nurse Practitioner Family
DX: M50.30 Other cervical disc degeneration, unspecified cervical region (principal); M47.812 Spondylosis without myelopathy or radiculopathy, cervical region
CPT/HCPCS: 72052

== ENCOUNTER 2025-02-21 09:02 | Outpatient (AMB) | payer BC, SELFPAY ==
--- NOTE | 2025-02-21 09:06 | A.OFFVIS_ITS ---
Vital Signs 02/21/25 09:09 Height 4 ft 11 in Weight 155 lb 6 oz BMI 31.4 BP 159/74 H Blood Pressure Location Rt brachial Position Sitting Pulse 72 Pulse Source Pulse Oximeter Pulse Oximetry (%) 100 Oxygen Delivery Method Room Air Intake Visit Reasons: Cervical Radiculopathy BALDEV 11/28/23 Intake Note: Pain today 12/23 Housefellow Required: No Accompanied by: Self / Same As Patient Allergies codeine [CODEINE] Allergy (Intermediate, Verified 02/21/25 09:10) VOMIT Medication List - Last Reconciled 02/21/25 by ROCÍO Briscoe citalopram 20 mg PO DAILY gabapentin 300 mg PO TID PRN 90 days levothyroxine 50 mcg PO DAILY lisinopril 10 mg PO DAILY 90 days sumatriptan succinate 25 mg PO Q2-4H PRN 30 days tizanidine 4 mg PO Q8H PRN 30 days trazodone 50 mg PO BEDTIME PRN HPI Comments Details: The patient is a 59-year-old female presenting with neck pain, history of fibromyalgia and right temporal headaches since 02/01/25 after she turned her neck to the right and felt a pop. Since then she has had R sided headache and lutheran pain which prompted her to go to [facility] on . She was treated with prednisone and Vicodin, with continued right sided headache. The neck pain has been chronic but recently worsening with associated movement restriction, specifically when turning to the left, and involves frequent popping sensation. This issue arose months prior, with possible exacerbation due to underlying cervical spondylosis. Accompanying symptoms include an audible cracking sound and discomfort when the neck is moved. Neck pain radiates to left upper extremities up to the wrist with intermittent tingling in thumb. Patient completed physical therapy last year with minimal improvement. Denies previous cervical spine surgery or injections. The temporal headaches, which differ from the patient's usual migraines, are currently being evaluated by Dr. [facility] for giant cell arteritis and plans for temporal biopsy on 02/24/25. CTA imaging were reviewed with patient today, noted below. Changes in the patient's kidney function, with a GFR of 49, possibly exacerbated by previous NSAID use, were identified alongside the chronic management of hypertension and will proceed with Nephrology evaluation. - Pain initiated months ago, accompanying neck movement with a significant audible popping sound. - Primarily located in the left cervical region with spinal movement restriction and muscle spasms. - Exacerbated by head rotation to the left and backward extension. - Pain alleviated occasionally by warmth application. - Right temporal headaches, differing from migraines, initiated weeks prior, reportedly severe. - Associated increase in blood pressure noted, potentially influencing headache severity. - Affect: Right temporal headaches and neck pain significant enough to impact m ood. - Analgesia: Currently utilizing gabapentin with noted reduction in symptoms, Vicodin for headache relief previously, minimal use of NSAIDs. - Adverse Effects: No adverse effects from current analgesic regimen reported. - Activities of Daily Living: Pain restricts certain neck movements, impacting daily activities. - Aberrant Drug Related Behaviors: No signs of medication misuse. PRIOR: Patient presents today for follow up for medication review and refill. She was last seen in our office in September 2022. Patient is 1 year 3 months s/p bilateral sacroiliac joint RFA procedures with ongoing 60-70% pain relief, improved functioning, mobility, sleep and social interactions. She had right ankle sprain in September, and was followed by [facility]. Patient reports she has been taking gabapentin with good tolerance and no side effects for her chronic pain generators. She notes SIJ pain has been low but she intermittently gets tightness in her groin and lateral hips, right>work. Patient is interested to repeat sacroiliac joint RFA when her symptoms return to baseline. She is also aware of neuromodulation options and therapeutic injections. Denies any recent cough, cold, infection, fever, any significant changes in her medical history, medications or recent hospitalizations. Past Procedures: 10/07/22: Right GTB steroid injection-70% pain relief 09/06/22: Left SIJ RFA-70% pain relief 08/23/22: Right SIJ RFA-60% pain relief 08/02/22: Bilateral SIJ Innervation [id number]-85-99% pain relief for 3 days 05/07/22: Bilateral intra-articular SIJ injections with steroids- 50% pain relief for 1 week PRIOR: Patient presents today for follow up after PT and medication review. Unfortunately, due to high copays for PT, patient was not been able to start PT and has been doing stretching exercises on her own. Patient states she is trying to work out financial concerns with PT office and her insurance and is hopeful to start PT soon, especially for her ongoing neck pain. She reports tizanidine and gabapentin have been effective, well tolerates and no noted side effects except drowsiness with muscle relaxant which she is mainly takes at bedtime. Patient also has been taking Tylenol and NSAIDs with minimal pain relief. She requests refill for gabapentin. Patient continues to reports fibromyalgia, neck pain, left hip and bilateral SI joint pain, left side worse than right. We reviewed her xray imaging which is consistent with bilateral sacroiliitis. Today we discussed SIJ innervation, SIJ fusion, neuromodulation and ablation as well diagnostic and therapeutic intra- articular SIJ injections. Patient is interested to proceed with bilateral therapeutic SIJ injections at this time. PRIOR: Patient is a pleasant 56 years old female presents today for initial evaluation of multiple pain generators, including fibromyalgia, chronic left hip and ankle, left posterior thigh and left leg, neck, bilateral shoulders and hands pain. Denies any recent trauma, injury, or falls. She had multiple ER visits for multiple pain generators. Patient reports most concerning pain is the left hip that gives out at times. Pain exacerbated with prolonged sitting, walking, weight bearing, climbing stairs. Patient reports she is unable to lay on her left side due to pain. She states the pain is interfering with her sleep, activities, mood, quality of life, daily living and she cannot function normally. Patient works in a [employer] and walks over 8 miles per shift which significantly aggravates her symptoms. She reports chronic neck pain with muscle spasms related to osteoarthritis that radiates to her both shoulders with intermittent bilateral hand numbness and aching. Patient had a fall over a year ago and had hyperextension of her right hand backwards. She is right hand dominant. Reports bilateral aching and numbness in her hands. Patient has been seen by orthopedic services and received left shoulder cortisone on 02/05/22 and left hip cortisone injection 2 weeks ago and diclofenac gel provided her short term pain relief. Recent imaging shows no concern for left hip or pelvic fracture or dislocation. She has bilateral sacroiliitis, which is consistent with her imaging findings and exam. Left shoulder imaging showed mild acromioclavicular osteoarthritis. Patient denies previous physical therapy, chiropractic manipulation, massage or TENS unit. She denies any fever, chills, malaise, abdominal pain, lower extremity numbness or tingling, weight changes, bladder/bowel dysfunction or saddle anesthesia. She reports intermittent weakness of her left leg and both hands.? 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 Hypertension Hypothyroid Breast cancer Surgical History History of surgery History of surgery H/O bilateral mastectomy Family History Father CAD (coronary artery disease) Mother Cervical cancer Social History Housing: House Alcohol intake: never Patient Tobacco Use Status: Never used Tobacco Tobacco use type: Cigarette e-Cigarette/Vaping Use: Never Used Second Hand Smoke Exposure: No service: No Current occupational status: employed 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 - Cardiovascular: Denies smoking, noted changes in blood pressure (recent elevation). - Neurological: Reports right temporal headaches with varying intensity. - Respiratory: Denies smoking; pulmonary nodule identified. - Renal: Reports changes in kidney function; recent GFR reduction noted. - Visual: Denies loss of vision, reports longstanding blurry vision. All systems reviewed & are unremarkable except as noted in HPI and below Physical Exam Vital Signs: Last Vital Signs Pulse 72 02/21/25 09:09 BP 159/74 H 02/21/25 09:09 Pulse Ox 100 02/21/25 09:09 Oxygen Delivery Method Room Air 02/21/25 09:09 BMI result Body Mass Index 31.4 General: Appears afebrile. Alert and oriented. Mood and affect appropriate. Follows and participates in conversation appropriately. Respiratory effort is unlabored. No cough. Able to transition from sit to stand unassisted. Ambulates with bilaterally normal heel strike and toe off. Eyes General: appearance normal, both eyes and all related structures Neck Other: Patient with decreased cervical ROM in all planes/especially with left lateral rotation. Reports increased pain with cervical flexion>extension. Spurling compression test equivocal. Pain is unchanged by Spurling maneuver with retraction. Elvey's tension test positive on the left, with radiation of pain from neck to wrist and into left thumb. Lhermitte's test was negative. DTR intact, +2 and symmetrical. Patient demonstrated 5/5 right and 4/5 left motor strength of bilateral upper extremities. 2 + radial pulses. Significant tightness throughout left upper trapezius as well as TTP throughout bilateral upper trapezius muscles. No paravertebral tenderness over facet joints bilaterally. Neck: Yes normal visual inspection, Yes no lymphadenopathy, Yes supple, No anterior neck swelling, Yes no JVD, No prominent supraclavicular fat pad and No prominent dorsocervical fat pad General: Yes no CVA tenderness Back/Spine/Pelvis Back: no CVA tenderness Cervical Spine: No collar present, cervical muscular tenderness, pain with cervical ROM, No Cervical spine scars present, cervical spasm (right), No Cervical spine tenderness and No step off deformity Thoracic/Lumbar Spine: thoracic and lumbar spine normal to inspection, Lasegue's sign negative, straight leg raise negative bilaterally, pain with thoraco- lumbar ROM, thoraco-lumbar ROM limited, No thoracic spinal tenderness and No lumbar spinal tenderness Extrem General: Yes capillary refill normal, Yes no clubbing, cyanosis or edema and Yes no calf tenderness Results Reviewed Results Reviewed: XR CERVICAL SPINE 09/06/2020 FINDINGS: Bone alignment is normal. No fracture or dislocation is seen. There is degenerative spondylosis and degenerative disc disease at C5-C6 and C6-C7. There is mild degenerative spondylosis at C4-C5. Prevertebral soft tissues are normal. IMPRESSION: Degenerative changes. CT ANGIOGRAM HEAD AND NECK 02/03/25 CLINICAL INFORMATION: Left-sided neck pain and headache. COMPARISON: None available. TECHNIQUE: Noncontrast axial imaging of the head was performed. This was followed by test bolus sequences and head and neck intravenous bolus administration 70 mL of Omnipaque 350. Helical imaging was performed in the axial plane from the aortic arch to the skull vertex. The data was processed at the hybrid technologist's workstation for generation of MIP sequences. Angled MIPs and volume rendered reformatted images were also generated at an offline 3D workstation. Stenoses are assessed in accordance with NASCET criteria unless otherwise indicated. This CT examination was performed using dose optimization techniques as appropriate, variously including the following: *Automated exposure control *Adjustment of mA and/or kV according to patient size (this includes techniques or standardized protocols for targeted exams where dose is matched to indication/reason for exam; i.e. extremities or head) *Use of iterative reconstruction technique FINDINGS: NONCONTRAST HEAD CT: There is no evidence of intracranial hemorrhage or extra-axial fluid collection. There is no mass effect, or edema. No CT evidence of acute territorial infarct. Ventricles, sulci, and cisterns are normal in size and configuration for patient age. No hydrocephalus. No midline shift. No significant white matter abnormalities. Normal pituitary. Globes and orbital contents image normally. No extracranial soft tissue abnormalities. The paranasal sinuses, mastoid air cells, and tympanic cavities are normally aerated. No suspicious bony abnormalities. NECK CTA: -AORTIC ARCH: Normal in caliber. Mild atheromatous calcification. Three-vessel branching pattern. -GREAT VESSEL ORIGINS: Widely patent. No stenosis. -RIGHT COMMON CAROTID ARTERY: Extremely short course. Extremely early bifurcation. Normal in caliber. -CERVICAL RIGHT INTERNAL CAROTID ARTERY: Extremely early bifurcation, just after the subclavian artery origin. Normal in course and caliber into the skull base. -LEFT COMMON CAROTID ARTERY: Normal in course and caliber to the level of the bifurcation. -CERVICAL LEFT INTERNAL CAROTID ARTERY: Normal opacification without focal stenosis or occlusion. -CERVICAL RIGHT VERTEBRAL ARTERY: Codominant. Normal origin. Normal in course and caliber into the skull base. -CERVICAL LEFT VERTEBRAL ARTERY: Codominant. Normal origin. Normal in course and caliber into the skull base. OTHER, SOFT TISSUES: -No lymphadenopathy or mass. No abnormal fluid collection or soft tissue swelling. -Normal thyroid. -Imaged superior mediastinal structures normal. -Imaged lung apices demonstrate a right upper lobe 5 mm nodule (series 9, image 117). Lung apices are otherwise clear. CTA OF THE BRAIN: -INTRACRANIAL INTERNAL CAROTID ARTERIES: No focal stenosis or occlusion. -RIGHT ANTERIOR CEREBRAL ARTERY: The A1 segment is extremely diminutive. The A2 segment is supplied by the left LAYLA. Normal arborization of the distal segments. -LEFT ANTERIOR CEREBRAL ARTERY: Normal A1 segment.. Normal arborization of the distal segments. -ANTERIOR COMMUNICATING ARTERY: Normal. -RIGHT MIDDLE CEREBRAL ARTERY: Normal M1 segment of the MCA without focal stenosis or occlusion. Normal bifurcation. Normal arborization of the distal segments. -LEFT MIDDLE CEREBRAL ARTERY: Normal M1 segment of the MCA without focal stenosis or occlusion. Normal bifurcation. Normal arborization of the distal segments. -RIGHT VERTEBRAL ARTERY V4: Normal in course and caliber. -LEFT VERTEBRAL ARTERY V4: Normal in course and caliber. -BASILAR ARTERY: Normal without focal stenosis or occlusion. Normal appearance of the proximal superior cerebellar arteries. Normal basilar tip. -RIGHT POSTERIOR CEREBRAL ARTERY: Normal P1 segment. Normal opacification of the distal CONSTRUCTION SAFETY CONSULTANT segments. -LEFT POSTERIOR CEREBRAL ARTERY: The P1 segment is diminutive. origin of the CONSTRUCTION SAFETY CONSULTANT with robust opacification of the posterior communicating artery. Normal opacification of the distal CONSTRUCTION SAFETY CONSULTANT segments. -POSTERIOR COMMUNICATING ARTERIES: Normal opacification of the superior sagittal, straight, transverse, and sigmoid sinuses. No venous thrombosis. No space-occupying hemorrhage or definite evolving infarct. IMPRESSION: NONCONTRAST HEAD CT: 1. No acute intracranial abnormality. CTA NECK: 1. 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 2. No significant stenosis, occlusion, dissection, or aneurysm of the major cervical arterial vasculature. 3. 5 mm right upper lobe nodule, nonspecific. One-year follow-up recommended in a high-risk patient. CTA HEAD: 1. No evidence of significant stenosis, occlusion, dissection, or aneurysm of the major intracranial arterial vasculature. 2. Anatomic variation as discussed. 3. Patent cortical and dural venous sinuses. XR CERVICAL SPINE 03/11/23 CLINICAL INFORMATION: Cervical radiculopathy COMPARISON: 09/06/2020 TECHNIQUE: 6 views of the cervical spine, inclusive of flexion and extension views, were obtained. FINDINGS: No acute fracture or subluxation. Vertebral body height and alignment maintained. Disc space narrowing at C5-C6 and C6-C7 with endplate osteophyte. Mild bony neuroforaminal narrowing at C5-C6 on the right. The atlantoaxial joint is well aligned. The dens is intact. The lung apices are clear. The prevertebral soft tissues are unremarkable. IMPRESSION: Mild degenerative changes of the lower cervical spine. Right bony neuroforaminal narrowing at C5-C6. Assessment & Plan Assessment & Plan (1) Cervical spondylosis: Code(s): M47.812 - Spondylosis without myelopathy or radiculopathy, cervical region Category: Medical (2) Degenerative disc disease, cervical: Code(s): M50.30 - Other cervical disc degeneration, unspecified cervical region Category: Medical (3) Cervical radiculopathy: Code(s): M54.12 - Radiculopathy, cervical region Category: Medical (4) Giant cell arteritis: Code(s): M31.6 - Other giant cell arteritis Category: Medical Plan The plan includes conducting additional diagnostic imaging for cervical spine to assess degree of degenerative changes, any subluxation, listhesis, compression fractures or pars defects and to assess for neural integrity and compression prior to interventional treatments. Patient is followed by [facility], Dr. Sandhu and is scheduled to undergo right temporal artery biopsy on 02/24/25 to confirm or rule out giant cell arteritis. Patient is interested in Nephrology consultation given reduced kidney function, she will continue with NSAID cessation and increased fluid intake. All questions and concerns have been answered and patient agreed with the plan. Follow up for MRI/xrays results and sooner as needed. Patient was informed and verbally consented to the use of an ambient scribe for clinic note documentation during this visit. Orders: Orders MR cervical spine wo con Today M47.812 - Spondylosis without myelopathy or radiculopathy, cervical region, M50.30 - Other cervical disc degeneration, unspecified cervical region, M54.12 - Radiculopathy, cervical region XR cervical spine min 6V Today M47.812 - Spondylosis without myelopathy or radiculopathy, cervical region, M50.30 - Other cervical disc degeneration, unspecified cervical region Referrals Nephrology Referral I10 - Essential (primary) hypertension, N18.31 - Chronic kidney disease, stage 3a Coding Level of Care Code Est Pt Level 4 (97259) Complex EM visit Add On G2211 Diagnoses Cervical spondylosis M47.812 Degenerative disc disease, cervical M50.30 Cervical radiculopathy M54.12 Giant cell arteritis M31.6
[2025-02-21 09:09] VITALS: BP 159/74; PULSE 72; O2SAT 100; BMI 31.4
== END 2025-02-21 09:42 | disposition home or self-care (01) ==
LOC: HO.PMC 09:03
PROVIDERS: PCP Physician Assistant; Referring Provider Nurse Practitioner Family; Visit Provider Nurse Practitioner Family
DX: M47.812 Spondylosis without myelopathy or radiculopathy, cervical region (principal); M50.30 Other cervical disc degeneration, unspecified cervical region; M54.12 Radiculopathy, cervical region; M31.6 Other giant cell arteritis
CPT/HCPCS: 99214

== ENCOUNTER → 2025-02-21 09:57 | Outpatient (BNV) | payer BC, SELFPAY | PROVIDERS: PCP Physician Assistant; Referring Provider Nurse Practitioner Family; Visit Provider Radiology Diagnostic Radiology | DX: M50.30 Other cervical disc degeneration, unspecified cervical region (principal) | CPT/HCPCS: 72052 ==

== ENCOUNTER 2025-02-24 08:15 | Day surgery (SDC) | payer BC, SELFPAY ==
[2025-02-24] VITALS (11 sets, daily range): BP systolic 119–147; BP diastolic 52–72; PULSE 60–68; RESP 14–18; TEMP 36.1–36.9; O2SAT 93–100; BMI 31.3
[2025-02-24] MEDS: Lactated Ringers 1,000 ML 80 ML IVCONT (08:57)
--- NOTE | 2025-02-24 10:05 | MHC.SHP ---
Pre-Procedural Eval Section A - 24 Hr Update-Section A only Date of Service: 02/24/25 The patient is an INPATIENT: No Changes since office visit: Yes Patient answered all questions The patient has been examined within 24 hours of the surgical procedure. The History & Physical has been completed within 30 days and I have reviewed it.: Yes Section B - Complete if H&P > 30 days Chief Complaint: Other giant cell arteritis Allergies: Allergies Allergy/AdvReac Type Severity Reaction Status Date / Time codeine [CODEINE] Allergy Intermediate VOMIT Verified 02/24/25 08:49 Plan I have reviewed the history and physical and performed a pertinent physical examination on my patient. No changes have occurred unless specified. Time Spent With Patient Time: Total time managing care of this patient today ____ minutes.
[2025-02-24] MEDS: ceFAZolin Sodium/Dextrose,Iso 2 GM/50 ML PIGGYBACK IV (10:35)
[2025-02-24] MEDS: fentaNYL citrate/PF 100 MCG/2 ML VIAL 25 MCG IVPUSH ×2 (10:44→10:50)
[2025-02-24] MEDS: Midazolam HCl 2 MG/2 ML VIAL 0.5 MG IVPUSH ×2 (10:44→10:50)
--- NOTE | 2025-02-24 12:36 | P.OP_ITS ---
Operative Note Operative Note Date of Service: 02/24/25 Narrative: Operative note by [facility] PREOPERATIVE DIAGNOSIS: Headache and vision changes POSTOPERATIVE DIAGNOSIS: Headache and vision changes PROCEDURE PERFORMED: Right temporal artery biopsy. SURGEON: Oliver Sandhu M.D. PLANT RELIABILITY ENGINEER: Florina ANESTHESIA: Local with moderate conscious sedation. Total intraservice moderate sedation time was 24 minutes. I monitored the patient's level of consciousness and physiologic status continuously throughout the procedure. ESTIMATED BLOOD LOSS: Less than 10 mL. COMPLICATIONS: None. SPECIMENS: superficial temporal artery INDICATIONS FOR PROCEDURE: The patient is a 59-year-old patient with a history of headaches. The patient was referred to us for temporal artery biopsy to rule out temporal arteritis. The risks and benefits of the procedure were explained to the patient. The patient agreed to go forward with the surgery. DESCRIPTION OF PROCEDURE: The patient came to the operating room and was placed in the supine position on the operating room table. Patient was prepped and draped in the standard surgical fashion. Local was administered. After anesthesia was obtained, a vertical incision was made behind the hairline, approximately 4 cm in length. This was carried down through the superficial tissues. The right superficial temporal artery was located superior to the temporalis fascia. The length of the artery was dissected free from the surr ounding tissues. A mosquito clamp was used on the inferior extent to cross-clamp the artery. Another mosquito clamp was used to cross-clamp the artery superiorly. Approximately, 2.5 cm of artery was then cut from the surrounding tissue with scissors. This was sent for permanent pathology to rule out temporal arteritis. Sutures of 4-0 silk were then used to tie the distal and proximal ends of the artery. The wound was then thoroughly irrigated. There was no further bleeding. The wound was then closed in layered fashion using 3-0 Vicryl stitches, deep. The skin edges were then reapproximated with 4-0 Monocryl. The surgery was then completed. The patient was returned to recovery neurologically intact with stable vitals. This note is constructed using voice recognition software. While every effort has been made to ensure accuracy, hat stock laminating machine operator errors may have been included. Thank you for allowing me to participate in the care of your patient. Yours sincerely, Oliver Sandhu MD, FACS, R.P.V.I.
== END 2025-02-24 12:06 | disposition home or self-care (01) ==
PROVIDERS: PCP Physician Assistant; Visit Provider Surgery Vascular Surgery
PROC: (CPT 37609; principal; 2025-02-24 10:00)
DX: R51.9 Headache, unspecified (principal); H53.8 Other visual disturbances; G89.29 Other chronic pain; M54.2 Cervicalgia; I10 Essential (primary) hypertension; Z85.3 Personal history of malignant neoplasm of breast; Z90.13 Acquired absence of bilateral breasts and nipples; Z79.899 Other long term (current) drug therapy; Z88.5 Allergy status to narcotic agent; Z98.890 Other specified postprocedural states
CPT/HCPCS: 37609; 88305; J0690; J2003; J2250; J2795; J3010

== ENCOUNTER → 2025-02-24 08:15 | Outpatient (BNV) | payer BC, SELFPAY | PROVIDERS: PCP Physician Assistant; Visit Provider Surgery Vascular Surgery | DX: R51.9 Headache, unspecified (principal) | CPT/HCPCS: 37609 ==

== ENCOUNTER 2025-03-07 09:08 | Outpatient (AMB) | payer BC, SELFPAY ==
[2025-03-07 09:22] VITALS: BP 96/70; PULSE 67; O2SAT 97; BMI 31.1
--- NOTE | 2025-03-07 09:22 | HO.NEPHOV ---
Vital Signs 03/07/25 09:22 Height 4 ft 11 in Weight 154 lb BMI 31.1 BP 96/70 Blood Pressure Location Lt brachial Position Sitting Pulse 67 Pulse Source Pulse Oximeter Pulse Oximetry (%) 97 Oxygen Delivery Method Room Air Intake Visit Reasons: INP: CKD Eyeglass Lens Generator Required: No Accompanied by: Self / Same As Patient Allergies codeine (CODEINE) Allergy (Intermediate, Verified 03/07/25 09:25) VOMIT Medication List - Last Reconciled 03/07/25 by Hans Michael MD citalopram 20 mg PO DAILY gabapentin 300 mg PO TID PRN 90 days levothyroxine 50 mcg PO DAILY lisinopril 10 mg PO DAILY 90 days sumatriptan succinate 25 mg PO Q2-4H PRN 30 days tizanidine 4 mg PO Q8H PRN 30 days trazodone 50 mg PO BEDTIME PRN HPI Comments Details: 59-year-old female presenting with concerns related to hypertension and kidney function. She initially went to the emergency room for severe temporal pain, where giant cell arteritis was suspected, but the biopsy returned negative results. During this evaluation, abnormal kidney values were noted, prompting a referral to nephrology. The patient has a long-standing history of hypertension, previously managed with lisinopril and hydrochlorothiazide, which was recently adjusted due to low blood pressure readings. She reports home blood pressure readings that are lower than those recorded in clinical settings, suggesting possible white coat hypertension. There is no recent weight change, and she maintains a diet low in salt and free from soda. The patient has a history of fibromyalgia, managed with gabapentin, which she finds beneficial. She experiences hand pain, which she attributes to arthritis, and denies the use of NSAIDs for management. Family history is significant for hypertension in both parents, with her mother having passed from pancreatic cancer and her father having heart issues. 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 Hypertension Hypothyroid Breast cancer Surgical History History of surgery History of surgery H/O bilateral mastectomy Family History Father CAD (coronary artery disease) Mother Cervical cancer Social History Housing: House Are you a primary child care team lead to a significant other at home: No Do you presently have visiting nurse or other home services: No Alcohol intake: never Patient Tobacco Use Status: Never used Tobacco Tobacco use type: Cigarette e-Cigarette/Vaping Use: Never Used Second Hand Smoke Exposure: No service: No Current occupational status: employed 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 Current occupational exposures/hazards: No Cognitive needs: No Hearing needs: No Vision needs: Yes (glasses) Review of Systems Const Denies fever(s) and Denies weight loss Card Denies chest pain Resp Denies cough and Denies hemoptysis GI Denies abdominal pain, Denies diarrhea and Denies nausea Musc Denies back pain Neuro Denies focal weakness Physical Exam Vital Signs: Last Vital Signs Pulse 67 03/07/25 09:22 BP 96/70 03/07/25 09:22 Pulse Ox 97 03/07/25 09:22 Oxygen Delivery Method Room Air 03/07/25 09:22 BMI result Body Mass Index 31.1 Const General: comfortable Nutritional Appearance: well nourished Orientation/consciousness: patient oriented x3 HEENT Head: No normal to inspection Mouth: moist mucous membranes Neck Neck: Yes supple and Yes no JVD Resp Auscultation: clear to auscultation bilaterally, no rales and rub present Cardio Jugular venous distension: no JVD Palpation: no palpable S3 and no palpable S4 Heart sounds: no rubs GI Palpation (GI): Soft to palpation and nontender Percussion: No Fluid wave present General: Yes no CVA tenderness Back/Spine/Pelvis Back: no CVA tenderness Skin General skin exam: no rashes or lesions noted Neuro General: patient oriented x3 Extrem General: Yes no pedal edema and No clubbing Results Reviewed Nephrology Results: Hgb, (12.0-16.0) 13.8 g/dl 02/03/25 WBC, (4.8-10.8) 5.1 X10*3/uL 02/03/25 Plt Count, (160-400) 231 X10*3/uL 02/03/25 Sodium, (135-145) 141 mmol/L 02/03/25 Potassium, (3.3-5.1) 4.1 mmol/L 02/03/25 Chloride, (96-108) 101 mmol/L 02/03/25 Carbon Dioxide, (22-29) 31 mmol/L H 02/03/25 BUN, (9-16) 15 mg/dL 02/03/25 Creatinine, (0.5-1.4) 1.12 mg/dL 02/03/25 Calcium, (8.4-10.2) 10.0 mg/dL 02/03/25 Assessment & Plan Assessment & Plan (1) Hypertension: Code(s): I10 - Essential (primary) hypertension Category: Medical Qualifiers: Hypertension type: primary hypertension Qualified Code(s): I10 - Essential (primary) hypertension (2) CKD (chronic kidney disease): Code(s): N18.9 - Chronic kidney disease, unspecified Category: Medical Plan Blood pressure was rather low today. Sitting blood pressure 110/70. Standing blood pressure 100/70. Asymptomatic. The mild bump in serum creatinine is probably due to hypoperfusion secondary to low blood pressure and the use of TIFFANIE inhibitors. Urine sediments bland. No significant proteinuria. Recommendations Reduce lisinopril dose to 5 mg as instructed. - Wear the 24-hour blood pressure monitor as directed. - Maintain hydration and continue low-salt diet. - Return for follow-up blood work in four weeks. Orders: Orders AMB 24 HR B/P Monitor PLACEMENT Today I10 - Essential (primary) hypertension Basic Metabolic Panel 4 Weeks I10 - Essential (primary) hypertension Coding Level of Care Code New Pt Level 4 (21640) Diagnoses Primary hypertension I10 Hypertension type: primary hypertension CKD (chronic kidney disease) N18.9
== END 2025-03-07 09:43 | disposition home or self-care (01) ==
LOC: HO.HKA 09:09
PROVIDERS: PCP Physician Assistant; Referring Provider Nurse Practitioner Family; Visit Provider Internal Medicine Hypertension Specialist
DX: I12.9 Hypertensive chronic kidney disease with stage 1 through stage 4 chronic kidney disease, or unspecified chronic kidney disease (principal); N18.9 Chronic kidney disease, unspecified
CPT/HCPCS: 99204

== ENCOUNTER → 2025-03-12 08:39 | Outpatient (BNV) | payer BC, SELFPAY | PROVIDERS: PCP Physician Assistant; Visit Provider Radiology Vascular & Interventional Radiology | DX: M50.321 Other cervical disc degeneration at C4-C5 level (principal) | CPT/HCPCS: 72141 ==

== ENCOUNTER 2025-03-12 08:41 | Outpatient (REF) | payer BC, SELFPAY ==
--- NOTE | ~2025-03-12 | MR_ITS ---
CLINICAL HISTORY: M54.12 - Radiculopathy, cervical region MR cervical spine without gadolinium Comparison: CR - XR CERVICAL SPINE MIN 6V - 02/21/25 10:14 EDT DX/AK/SR - XR CERVICAL SPINE 5V - 03/11/23 11:20 EDT Findings: There is straightening and mild reversal of the normal cervical lordosis. Multilevel disc space narrowing and disc desiccation most pronounced at C5-6 and C6-7. The spinal cord is normal in signal and caliber. Visualized portion of the posterior fossa are unremarkable. No fracture, malalignment or suspicious marrow lesion. Small hemangioma suggested within C5 anteriorly. Paravertebral soft tissues and prevertebral soft tissues are within normal limits. Individual levels: C2-C3: Unremarkable. C3-C4: Small left eccentric disc protrusion and uncovertebral spurring with resulting moderate left neural foraminal narrowing. No central canal stenosis. C4-C5: Small posterior disc protrusion with mild bilateral neural foraminal narrowing. No central canal stenosis. C5-C6: Moderate broad-based disc protrusion. Moderately severe right neural foraminal narrowing. Minimal central canal narrowing. C6-C7: Broad-based disc osteophyte complex. Moderately severe left neural foraminal narrowing. Mild right neural foraminal narrowing. Minimal central canal narrowing. C7-T1: Unremarkable. Impression: Multilevel degenerative changes most pronounced at C5-C6 and C6-C7 as detailed. This document has been electronically signed by: Flavio Wynne MD on 03/12/2025 09:40:40
== END 2025-03-12 08:42 | disposition home or self-care (01) ==
LOC: HO.MRI 08:41
PROVIDERS: PCP Physician Assistant; Visit Provider Nurse Practitioner Family
DX: M54.12 Radiculopathy, cervical region (principal); M47.812 Spondylosis without myelopathy or radiculopathy, cervical region; M50.30 Other cervical disc degeneration, unspecified cervical region
CPT/HCPCS: 72141

== ENCOUNTER 2025-03-17 08:39 | Outpatient (AMB) | payer BC, SELFPAY ==
--- NOTE | 2025-03-17 08:41 | A.OFFVIS_ITS ---
Vital Signs 03/17/25 08:43 Height 4 ft 11 in Weight 154 lb BMI 31.1 BP 165/75 H Blood Pressure Location Rt brachial Position Sitting Pulse 64 Pulse Source Pulse Oximeter Pulse Oximetry (%) 100 Oxygen Delivery Method Room Air Intake Visit Reasons: MRI & Xray follow up Intake Note: Pain today 01/22 Dinkey Brakeman Required: No Accompanied by: Self / Same As Patient Allergies codeine (CODEINE) Allergy (Intermediate, Verified 03/17/25 08:44) VOMIT HPI Comments Details: The patient is a 59-year-old female presenting with chronic neck pain and discuss recent cervical spine xray and MRI results. The neck pain has been persistent, primarily affecting the left side, with radiation to the left arm and numbness in the fingertips of both hands. The patient reports difficulty with tasks requiring english and reading instructor strength, such as opening jars, and experiences increased pain when looking up or turning the head to the left. The patient has not undergone any injections for the neck pain but is considering steroidal and diagnostic injections as a potential treatment options. The patient also reports headaches originating from the base of the skull, described as a pressure-like sensation that often leads to her pressing on the area for relief. She is prediabetic and has not experienced any significant adverse effects from her current condition on her daily activities, aside from the limitations caused by neck pain. She recently underwent right temporal artery biopsy with Dr. Sandhu on 02/24/25, which was normal. Denies any recent cough, cold, infection, fever, dizziness, chest pain, shorness of breaths or any significant changes in medical history since last office visit. Denies any changes to medications, medical history or recent hospitalizations. - Onset: Persistent neck pain primarily on the left side - Quality: Pressure-like sensation at the base of the skull; shooting, numbness, tingling, radiating - Location: Left side of the neck with radiation to the left arm and fingertips - Radiation: Occasional radiation to the right arm and numbness in fingertips - Exacerbating factors: Looking up, turning head to the left, bending, lateral rotations - Interference: Difficulty with english and reading instructor strength tasks such as opening jars - Affect: Pain impacts ability to perform tasks requiring english and reading instructor strength, movements, readings, ADLs, sleep - Analgesia: Considering steroidal and diagnostic injections for pain relief - Adverse Effects: No significant adverse effects reported - Activities of Daily Living: Limited by neck pain, particularly in tasks requiring neck movement or english and reading instructor strength - Aberrant Drug Related Behaviors: None reported PRIOR: The patient is a 59-year-old female presenting with neck pain, history of fibromyalgia and right temporal headaches since 02/01/25 after she turned her neck to the right and felt a pop. Since then she has had R sided headache and anabaptist pain which prompted her to go to [facility] [place] [facility] on . She was treated with prednisone and Vicodin, with continued right sided headache. The neck pain has been chronic but recently worsening with associated movement restriction, specifically when turning to the left, and involves frequent popping sensation. This issue arose months prior, with possible exacerbation due to underlying cervical spondylosis. Accompanying symptoms include an audible cracking sound and discomfort when the neck is moved. Neck pain radiates to left upper extremities up to the wrist with intermittent tingling in thumb. Patient completed physical therapy last year with minimal improvement. Denies previous cervical spine surgery or injections. The temporal headaches, which differ from the patient's usual migraines, are currently being evaluated by Dr. Sandhu [facility] for giant cell arteritis and plans for temporal biopsy on 02/24/25. CTA imaging were reviewed with patient today, noted below. Changes in the patient's kidney function, with a GFR of 49, possibly exacerbated by previous NSAID use, were identified alongside the chronic management of hypertension and will proceed with Nephrology evaluation. - Pain initiated months ago, accompanying neck movement with a significant audible popping sound. - Primarily located in the left cervical region with spinal movement restriction and muscle spasms. - Exacerbated by head rotation to the left and backward extension. - Pain alleviated occasionally by warmth application. - Right temporal headaches, differing from migraines, initiated weeks prior, reportedly severe. - Associated increase in blood pressure noted, potentially influencing headache severity. - Affect: Right temporal headaches and neck pain significant enough to impact mood. - Analgesia: Currently utilizing gabapentin with noted reduction in symptoms, Vicodin for headache relief previously, minimal use of NSAIDs. - Adverse Effects: No adverse effects from current analgesic regimen reported. - Activities of Daily Living: Pain restricts certain neck movements, impacting daily activities. - Aberrant Drug Related Behaviors: No signs of medication misuse. PRIOR: Patient presents today for follow up for medication review and refill. She was last seen in our office in September 2022. Patient is 1 year 3 months s/p bilateral sacroiliac joint RFA procedures with ongoing 60-70% pain relief, improved functioning, mobility, sleep and social interactions. She had right ankle sprain in September, and was followed by [facility]. Patient reports she has been taking gabapentin with good tolerance and no side effects for her chronic pain generators. She notes SIJ pain has been low but she intermittently gets tightness in her groin and lateral hips, right>work. Patient is interested to repeat sacroiliac joint RFA when her symptoms return to baseline. She is also aware of neuromodulation options and therapeutic injections. Denies any recent cough, cold, infection, fever, any significant changes in her medical history, medications or recent hospitalizations. Past Procedures: 10/07/22: Right GTB steroid injection-70% pain relief 09/06/22: Left SIJ RFA-70% pain relief 08/23/22: Right SIJ RFA-60% pain relief 08/02/22: Bilateral SIJ Innervation Acewhbdxw-30-00% pain relief for 3 days 05/07/22: Bilateral intra-articular SIJ injections with steroids- 50% pain relief for 1 week PRIOR: Patient presents today for follow up after PT and medication review. Unfortunately, due to high copays for PT, patient was not been able to start PT and has been doing stretching exercises on her own. Patient states she is trying to work out financial concerns with PT office and her insurance and is hopeful to start PT soon, especially for her ongoing neck pain. She reports tizanidine and gabapentin have been effective, well tolerates and no noted side effects except drowsiness with muscle relaxant which she is mainly takes at bedtime. Patient also has been taking Tylenol and NSAIDs with minimal pain relief. She requests refill for gabapentin. Patient continues to reports fibromyalgia, neck pain, left hip and bilateral SI joint pain, left side worse than right. We reviewed her xray imaging which is consistent with bilateral sacroiliitis. Today we discussed SIJ innervation, SIJ fusion, neuromodulation and ablation as well diagnostic and therapeutic intra- articular SIJ injections. Patient is interested to proceed with bilateral therapeutic SIJ injections at this time. PRIOR: Patient is a pleasant 56 years old female presents today for initial evaluation of multiple pain generators, including fibromyalgia, chronic left hip and ankle, left posterior thigh and left leg, neck, bilateral shoulders and hands pain. Denies any recent trauma, injury, or falls. She had multiple ER visits for multiple pain generators. Patient reports most concerning pain is the left hip that gives out at times. Pain exacerbated with prolonged sitting, walking, weight bearing, climbing stairs. Patient reports she is unable to lay on her left side due to pain. She states the pain is interfering with her sleep, acti vities, mood, quality of life, daily living and she cannot function normally. Patient works in a [employer] and walks over 8 miles per shift which significantly aggravates her symptoms. She reports chronic neck pain with muscle spasms related to osteoarthritis that radiates to her both shoulders with intermittent bilateral hand numbness and aching. Patient had a fall over a year ago and had hyperextension of her right hand backwards. She is right hand dominant. Reports bilateral aching and numbness in her hands. Patient has been seen by orthopedic services and received left shoulder cortisone on 02/05/22 and left hip cortisone injection 2 weeks ago and diclofenac gel provided her short term pain relief. Recent imaging shows no concern for left hip or pelvic fracture or dislocation. She has bilateral sacroiliitis, which is consistent with her imaging findings and exam. Left shoulder imaging showed mild acromioclavicular osteoarthritis. Patient denies previous physical therapy, chiropractic manipulation, massage or TENS unit. She denies any fever, chills, malaise, abdominal pain, lower extremity numbness or tingling, weight changes, bladder/bowel dysfunction or saddle anesthesia. She reports intermittent weakness of her left leg and both hands.? 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 Hypertension Hypothyroid Breast cancer Surgical History History of surgery History of surgery H/O bilateral mastectomy Family History Father CAD (coronary artery disease) Mother Cervical cancer Social History Housing: House Are you a primary primary health care nurse to a significant other at home: No Do you presently have visiting nurse or other home services: No Alcohol intake: never Patient Tobacco Use Status: Never used Tobacco Tobacco use type: Cigarette e-Cigarette/Vaping Use: Never Used Second Hand Smoke Exposure: No service: No Current occupational status: employed 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 occupational exposures/hazards: No Cognitive needs: No Hearing needs: No Vision needs: Yes (glasses) Review of Systems Const Details: - Neurological: Reports numbness in fingertips, denies clumsiness or imbalance, weakness, vision changes - Musculoskeletal: Reports chronic neck pain, denies any recent trauma, injury or falls - Endocrine: Reports prediabetes, denies diabetes - Head and Neck: Reports headaches originating from the base of the skull All systems reviewed & are unremarkable except as noted in HPI and below Physical Exam Vital Signs: Last Vital Signs Pulse 64 03/17/25 08:43 BP 165/75 H 03/17/25 08:43 Pulse Ox 100 03/17/25 08:43 Oxygen Delivery Method Room Air 03/17/25 08:43 BMI result Body Mass Index 31.1 General: Appears afebrile. Alert and oriented. Mood and affect appropriate. Follows and participates in conversation appropriately. Respiratory effort is unlabored. No cough. Able to transition from sit to stand unassisted. Ambulates with bilaterally normal heel strike and toe off. Eyes General: appearance normal, both eyes and all related structures Neck Other: Patient with decreased cervical ROM in all planes/especially with left lateral rotation. Reports increased pain with cervical flexion>extension. Spurling compression test equivocal. Pain is unchanged by Spurling maneuver with retraction. Elvey's tension test positive on the left, with radiation of pain from neck to wrist and into left thumb. Lhermitte's test was negative. DTR intact, +2 and symmetrical. Patient demonstrated 5/5 right and 4/5 left motor s trength of bilateral upper extremities. 2 + radial pulses. Significant tightness throughout left upper trapezius as well as TTP throughout bilateral upper trapezius and rhomboid muscles. No paravertebral tenderness over facet joints bilaterally. Neck: Yes normal visual inspection, Yes no lymphadenopathy, Yes supple, No anterior neck swelling, No torticollis, Yes no JVD, No prominent supraclavicular fat pad and Yes prominent dorsocervical fat pad (mild) General: Yes no CVA tenderness Back/Spine/Pelvis Back: no CVA tenderness Cervical Spine: No collar present, cervical muscular tenderness, pain with cervical ROM, No Cervical spine scars present, cervical spasm (right), No Cervical spine tenderness and No step off deformity Results Reviewed Results Reviewed: MR cervical spine wo con 03/12/25 CLINICAL HISTORY: M54.12 - Radiculopathy, cervical region MR cervical spine without gadolinium Comparison: CR - XR CERVICAL SPINE MIN 6V - 02/21/25 10:14 EDT DX/NE/SR - XR CERVICAL SPINE 5V - 03/11/23 11:20 EDT Findings: There is straightening and mild reversal of the normal cervical lordosis. Multilevel disc space narrowing and disc desiccation most pronounced at C5-6 and C6-7. The spinal cord is normal in signal and caliber. Visualized portion of the posterior fossa are unremarkable. No fracture, malalignment or suspicious marrow lesion. Small hemangioma suggested within C5 anteriorly. Paravertebral soft tissues and prevertebral soft tissues are within normal limits. Individual levels: C2-C3: Unremarkable. C3-C4: Small left eccentric disc protrusion and uncovertebral spurring with resulting moderate left neural foraminal narrowing. No central canal stenosis. C4-C5: Small posterior disc protrusion with mild bilateral neural foraminal narrowing. No central canal stenosis. C5-C6: Moderate broad-based disc protrusion. Moderately severe right neural foraminal narrowing. Minimal central canal narrowing. C6-C7: Broad-based disc osteophyte complex. Moderately severe left neural foraminal narrowing. Mild right neural foraminal narrowing. Minimal central canal narrowing. C7-T1: Unremarkable. Impression: Multilevel degenerative changes most pronounced at C5-C6 and C6-C7 as detailed. XR cervical spine min 6V 02/21/25 CLINICAL HISTORY: M47.812 - Spondylosis without myelopathy or radiculopathy, cervical region 8 views cervical spine Comparison: None Findings: Normal alignment. No acute fractures or dislocation. Disc space narrowing and endplate osteophyte formation at C5-C6 and C6-C7. Multilevel facet arthropathy with moderate neural foraminal stenosis at C6-C7 on the left, mild neural foraminal stenosis at C4-C5 on the right, moderate neural foraminal stenosis at C5-C6 on the right and severe neural foraminal stenosis at C6-C7 on the right. Prevertebral soft tissues within normal limits. IMPRESSION: Multilevel degenerative changes as above. Assessment & Plan Assessment & Plan (1) Cervical spondylosis: Code(s): M47.812 - Spondylosis without myelopathy or radiculopathy, cervical region Category: Medical (2) Degenerative disc disease, cervical: Code(s): M50.30 - Other cervical disc degeneration, unspecified cervical region Category: Medical (3) Cervical radiculopathy: Code(s): M54.12 - Radiculopathy, cervical region Category: Medical (4) Neuroforaminal stenosis of cervical spine: Code(s): M48.02 - Spinal stenosis, cervical region Category: Medical Plan Cervical spine xray and MRI imaging results were reviewed with patient today. Discussed interventional treatments for axial and radicular neck pain. Schedule C6-C7 Interlaminar MICAELA with local, oral Ativan and fluoroscopy for cervical radiculopathy. Expectations, risks and benefits were reviewed. Patient is aware she will be contacted to schedule this procedure. Following MICAELA injection, further evaluation will determine the need for additional treatments such as diagnostic cervical medial branch blocks for potential RFA or peripheral nerve stimulation, depending on the patient's response. All questions and concerns have been answered and patient agreed with the plan. Follow up for MRI/xrays results and sooner as needed. Patient was informed and verbally consented to the use of an ambient scribe for clinic note documentation during this visit. Coding Level of Care Code Est Pt Level 4 (60037) Complex EM visit Add On G2211 Diagnoses Cervical spondylosis M47.812 Degenerative disc disease, cervical M50.30 Cervical radiculopathy M54.12 Neuroforaminal stenosis of cervical spine M48.02
[2025-03-17 08:43] VITALS: BP 165/75; PULSE 64; O2SAT 100; BMI 31.1
== END 2025-03-17 09:02 | disposition home or self-care (01) ==
LOC: HO.PMC 08:40
PROVIDERS: PCP Physician Assistant; Visit Provider Nurse Practitioner Family
DX: M47.812 Spondylosis without myelopathy or radiculopathy, cervical region (principal); M50.30 Other cervical disc degeneration, unspecified cervical region; M54.12 Radiculopathy, cervical region; M48.02 Spinal stenosis, cervical region
CPT/HCPCS: 99214